=== PATIENT | male | born 1980 | race Caucasian/White ===

== ENCOUNTER → 2018-12-17 10:09 | Outpatient (CLI) | payer OTHER, SELFPAY ==
[2018-12-17 12:47] LABS: ALB/GLOB Ratio 1.1 RATIO (0.9-2.4); AST(SGOT) 71 U/L (15-37); Alanine Aminotransfer ALT/SGPT 90 U/L (16-61); Albumin, Serum 4.2 g/dL (3.2-5.0); Alkaline Phosphatase 85 U/L (45-117); Anion Gap 4 (5-15); BUN 11 mg/dL (7-18); BUN/Creat Ratio 11.3 RATIO (10-20); Calcium,Total 9.3 mg/dL (8.5-10.1); Chloride 109 mmol/L (98-107); Creatinine, Serum 0.97 mg/dL (0.70-1.30); EST Glomerular Filtration Rate 91 mL/min (>60); Est Glom Filt Rate - Afr Amer 110 mL/min (>60); Globulin 3.9 g/dL (2.2-4.2); Glucose 99 mg/dL (74-106); Potassium 4.5 mmol/L (3.5-5.1); Protein, Total 8.1 g/dL (6.4-8.2); Sodium Level 142 mmol/L (136-145)
[2018-12-17 12:57] LABS: Hemoglobin A1c 5.7 % (4.2-6.3)
== END ==
PROVIDERS: Family Provider Family Medicine; PCP Family Medicine; Referring Provider Family Medicine; Visit Provider Family Medicine
DX: R74.0 Nonspecific elevation of levels of transaminase and lactic acid dehydrogenase [LDH] (principal); R73.01 Impaired fasting glucose
CPT/HCPCS: 36415; 80053; 83036

== ENCOUNTER → 2018-12-24 09:59 | Outpatient (CLI) | payer OTHER, SELFPAY ==
--- NOTE | 2018-12-24 10:04 | US_ITS ---
STUDY: ABDOMINAL ULTRASOUND - RIGHT UPPER QUADRANT REASON FOR VISIT: Male, 38 years old. Elevated LFTs. TECHNIQUE: Ultrasound evaluation of the right upper quadrant was performed with real-time and static sunshine-scale imaging. TECHNICAL QUALITY: Adequate. COMPARISON: None. FINDINGS: Liver: The liver measures 18.0 cm. There is increased echogenicity consistent with fatty infiltration. The bile ducts are within normal limits. There is hepatic color flow. The direction of portal flow is hepatopetal. There is no demonstrated mass lesion. Portal vein diameter: 12.5 mm. Gallbladder: Normal distended gallbladder. The gallbladder wall measures 2.0 mm. There is a negative sonographic Kolb's sign. There is no pericholecystic fluid. There are multiple echogenic structures within the gallbladder, consistent with multiple gallstones. One of the largest is 12.6 mm diameter. Common Bile Duct (C.B.D.): The common bile duct measures 1 mm. Pancreas: Normal size of the visualized neck and body of the pancreas. The head and tail of the pancreas are partially obscured. There is normal echogenicity of the visualized pancreas. There is no demonstrated pancreatic mass or cyst. Right Kidney: Normal size of the right kidney. The right kidney measures 11.5 x 5.7 x 6.2 cm. Normal renal cortex. The right cortex measures 1.9 cm. There is no demonstrated renal mass or cyst. There is no right hydronephrosis. US/Abdomen Limited IMPRESSION: 1. Gallstones. No sonographic sign of acute cholecystitis or bile duct obstruction. 2. Mild hepatomegaly with steatosis. 3. Right kidney and visualized portions of the pancreas are unremarkable. Electronically Signed: Rey Sood MD at 18:14 EDT , Service support ,
== END ==
PROVIDERS: Family Provider Family Medicine; PCP Family Medicine; Referring Provider Family Medicine; Visit Provider Family Medicine
DX: R94.5 Abnormal results of liver function studies (principal)
CPT/HCPCS: 76705

== ENCOUNTER → 2019-12-21 09:42 | Outpatient (CLI) | payer OTHER, SELFPAY ==
[2019-12-21 12:27] LABS: AST(SGOT) 74 U/L (15-37); Alanine Aminotransfer ALT/SGPT 82 U/L (16-61); Albumin, Serum 4.1 g/dL (3.2-5.0); Alkaline Phosphatase 81 U/L (45-117); Bilirubin, Direct 0.16 mg/dL (0.00-0.30); Protein, Total 8.1 g/dL (6.4-8.2)
== END ==
PROVIDERS: PCP Family Medicine; Referring Provider Family Medicine; Visit Provider Family Medicine
DX: R79.89 Other specified abnormal findings of blood chemistry (principal)
CPT/HCPCS: 36415; 80076

== ENCOUNTER 2021-07-10 09:11 | Outpatient (CLI) | payer OTHER, SELFPAY ==
--- NOTE | 2021-07-10 09:15 | RAD_ITS ---
STUDY: X-RAY - RIGHT WRIST REASON FOR EXAM: Male, 40 years old. PAIN TECHNIQUE: 3 view(s) of the wrist were obtained. COMPARISON: None. FINDINGS: Normal visualized distal radius and ulna. Normal radiocarpal articulation. Normal distal radioulnar articulation. Normal carpal bones. Normal carpal articulations. Normal carpometacarpal articulation of the thumb. Normal second through fifth carpometacarpal articulations. Normal visualized metacarpal bones. The soft tissue structures are unremarkable. RAD/Wrist min 3 Views IMPRESSION: Normal x-ray examination of the wrist. Electronically Signed: Alberto Woodard MD at 10:22 EDT ,
[2021-07-10 10:39] LABS: ALB/GLOB Ratio 1.1 RATIO (0.9-2.4); AST(SGOT) 65 U/L (15-37); Alanine Aminotransfer ALT/SGPT 79 U/L (16-61); Albumin, Serum 4.2 g/dL (3.2-5.0); Alkaline Phosphatase 76 U/L (45-117); Anion Gap 3 (5-15); BUN 12 mg/dL (7-18); BUN/Creat Ratio 12.2 RATIO (10-20); Calcium,Total 9.5 mg/dL (8.5-10.1); Chloride 107 mmol/L (98-107); Cholesterol 201 mg/dL (200); Creatinine, Serum 0.98 mg/dL (0.70-1.30); EST Glomerular Filtration Rate 88 mL/min (>60); Est Glom Filt Rate - Afr Amer 107 mL/min (>60); Globulin 3.8 g/dL (2.2-4.2); Glucose 103 mg/dL (74-106); High Density Lipoprotein 33 mg/dL; Potassium 4.3 mmol/L (3.5-5.1); Sodium Level 139 mmol/L (136-145); Triglycerides 180 mg/dL; Very Low Density Lipoprotein 36 mg/dL (5-40)
== END 2021-07-10 23:59 | disposition home or self-care (01) ==
LOC: MTLAB 09:13
PROVIDERS: PCP Family Medicine; Referring Provider Family Medicine; Visit Provider Family Medicine
DX: E78.5 Hyperlipidemia, unspecified (principal); R79.89 Other specified abnormal findings of blood chemistry; M25.531 Pain in right wrist
CPT/HCPCS: 36415; 73110; 80053; 80061

== ENCOUNTER 2021-07-25 07:19 | Outpatient (CLI) | payer OTHER, SELFPAY ==
--- NOTE | 2021-07-25 07:26 | MRI_ITS ---
STUDY: MRI RIGHT WRIST WITHOUT CONTRAST REASON FOR EXAM: Right wrist pain for about a year, no specific injury. TECHNIQUE: Standardized fat and water weighted pulse sequences were obtained in all 3 orthogonal planes. COMPARISON: Radiographs 07/10/2021. FINDINGS: Normal visualized distal radius and ulna. There is negative ulnar variance. Normal distal radioulnar articulation (DRUJ). There is a very small central perforation of the radial aspect of the triangular fibrocartilage (inversion recovery coronal image 13). There is decreased T1 bone marrow signal throughout most of the lunate (T1 coronal images 10-15) with only very mild edema of the lunate (inversion recovery coronal images 11-14) and a fracture of the dorsal aspect of the lunate (T2 sagittal images 14, 15) consistent with Kienbock''s disease. There is cystic change of the radial aspect of the capitate (inversion recovery coronal image 13). Normal radiocarpal, intercarpal and midcarpal articulations. Normal pisotriquetral articulation. Normal visualized interosseous scapholunate ligament. Normal extensor tendons. Normal flexor tendons. Normal carpal tunnel with a normal median nerve. Normal carpometacarpal articulation of the thumb. Normal second through fifth carpometacarpal articulations. Normal visualized metacarpal bones. There is no demonstrated soft tissue abnormality. MRI/Upper Ext Joint Only(Routine) IMPRESSION: Kienbock''s disease. Very small central perforation radial aspect of the triangular fibrocartilage. Electronically Signed: Ozzie Chavez MD at 8:59 EDT ,
== END 2021-07-25 23:59 | disposition home or self-care (01) ==
LOC: MRI 07:21
PROVIDERS: PCP Family Medicine; Referring Provider Family Medicine; Visit Provider Family Medicine
DX: M25.531 Pain in right wrist (principal)
CPT/HCPCS: 73221

== ENCOUNTER → 2021-11-14 | Outpatient (CLI) | payer OTHER, SELFPAY ==
[2021-11-14 13:28] LABS: Uric Acid 6.4 mg/dL (3.5-7.2)
== END | disposition home or self-care (01) ==
LOC: MFPLAB 11:30
PROVIDERS: PCP Family Medicine; Referring Provider Family Medicine; Visit Provider Family Medicine
DX: M10.9 Gout, unspecified (principal)
CPT/HCPCS: 36415; 84550

== ENCOUNTER → 2022-07-16 | Outpatient (CLI) | payer OTHER, SELFPAY ==
[2022-07-16 13:06] LABS: ALB/GLOB Ratio 1.2 RATIO (0.9-2.4); AST(SGOT) 64 U/L (15-37); Alanine Aminotransfer ALT/SGPT 85 U/L (16-61); Albumin, Serum 4.2 g/dL (3.2-5.0); Alkaline Phosphatase 84 U/L (45-117); Anion Gap 5 (5-15); BUN 10 mg/dL (7-18); BUN/Creat Ratio 10.1 RATIO (10-20); Calcium,Total 9.1 mg/dL (8.5-10.1); Chloride 109 mmol/L (98-107); Cholesterol 191 mg/dL (200); Creatinine, Serum 0.99 mg/dL (0.70-1.30); EST Glomerular Filtration Rate 87 mL/min (>60); Est Glom Filt Rate - Afr Amer 105 mL/min (>60); Globulin 3.6 g/dL (2.2-4.2); Glucose 93 mg/dL (74-106); High Density Lipoprotein 34 mg/dL; Protein, Total 7.8 g/dL (6.4-8.2); Sodium Level 141 mmol/L (136-145); Triglycerides 179 mg/dL; Uric Acid 6.9 mg/dL (3.5-7.2); Very Low Density Lipoprotein 36 mg/dL (5-40)
== END | disposition home or self-care (01) ==
LOC: MFPLAB 11:03
PROVIDERS: PCP Family Medicine; Visit Provider Family Medicine
DX: R79.89 Other specified abnormal findings of blood chemistry (principal); E78.5 Hyperlipidemia, unspecified; M10.9 Gout, unspecified
CPT/HCPCS: 36415; 80053; 80061; 84550

== ENCOUNTER → 2022-07-26 | Outpatient (CLI) | payer OTHER, SELFPAY ==
--- NOTE | 2022-07-26 09:55 | US_ITS ---
STUDY: ABDOMINAL ULTRASOUND - RIGHT UPPER QUADRANT REASON FOR VISIT: Male, 41 years old ELEVATED LFTS TECHNIQUE: Ultrasound evaluation of the right upper quadrant was performed with real-time and static sunshine-scale imaging. TECHNICAL QUALITY: Adequate. COMPARISON: Comparison is made with prior study dated December 24, 2018. FINDINGS: Liver: The liver measures 17 cm. There is increased echogenicity consistent with fatty infiltration. The bile ducts are within normal limits. There is hepatic color flow. The direction of portal flow is hepatopetal. There is no demonstrated mass lesion. Gallbladder: Normal distended gallbladder. The gallbladder wall measures 2.0 mm. There is a negative sonographic Kolb''s sign. There is no pericholecystic fluid. There are multiple echogenic structures within the gallbladder, consistent with multiple gallstones. Common Bile Duct (C.B.D.): The common bile duct measures 3.0 mm. Pancreas: There is limited visualization of the pancreas due to overlying bowel gas. There is normal echogenicity of the pancreas. There is no demonstrated pancreatic mass or cyst. Right Kidney: Normal size of the right kidney. The right kidney measures 11.1 cm x 6.6 x 6.5 cm. Normal renal cortex. The right cortex measures 2.3 cm. There is no demonstrated renal mass or cyst. There is no right hydronephrosis. IMPRESSION: Borderline hepatomegaly and fatty infiltration of the liver. Multiple gallstones. Electronically Signed: Juan Morrell MD at 12:45 EDT , STUDY: ABDOMINAL ULTRASOUND - ELASTOGRAPHY REASON FOR VISIT: Male, 41 years old. Fatty liver. TECHNIQUE: Liver stiffness measurements were obtained on a Soxiable 85 ultrasound machine using a CA 1-7 probe following the SRU guidelines. 3 measurements were obtained using a 2-D-SWE method. TheIQR/M was 119% suggesting a quality data set. TECHNICAL QUALITY: Adequate. COMPARISON: Comparison is made with prior examination done earlier in the day. FINDINGS: Liver: Mild hepatomegaly and fatty infiltration of the liver. Median liver stiffness measured 8 kPa. US/ABD Limited w/ Elastography IMPRESSION: Liver stiffness measures 8 kPa compatible with F2-F3 (Mild to moderate liver fibrosis) Metavir score. Electronically Signed: Juan Morrell MD at 12:46 EDT ,
== END | disposition home or self-care (01) ==
LOC: US 09:54
PROVIDERS: PCP Family Medicine; Referring Provider Family Medicine; Visit Provider Family Medicine
DX: R79.89 Other specified abnormal findings of blood chemistry (principal)
CPT/HCPCS: 76705; 76981

== ENCOUNTER → 2022-11-23 | Outpatient (CLI) | payer OTHER, SELFPAY ==
[2022-11-23 10:40] LABS: Absolute Neutrophil Count 4.8 X10^3/uL (2.0-7.7); Basophil# 0.08 X10^3/uL; Basophil% 0.9 % (0-1); Eosinophil# 0.07 X10^3/uL; Eosinophils% 0.8 % (0-5); Hemoglobin 15.7 g/dL (13.0-16.5); Lymphocyte % 32.4 % (19-41); Mean Corp Hgb Conc 33.4 g/dL (32-36); Mean Corpuscular Hgb 28.9 pg (27.0-32.0); Mean Corpuscular Volume 86.4 fL (80-94); Mean Platelet Vol. 10.6 fl (6.2-12.0); Monocyte# 1.06 X10^3/uL; Monocyte% 11.9 % (0-10); NRBC Flagged by Analyzer 0 % (0-5); Neutrophil # 4.81 X10^3/uL (2.7-7.7); Neutrophil % 53.8 % (47-70); Platelet Count 268 K/mm3 (150-450); RBC Distribution Width CV 13.2 % (11.6-14.6); RBC Distribution Width SD 41.4 fl (35.1-43.9); RET-HE 32.7 pg (30-35); Red Blood Count 5.44 M/mm3 (4.6-6.2); Reticulocyte Count 1.02 % (0.5-1.5); White Blood Count 8.9 K/mm3 (4.4-11.0)
[2022-11-23 10:42] LABS: Erythrocyte Sedimentation Rate 7 mm/hr (0-20)
[2022-11-23 11:31] LABS: Hemoglobin A1c 5.6 % (3.8-5.6)
[2022-11-23 11:40] LABS: AST(SGOT) 46 U/L (15-37); Alanine Aminotransfer ALT/SGPT 68 U/L (16-61); Albumin, Serum 3.9 g/dL (3.2-5.0); Alkaline Phosphatase 86 U/L (45-117); Anion Gap 3 (5-15); BUN 12 mg/dL (7-18); BUN/Creat Ratio 12.9 RATIO (10-20); CPK Total, Creatine Kinase 279 U/L (39-308); CRP < 2.90 mg/L (0.0-3.0); Calcium,Total 9.2 mg/dL (8.5-10.1); Chloride 109 mmol/L (98-107); Creatinine, Serum 0.93 mg/dL (0.70-1.30); EST Glomerular Filtration Rate 94 mL/min (>60); Est Glom Filt Rate - Afr Amer 113 mL/min (>60); Ferritin 293 ng/mL (26-388); GGTP 27 U/L (15-85); Glucose 113 mg/dL (74-106); Iron 79 ug/dL (65-175); Iron Binding Capacity,Total 340 ug/dL (250-450); LDH 182 U/L (87-241); Potassium 4.1 mmol/L (3.5-5.1); Protein, Total 7.9 g/dL (6.4-8.2); Sodium Level 141 mmol/L (136-145)
[2022-11-23 11:56] LABS: HIV - WCH Non-Reactive (Nonreactive)
[2022-11-24 08:11] LABS: Thyroid Peroxidase AB < 9 IU/mL (0-34)
[2022-11-26 13:07] LABS: Anti-Centromere B Ab <0.2 AI (0.0-0.9); Anti-Chromatin <0.2 AI (0.0-0.9); Anti-Jo <0.2 AI (0.0-0.9); Anti-Mitochondrial AB <20.0 Units (0.0-20.0); Anti-Scleroderma-70 AB <0.2 AI (0.0-0.9); Anti-dsDNA Ab <1 IU/mL (0-9); RNP Ab <0.2 AI (0.0-0.9); SJOGREN'S Anti-SS-A test < 0.2 AI (0.0-0.9); SJOGREN'S Anti-SS-B test < 0.2 AI (0.0-0.9); Smith Ab <0.2 AI (0.0-0.9)
[2022-11-28 21:08] LABS: AFP, Tumor Marker < 1.8 ng/mL (0.0-6.9); Aldolase 4.1 U/L (3.3-10.3); Alpha-1-Globulins 0.2 g/dL (0.0-0.4); Alpha-2-Globulins 0.7 g/dL (0.4-1.0); Angiotensin Convert Enzyme 38 U/L (14-82); Anti-Smooth Muscle ABS 8 Units (0-19); CMV Acute Antibody IgM < 30.0 AU/mL (0.0-29.9); CMV Antibody IgG < 0.60 U/mL (0.00-0.59); Ceruloplasmin 21.7 mg/dL (16.0-31.0); Copper, Serum or Plasma 93 ug/dL (69-132); Cytoplasmic Ab (C-ANCA) <1:20 titer (Neg:<1:20); Deamidated Gliadin IgA 7 units (0-19); Deamidated Gliadin IgG 3 units (0-19); EBV Acute VCA IgM < 36.0 U/mL (0.0-35.9); EBV Nuclear Antigen IgG > 600.0 U/mL (0.0-17.9); Endomysial Antibody IgA Negative (Negative); Gamma Globulin 1.2 g/dL (0.4-1.8); HEPATITIS B SURFACE AG Negative (Negative); Haptoglobin 127 mg/dL (23-355); Hep C Antibodies Non Reactive (Non Reactive); Hepatitis A IgM Antibody Negative (Negative); Hepatitis B Core AB IgM Negative (Negative); IMMUNOFIXATION RESULT,S Comment: (.); Immunoglobulin A 233 mg/dL (90-386); Immunoglobulin G 1286 mg/dL (603-1613); Immunoglobulin M 73 mg/dL (20-172); PROEL- TOTAL PROTEIN 7.2 g/dL (6.0-8.5); Perinuclear Ab (P-ANCA) <1:20 titer (Neg:<1:20); QNTFERON TB Mitogen Value > 10.00 IU/mL (.); QNTFERON TB Nil Value 0.04 IU/mL (.); QNTFERON TB1+ Ag Value 0.04 IU/mL (.); QNTFERON TB2+ Ag Value 0.04 IU/mL (.); QNTIFERON TB Positive Criteria Negative (Negative); t-Transglutaminase IgA <2 U/mL (0-3)
== END | disposition home or self-care (01) ==
LOC: LAB 10:09
PROVIDERS: PCP Family Medicine; Referring Provider Internal Medicine Gastroenterology; Visit Provider Internal Medicine Gastroenterology
DX: R79.89 Other specified abnormal findings of blood chemistry (principal)
CPT/HCPCS: 36415; 80053; 80074; 82085; 82105; 82140; 82164; 82390; 82525; 82550; 82728; 82784; 82977; 83010; 83036; 83516; 83540; 83550; 83615; 84165; 84443; 85025; 85045; 85610; 85652; 86140; 86225; 86235; 86255; 86256; 86334; 86376; 86480; 86644; 86645; 86664; 86665; 86703

== ENCOUNTER → 2022-12-10 | Outpatient (CLI) | payer OTHER, SELFPAY ==
--- NOTE | 2022-12-10 08:43 | US_ITS ---
STUDY: ABDOMINAL ULTRASOUND - ELASTOGRAPHY REASON FOR VISIT: Male, 42 years old. Fatty infiltration of the liver. TECHNIQUE: Liver stiffness measurements were obtained on a Modafir[employer] RS 85 ultrasound machine using a CA 1-7 probe following the SRU guidelines. 3 measurements were obtained using a 2-D-SWE method. TheIQR/M was 15% suggesting a quality data set. TECHNICAL QUALITY: Adequate. COMPARISON: Comparison is made with prior study July 26, 2022. FINDINGS: Liver: Fatty infiltration of the liver. Median liver stiffness measured 6 kPa. Abdomen: There is no demonstrated mass lesion. US/Elastography Parenchyma/Organ IMPRESSION: Liver stiffness measures 6 kPa compatible with F2-F3 (Mild to moderate liver fibrosis) Metavir score. Electronically Signed: Juan Morrell MD at 15:13 EDT ,
== END | disposition home or self-care (01) ==
PROVIDERS: PCP Family Medicine; Referring Provider Internal Medicine Gastroenterology; Visit Provider Internal Medicine Gastroenterology
DX: R79.89 Other specified abnormal findings of blood chemistry (principal)
CPT/HCPCS: 76981

== ENCOUNTER → 2023-01-07 | Outpatient (CLI) | payer OTHER, SELFPAY ==
--- NOTE | 2023-01-07 08:53 | RAD_ITS ---
EXAM: XR RIGHT HIP WITH PELVIS WHEN PERFORMED, 2 OR 3 VIEWS CLINICAL INDICATION: pain, loss motion TECHNIQUE: Two or three views of the right hip with pelvis when performed. COMPARISON: No relevant prior studies available. FINDINGS: BONES/JOINTS: Unremarkable. No displaced fracture. No destructive or sclerotic lesions. Note that overlapping bowel shadows may however obscure fine detail. Sacroiliac joint is unremarkable. No widening of the pubic symphysis. The articular structures are unremarkable. SOFT TISSUES: Unremarkable. No soft tissue swelling or gas. RAD/HIP, UNI W/ Pelvis 2-3 Views IMPRESSION: No evidence of displaced pelvic or hip fracture. Electronically Signed: Woo Sheehan MD at 1:01 EDT ,
== END | disposition home or self-care (01) ==
LOC: MTRAD 08:37
PROVIDERS: PCP Family Medicine; Referring Provider Family Medicine; Visit Provider Family Medicine
DX: M25.551 Pain in right hip (principal)
CPT/HCPCS: 73502

== ENCOUNTER → 2023-05-23 | Outpatient (CLI) | payer OTHER, SELFPAY ==
[2023-05-23 13:59] LABS: International Normalized Ratio 0.9; Prothrombin Time (Protime)PT. 12.5 SECONDS (11.7-14.9)
[2023-05-23 14:01] LABS: ALB/GLOB Ratio 1.1 RATIO (0.9-2.4); AST(SGOT) 44 U/L (15-37); Alanine Aminotransfer ALT/SGPT 72 U/L (16-61); Albumin, Serum 4.1 g/dL (3.2-5.0); Alkaline Phosphatase 82 U/L (45-117); Anion Gap 1 (5-15); BUN 12 mg/dL (7-18); BUN/Creat Ratio 14.2 RATIO (10-20); CRP < 2.90 mg/L (0.0-3.0); Calcium,Total 9.3 mg/dL (8.5-10.1); Chloride 108 mmol/L (98-107); Creatinine, Serum 0.84 mg/dL (0.70-1.30); EST Glomerular Filtration Rate 105 mL/min (>60); Est Glom Filt Rate - Afr Amer 126 mL/min (>60); Globulin 3.9 g/dL (2.2-4.2); Glucose 100 mg/dL (74-106); Potassium 3.8 mmol/L (3.5-5.1); Sodium Level 137 mmol/L (136-145)
--- NOTE | 2023-05-23 14:02 | CT_ITS ---
STUDY: CT ABDOMEN AND PELVIS WITH CONTRAST REASON FOR EXAM: Male, 42 years old. RUQ pain, occ diarrhea. Gallstones in US. -- Persistent, low-intensity RUQ pain. NO FEVER RADIATION DOSAGE (If Supplied By Facility): CTDIvol = ( 15.66 ) mGy, DLP = ( 1194.70 ) mGycm TECHNIQUE: Transaxial images were obtained from the dome of the diaphragm to the symphysis pubis without oral contrast. 100ML ISOVUE 370 was administered. Sagittal and coronal images were reconstructed. Individualized dose optimization techniques were used for this CT. COMPARISON: None. FINDINGS: The visualized lung bases are unremarkable. The visualized portions of the heart are within normal limits. There is decreased attenuation of the liver consistent with steatosis. Borderline hepatomegaly. There are multiple gallstones. Normal spleen. Normal pancreas. Normal bilateral adrenal glands. Normal right kidney. Normal left kidney. Normal visualized stomach. Normal small intestine. Normal colon. The appendix is visualized and appears normal. Normal abdominal aorta. Normal inferior vena cava. Normal retroperitoneum. Normal urinary bladder. There is a right-sided inguinal hernia containing adipose tissue. There are mild degenerative changes of the visualized lumbar spine. Straightening of the normal lumbar lordosis. CT/Abdomen/Pelvis WITH Contrast IMPRESSION: Borderline hepatomegaly and diffuse fatty infiltration of the liver. Multiple gallstones. Electronically Signed: Juan Morrell MD at 14:59 EST ,
[2023-05-25 08:13] LABS: Carbohydrate AG 19-9 18 U/mL (0-35)
== END | disposition home or self-care (01) ==
PROVIDERS: PCP Family Medicine; Referring Provider Internal Medicine; Visit Provider Internal Medicine
DX: R10.11 Right upper quadrant pain (principal); R19.7 Diarrhea, unspecified; R79.89 Other specified abnormal findings of blood chemistry
CPT/HCPCS: 36415; 74177; 80053; 85610; 86140; 86301; Q9967

== ENCOUNTER 2023-06-20 06:37 | Day surgery (SDC) | payer OTHER, SELFPAY ==
--- NOTE | 2023-06-19 | IMM_PTH ---
PATHOLOGY RESULTS PATIENT: SUZI SPENCER LOC: EN U#:[id number] AGE/SX: 42/M ROOM: RE06/20/[address]: Dr. Seth Alvarado DO : 1980 BED: DIS: 06/20/2023 SPEC #: [id number] RECD: 06/21/23 13:17 STATUS: KYMBERLY REQ #: [id number] SAGE: 06/19/23 00:[address]: Seth Alvarado DEPT: IMMUNOHISTOCHEMISTRY RECD BY: Kelly Ferris ENTERED: 06/21/23 13:20 SP TYPE: IMMUNO OTHR DR: Dr. Prashant Taveras MD Tissues: Esophagus, NOS Procedures: P53 (initial) KI-67 (add) PHYSICIAN & INSTITUTION [place] [id number] SPECIMEN INFORMATION: Tissue Source: B - Distal esophagus Clinical Info: Elevated LFTs, NAFLD, abdominal pain Specimen Number: [id number] CPT code: 54092, 00740 METHODOLOGY: Deparaffinized sections of prefer/formalin-fixed tissue or PAP/DQ stained slides are incubated with monoclonal/polyclonal antibodies/oligonucleotide probes. Localization is made via biotin free immunoperoxidase method. Appropriate controls are performed and reacted as expected. Results on target cell population are indicated in the following table: RESULTS: ANTIBODY / CLONE RESULT Block B P53 (DO-7) negative, null pattern Ki-67 (30-9) positive, low These tests were developed and their performance characteristics determined by [facility]. They may not have been cleared or approved by the U.S. Food and Drug Administration. The FDA has determined that such clearance or approval is not necessary. The above immunohistochemical/dualISH markers are ordered and reviewed by the Pathologist. INTERPRETATION: B. Distal esophagus, biopsy: No evidence of dysplasia. AM:eduardo 06/24/2023
--- NOTE | 2023-06-19 07:30 | COLBX_PTH ---
PATHOLOGY RESULTS PATIENT: SUZI SPENCER LOC: EN U#:[id number] AGE/SX: 42/M ROOM: RE06/20/[address]: Dr. Seth Alvarado DO : 1980 BED: DIS: 06/20/2023 SPEC #: [id number] RECD: 06/20/23 10:38 STATUS: KYMBERLY DUDLEY #: [id number] SAGE: 06/19/23 07:[address]: Seth Alvarado DEPT: SURGICAL PATHOLOGY RECD BY: Lety Vargas ENTERED: 06/20/23 10:39 SP TYPE: COLON BX OTHR DR: Dr. Prashant Taveras MD Tissues: Duodenum, NOS Esophageal mucous membrane Procedures: Surgery Specimen Level IV HEADER OPERATION: Colonoscopy, EGD with biopsy PRE-OP DIAGNOSIS: Elevated LFTs, NAFLD, abdominal pain TISSUE SUBMITTED: A - Duodenum biopsy, B - Distal esophagus biopsy MICROSCOPIC DIAGNOSIS A. Duodenum, biopsy: Gastric metaplasia. Minimal nonspecific chronic inflammation. B. Distal esophagus, biopsy: Gastroesophageal junctional mucosa with chronic inflammation. 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 No evidence of dysplasia. See comment. AM:eduardo 06/21/2023 COMMENT B. Immunohistochemistry ([id number]) for P53 and Ki-67 will be performed and results will be reported separately. Alcian blue/PAS stain with matched control supports the above diagnosis. MICROSCOPIC DESCRIPTION Slides are reviewed. GROSS DESCRIPTION A - Received in fixative is one container labeled with the patient's name and designated duodenum. The specimen consists of two irregular fragments of light phelps soft tissue that in aggregate measure 0.6 x 0.6 x 0.1 cm. The specimen is totally submitted in one cassette. B - Received in fixative is one container labeled with the patient's name and designated distal esophagus biopsy. The specimen consists of two irregular fragments of light phelps soft tissue that in aggregate measure 0.7 x 0.6 x 0.1 cm. The specimen is totally submitted in one cassette. / AM:eduardo 06/20/2023 TC:3 CPT: 67394 x2, 48408
[2023-06-20 06:56] VITALS: BP 132/85; PULSE 60; RESP 16; TEMP 36.1; O2SAT 98; BMI 35.4
[2023-06-20] MEDS: Lactated Ringers 1,000 ML 15 ML IV (07:05)
--- OUTSIDE RECORDS SUMMARY | 2023-06-20 07:27 | XMS RPT_ITS | CCD ---
Author Name Unknown Address [address] [place] [address] Organization [facility] Care Team Providers Care Safety Patrol Officer Name Role Phone Neal Quintanilla MD Unavailable Medications Completed/Discontinued Medications Medication Drug Class(es) Dates Sig (Normalized) Sig (Original) Multivitamin preparation (1 source) take 1 tablet by mouth once daily MULTI-VITAMINS TABS 1 tablet by mouth once a day multivitamin [id number] Chen Muller Problems Active Problems Problem Classification Problem Date Documented Da te Episodic/Chronic Other bone disease and musculoskeletal deformities (1 source) Progressive avascular necrosis of lunate; 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] Onset: 08-08-2021 08-08-2021 Chronic Past or Other Problems Problem Classification Problem Date Documented Da te Episodic/Chronic Unclassified (1 source) Problem Results Test Name Value Interpretation Reference Range Facil ity Vital Signs Date Time Vital Sign Value Performing Clinician Facility NEGATED: Highlighted [id number] 09:15-0400 Body height 178 cm [facility] Work Phone: NEGATED: Highlighted [id number] 09:15-0400 Body height 177.8 cm [facility] Work Phone: NEGATED: Highlighted [id number] 09:15-0400 Body mass index (BMI) [Ratio] 34.56 kg/m2 [facility] Work Phone: NEGATED: Highlighted [id number] 09:15-0400 Body weight 109 kg [facility] Work Phone: NEGATED: Highlighted [id number] 09:15-0400 Body weight 108.86 kg Gena Pérez LPN [facility] Work Phone: Encounters Encounter Date Encounter Type Care Provider Facility Start: 08-08-2021 End: 08-08-2021 Ot evaluation Neal Quintanilla MD Work Phone: [facility] Work Phone: Procedures Date Procedure Procedure Detail Performing Clinician Start: 08-08-2021 End: 08-08-2021 BP scrn no perf at interval Neal Quintanilla MD Work Phone: Start: 08-08-2021 End: 08-08-2021 Calc BMI abv up allyson f/u Neal Quintanilla MD Work Phone: Start: 08-08-2021 End: 08-08-2021 Current tobacco non-user cad cap copd pv dm Neal Quintanilla MD Work Phone: Start: 08-08-2021 End: 08-08-2021 Docrev cur meds by amy Quintanilla MD Work Phone: Start: 08-08-2021 End: 08-08-2021 Pain doc pos and plan Neal Quintanilla MD Work Phone: Start: 08-08-2021 End: 08-08-2021 Patient encounter procedure Neal Quintanilla MD Work Phone: NEGATED: Highlighted rowStart: 08-08-2021 End: 08-08-2021 Documentation of current medications Gena Pérez LPN Plan of Treatment Date Care Activity Detail Author Start: 08-08-2021 End: 08-08-2021 Patient encounter procedure Appointment [facility] Work Phone: Start: 08-08-2021 End: 08-08-2021 Radex wrist complete minimum 3 views XR WRIST 3 VWS-RT [facility] Work Phone: Social History Date Type Detail Facility Start: 08-08-2021 End: 08-08-2021 Assertion Unknown if ever smoked [facility] Work Phone: NEGATED: Highlighted rowStart: 08-08-2021 End: 08-08-2021 Employment detail Employment detail [facility] Work Phone: Evaluation note Note Date & Type Note Facility Evaluation note There may be informa tion available, but it has not been provided by the sender. [facility] Work Phone: Instructions Note Date & Type Note Facility [facility] Work Phone: Chief Complaint Chief Complaint Description Start Date right wrist Preliminary chief co mplaint data, not yet signed by the author as of Advance Directives There may be information available, but it has not been provided by the sender. Family History There may be information available, but it has not been provided by the sender. Additional Source Comments Reason for Visit (unrecogniz ed section and content) FOR RECORDS PERTAINING TO PATIENTS WHO ARE OR HAVE BEEN ENROLLED IN A CHEMICAL DEPENDENCY/SUBSTANCEABUSE PROGRAM, SOME INFORMATION MAY BE OMITTED. This clinical summary was aggregated from multiple sources. Caution should be exercised in using it in the provision of clinical care. This summary normalizes information from multiple sources, and as a consequence, information in this document may materially change the coding, format and clinical context of patient data. In addition, data may be omitted in some cases. CLINICAL DECISIONS SHOULD BE BASED ON THE PRIMARY CLINICAL RECORDS. [employer] [facility]. provides no warranty or guarantee of the accuracy or completeness of information in this document.
--- NOTE | 2023-06-20 07:37 | HP.PCM_ITS ---
History and Physical Date of Admission: 06/20/23 SUZI SPENCER, is a 42 M who presents to the office today for follow up. PCP OV . for well check noting no cigarette, alcohol or illicit drug use. Notes history of elevated LFT. Biochemical 07.16.22 CMP, uric acid, triglycerides, lipids without pertinent abnormality. AST H64-ALT H85-AP 84 US RUQ and elastography 4.6.23 hepatic measurement 17cm with fatty infiltration and stiffness 8kPa *BGI established 8.4.23 for liver abnormality findings. Denies alcoholism, illicit drug use, FH liver disease or blood transfusions. US elastography .- Stiffness measures 6 kPa OV 1..- Pt well since last visit. Reports daily RUQ pain persistent, last for 2 to 3 hours gets better with Tums, more persistent for the last 3 months although it was occasional, on and off pain for the last 1 year. Sometimes, wakes him up during the night. Has occasion heartburn. Patient also states occasionally he has watery bowel movement every couple of months for about 1 year. Mother of pancreatic cancer. Is having a BM at least once a day. Lab tests from previous visit reviewed and discussed with patient and her . ROS Const Constitutional: No fatigue ENT ENT: No difficulty swallowing Gastro GI: Positive for abdominal pain and heartburn; No belching, bloating, change in bowel habits, change in stool character, coffee ground emesis, constipation, cramping, diarrhea, difficulty swallowing, feeling full early, excessive flatus, incontinent of stools, Vomiting blood/hematemesis, Blood in stool, loose stools, Black,tarry stools, nausea/dyspepsia, pain with swallowing, vomiting or other Musc Musculoskeletal: Positive for joint pain, back pain, numbness, stiffness and tingling Skin Skin: No yellowing of the eye or itchy eyes Neuro Neurology: Positive for numbness and tingling Psych Psychiatric: No anxiety and No depression Endo Endocrine: No fatigue Aller/Imm Allergy/Immunologic: No itchy eyes Oneal/Lymp Hematologic/Lymphatic: No easy bleeding or easy bruising Exam Const General: cooperative, no acute distress and well developed Nutritional Appearance: overweight Orientation: alert, awake and oriented x3 HENMT Head: normocephalic and atraumatic Nose: external nose normal Face and sinus: normal facial exam Mouth: moist mucous membranes Eyes Pupils: PERRL EOM: EOM intact bilaterally Neck Neck: normal visual inspection, no meningeal signs and trachea midline Carotids: no bruits Chest Chest palpation & inspection: normal inspection of the chest Resp Effort & Inspection: normal respiratory effort and symmetric chest movement Auscultation: Bilateral: Clear to Auscultation Cardio Palpation: normal PMI Rate: regular rate Rhythm: regular rhythm Heart Sounds: S1 normal and S2 normal GI Auscultation: normal bowel sounds Percussion: normal to percussion Palpation: soft, no hepatosplenomegaly and no guarding Other: Mild tenderness around right subcostal margin. No tenderness over epigastrium or other quadrants. Liver not enlarged. Spleen not palpable. Clinically no ascites. General: bimanual renal exam normal bilaterally, bladder normal to inspection and bladder normal to palpation Musc Musculoskeletal: No joint tenderness, joint redness, joint warmth or decreased range of motion Thoracic/Lumbar Spine: thor and lumb spine abnorm to inspection Skin General: rashes and/or lesions noted, turgor normal and no erythema Wounds: wound noted Neuro General: patient alert, patient awake, patient oriented x3 and no focal motor deficits Speech: speech normal Motor: muscle tone normal throughout Extrem General: normal exam except as noted Other: No pitting edema. Psych Appearance: grossly normal Mood: congruent mood Affect: normal affect Attitude: cooperative Assessment and Plan Assessment and Plan (1) Elevated LFTs: Status: Chronic Plan: This is 42-year-old gentleman who was established in the [facility] office in November 2022 referred for elevated liver chemistry. Patient has elevated ALT and AST 82 and 74 respectively which has improved to 68 and 46 now. His extensive workup was negative for celiac disease, autoimmune disease, ceruloplasmin, QuantiFERON test. Protein electrophoresis also looks normal fractionation of albumin, alpha-1, alpha-2 and beta globulin, and gammaglobulin. But it was reported that presence of monoclonal protein unclear but clinically patient has normal calcium does not have any bony pain anion gap therefore suspicion of monoclonal gammopathy/MGUS or multiple myeloma unlikely. Patient has elevated IgG of EBV which shows past exposure/infection. Patient had liver elastography shows 6 kPa compatible with F2 F3 liver fibrosis. Previous RUQ sonogram in July 2021 shows borderline hepatomegaly with fatty infiltration and multiple gallstones but no features of acute cholecystitis. Normal echogenicity of pancreas with no pancreatic mass or cyst. Patient further stated that his sister was diagnosed with cholangiocarcinoma and his mother recently of pancreatic cancer. CA 19-9 is ordered. Diagnosis unclear but may be NICOLAS or gallstones or peptic ulcer disease. The future course of action discussed with the patient and his . Will start with CT abdomen pelvis with oral and IV contrast, EGD and colonoscopy. If it is still diagnosis unclear will further discuss for liver biopsy/MRCP. Will follow-up in [address] abdomen pelvis, EGD and colonoscopy. (2) NAFLD (nonalcoholic fatty liver disease): Status: Chronic Plan: Possible NICOLAS but liver chemistry improving. (3) Abdominal pain: Status: Acute Qualifiers: Abdominal location: right upper quadrant Qualified Code(s): R10.11 - Right upper quadrant pain Plan: As discussed above. Orders: Orders CRP Today R10.9 - Unspecified abdominal pain Prothrombin Time w/INR Today R10.9 - Unspecified abdominal pain Comprehensive Metabolic Profil Today R10.9 - Unspecified abdominal pain Abdomen/Pelvis WITH Contrast 1 Week R10.9 - Unspecified abdominal pain Carbohydrate AG 19-9 Today R10.9 - Unspecified abdominal pain, R79.89 - Other specified abnormal findings of blood chemistry I have examined the patient and the H&P has been reviewed. There are no clinical changes since date of exam.
[2023-06-20 08:10] VITALS: BP 101/73; BP 132/85; PULSE 59; RESP 16; TEMP 36.1; O2SAT 95
[2023-06-20 08:15] VITALS: BP 132/85; BP 99/66; PULSE 57; RESP 16; O2SAT 95
--- NOTE | 2023-06-20 08:16 | OP.EGD_ITS ---
Patient Name: Jeremy Johnson Procedure Date: 06/20/2023 7:35 AM Date of : 1980 Age: 42 Procedure: Upper GI endoscopy Indications: Epigastric abdominal pain, Functional Dyspepsia Providers: Seth Alvarado DO Referring MD: Landen Taveras Medicines: Monitored Anesthesia Care Patient Profile: This is a 42 year old male. Refer to note in patient chart for documentation of history and physical. Patient has symptoms of chronic abdominal cramping, chronic abdominal distention and chronic epigastric abdominal pain. Complications: No immediate complications. Procedure: Pre-Anesthesia Assessment: - Prior to the procedure, a History and Physical was performed, and patient medications and allergies were reviewed. The patient is competent. The risks and benefits of the procedure and the sedation options and risks were discussed with the patient. All questions were answered and informed consent was obtained. Patient identification and proposed procedure were verified by the physician in the pre-procedure area. Mental Status Examination: alert and oriented. Airway Examination: normal oropharyngeal airway and neck mobility. Respiratory Examination: clear to auscultation. CV Examination: normal. Prophylactic Antibiotics: The patient does not require prophylactic antibiotics. Prior Anticoagulants: The patient has taken no anticoagulant or antiplatelet agents. ASA Grade Assessment: II - A patient with mild systemic disease. After reviewing the risks and benefits, the patient was deemed in satisfactory condition to undergo the procedure. The anesthesia plan was to use monitored anesthesia care (MAC). Immediately prior to administration of medications, the patient was re-assessed for adequacy to receive sedatives. The heart rate, respiratory rate, oxygen saturations, blood pressure, adequacy of pulmonary ventilation, and response to care were monitored throughout the procedure. The physical status of the patient was re-assessed after the procedure. After obtaining informed consent, the endoscope was passed under direct vision. Throughout the procedure, the patient's blood pressure, pulse, and oxygen saturations were monitored continuously. The Colonoscope was introduced through the mouth, and advanced to the second part of duodenum. The upper GI endoscopy was accomplished without difficulty. The patient tolerated the procedure well. Scope In: 7:45:10 AM Scope Out: 7:50:36 AM Total Procedure Duration Time 0 hours 5 minutes 26 seconds Findings: The Z-line was irregular and was found 39 cm from the incisors. Biopsies were taken with a cold forceps for histology. Verification of patient identification for the specimen was done. Estimated blood loss was minimal. A medium-sized hiatal hernia was present. No other significant abnormalities were identified in a careful examination of the stomach. Diffuse moderate inflammation characterized by congestion (edema), erosions, erythema and granularity was found in the duodenal bulb, in the first portion of the duodenum and in the second portion of the duodenum. Biopsies were taken with a cold forceps for histology. Verification of patient identification for the specimen was done. Estimated blood loss was minimal. Impression: - Z-line irregular, 39 cm from the incisors. Biopsied. - Medium-sized hiatal hernia. - Bile duodenitis. Biopsied. Recommendation: - Discharge patient to home. - Resume previous diet. - Continue present medications. - Await pathology results. Procedure Code(s): --- Professional --- 95306, Esophagogastroduodenoscopy, flexible, transoral; with biopsy, single or multiple CPT copyright 2021 [employer]. All rights reserved. The codes documented in this report are preliminary and upon criminal intelligence analyst review may be revised to meet current compliance requirements. Seth Alvarado DO 06/20/2023 8:16:26 AM This report has been signed electronically. Number of Addenda: 0 Note Initiated On: 06/20/2023 7:35 AM
--- NOTE | 2023-06-20 08:16 | OP.CCLET_ITS ---
06/20/2023 Landen Taveras [address] [place] [address] Re : Upper GI endoscopy procedure for Jeremy Johnson Dear Dr. Taveras This procedure was performed on June 20, 2023. My impressions and recommendations are as follows: Impressions : - Z-line irregular, 39 cm from the incisors. Biopsied. - Medium-sized hiatal hernia. - Bile duodenitis. Biopsied. Recommendations : - Discharge patient to home. - Resume previous diet. - Continue present medications. - Await pathology results. My findings are described in the full procedure note, which is enclosed. If I can be of further assistance, please feel free to contact me at . Sincerely, Seth Alvarado, 06/20/2023 8:16:26 AM This report has been signed electronically.
--- NOTE | 2023-06-20 08:18 | OP.CCLET_ITS ---
06/20/2023 Landen Taveras [address] [place] [address] Re : Colonoscopy procedure for Jeremy Johnson Dear Dr. Taveras This procedure was performed on June 20, 2023. My impressions and recommendations are as follows: Impressions : - No specimens collected. Recommendations : - Discharge patient to home. - Resume previous diet. - Continue present medications. - Repeat colonoscopy in 10 years for screening purposes. My findings are described in the full procedure note, which is enclosed. If I can be of further assistance, please feel free to contact me at . Sincerely, Seth Alvarado, 06/20/2023 8:18:19 AM This report has been signed electronically.
--- NOTE | 2023-06-20 08:18 | OP.COLON_ITS ---
Patient Name: Jeremy Johnson Procedure Date: 06/20/2023 7:50 AM Date of : 1980 Age: 42 Procedure: Colonoscopy Indications: Screening for colorectal malignant neoplasm Providers: Seth Alvarado DO Referring MD: Landen Taveras Medicines: Monitored Anesthesia Care Patient Profile: This is a 42 year old male. Refer to note in patient chart for documentation of history and physical. Patient has symptoms of chronic abdominal cramping, chronic abdominal distention and chronic epigastric abdominal pain. Last Colonoscopy: none. The patient's first colonoscopy is today. Complications: No immediate complications. Procedure: Pre-Anesthesia Assessment: - Prior to the procedure, a History and Physical was performed, and patient medications and allergies were reviewed. The patient is competent. The risks and benefits of the procedure and the sedation options and risks were discussed with the patient. All questions were answered and informed consent was obtained. Patient identification and proposed procedure were verified by the physician in the pre-procedure area. Mental Status Examination: alert and oriented. Airway Examination: normal oropharyngeal airway and neck mobility. Respiratory Examination: clear to auscultation. CV Examination: normal. Prophylactic Antibiotics: The patient does not require prophylactic antibiotics. Prior Anticoagulants: The patient has taken no anticoagulant or antiplatelet agents. ASA Grade Assessment: II - A patient with mild systemic disease. After reviewing the risks and benefits, the patient was deemed in satisfactory condition to undergo the procedure. The anesthesia plan was to use monitored anesthesia care (MAC). Immediately prior to administration of medications, the patient was re-assessed for adequacy to receive sedatives. The heart rate, respiratory rate, oxygen saturations, blood pressure, adequacy of pulmonary ventilation, and response to care were monitored throughout the procedure. The physical status of the patient was re-assessed after the procedure. After I obtained informed consent, the scope was passed under direct vision. Throughout the procedure, the patient's blood pressure, pulse, and oxygen saturations were monitored continuously. The Colonoscope was introduced through the anus and advanced to the cecum, identified by appendiceal orifice and ileocecal valve. The colonoscopy was performed without difficulty. The patient tolerated the procedure well. The quality of the bowel preparation was good. The ileocecal valve, appendiceal orifice, and rectum were photographed. Scope In: 7:52:26 AM Scope Withdrawal Time 0 hours 10 minutes 58 seconds Scope Out: 8:06:18 AM Total Procedure Duration Time 0 hours 13 minutes 52 seconds Findings: The perianal and digital rectal examinations were normal. Impression: - No specimens collected. Recommendation: - Discharge patient to home. - Resume previous diet. - Continue present medications. - Repeat colonoscopy in 10 years for screening purposes. Procedure Code(s): --- Professional --- G0121, Colorectal cancer screening; colonoscopy on individual not meeting criteria for high risk CPT copyright 2021 [employer]. All rights reserved. The codes documented in this report are preliminary and upon remote medical coder review may be revised to meet current compliance requirements. Seth Avlarado DO 06/20/2023 8:18:19 AM This report has been signed electronically. Number of Addenda: 0 Note Initiated On: 06/20/2023 7:50 AM
[2023-06-20 08:20] VITALS: BP 132/85; BP 97/65; PULSE 59; RESP 16; O2SAT 95
[2023-06-20 08:30] VITALS: BP 118/77; BP 132/85; PULSE 55; RESP 16; TEMP 36.4; O2SAT 96
[2023-06-20 09:05] VITALS: BP 132/85
== END 2023-06-20 09:10 | disposition home or self-care (01) ==
LOC: EN 07:22 → AC 07:23
PROVIDERS: PCP Family Medicine; Referring Provider Family Medicine; Visit Provider Internal Medicine Gastroenterology
PROC: 0DJD8ZZ Inspection of Lower Intestinal Tract, Via Natural or Artificial Opening Endoscopic (ICD-10-PCS; CPT 45378; principal; 2023-06-20 07:25)
DX: Z12.11 Encounter for screening for malignant neoplasm of colon (principal); K44.9 Diaphragmatic hernia without obstruction or gangrene; K76.0 Fatty (change of) liver, not elsewhere classified; K29.80 Duodenitis without bleeding; K30 Functional dyspepsia; R79.89 Other specified abnormal findings of blood chemistry; R10.11 Right upper quadrant pain
CPT/HCPCS: 43239; 45378; 88305; 88341; 88342; J7120; J2405

== ENCOUNTER → 2023-09-26 | Outpatient (CLI) | payer OTHER, SELFPAY ==
--- NOTE | 2023-09-26 07:20 | US_ITS ---
STUDY: ABDOMINAL ULTRASOUND - RIGHT UPPER QUADRANT; ELASTOGRAPHY REASON FOR VISIT: Male, 43 years old. Right upper quadrant pain. NAFLD. TECHNIQUE: Ultrasound evaluation of the right upper quadrant was performed with real-time and static sunshine-scale imaging. Point quantification shear wave elastography was performed ([facility]). TECHNICAL QUALITY: Limited. Examination limited due to a combination of factors including obesity and bowel gas. COMPARISON: Comparison is made with prior study July 26, 2022. FINDINGS: Liver: The liver is mildly enlarged and measures 18.5 cm. There is increased echogenicity consistent with fatty infiltration. The bile ducts are within normal limits. There is hepatic color flow. The direction of portal flow is hepatopetal. There is no demonstrated mass lesion. Focal area of decrease echotexture in the gallbladder fossa suggestive of focal fatty sparing. Median liver stiffness measured 7.2 kPa. Gallbladder: Normal distended gallbladder. The gallbladder wall measures 2.1 mm. There is a negative sonographic Kolb''s sign. There is no pericholecystic fluid. There are multiple echogenic structures within the gallbladder, consistent with multiple gallstones. Common Bile Duct (C.B.D.): The common bile duct measures 4.3 mm. Pancreas: There is normal echogenicity of the visualized pancreas. There is no demonstrated pancreatic mass or cyst. Right Kidney: Normal size of the right kidney. The right kidney measures 11.8 cm x 5.5 cm x 6.1 cm. Normal renal cortex. The right cortex measures 1.3 cm. There is no demonstrated renal mass or cyst. There is no right hydronephrosis. US/ABD Limited w/ Elastography IMPRESSION: 1. Liver stiffness measures 7.2 kPa compatible with F2-F3 (Mild to moderate liver fibrosis) Metavir score. 2. Mild hepatomegaly and fatty infiltration of the liver. 3. Multiple gallstones. Electronically Signed: Juan Morrell MD at 8:59 EDT ,
== END | disposition home or self-care (01) ==
PROVIDERS: PCP Family Medicine; Referring Provider Internal Medicine; Visit Provider Internal Medicine
DX: R10.9 Unspecified abdominal pain (principal); K76.0 Fatty (change of) liver, not elsewhere classified; R79.89 Other specified abnormal findings of blood chemistry
CPT/HCPCS: 76705; 76981

== ENCOUNTER → 2024-01-30 | Outpatient (CLI) | payer OTHER, SELFPAY ==
--- NOTE | 2024-01-30 09:45 | NM_ITS ---
CLINICAL: 43-year-old male with history of right upper quadrant abdominal pain. RADIONUCLIDE HEPATOBILIARY SCINTIGRAPHY COMPARISON: Abdominal ultrasound report 09/26/2023 FINDINGS: Following the intravenous administration of 5.9 mCi of 99m Tc Mebrofenin, hepatobiliary images reveal: 1. Relatively prompt and homogeneous radiopharmaceutical concentration is noted by a normal sized liver. No parenchymal defects are identified. 2. Gallbladder activity is identified at 30 minutes post radiopharmaceutical administration. 3. Small intestinal tract is observed at 10 minutes following tracer injection. 4. Washout of the radiopharmaceutical by the hepatic parenchyma appears qualitatively normal. Cholecystokinin (0.02 ug/kg) was administered intravenously over a 30-minute period. The post CCK gallbladder ejection fraction calculated at 21 minutes following Cholecystokinin administration was noted to be 76.0 % (normal greater than 35%). During 30 minutes of post CCK imaging, there is no scintigraphic evidence of reflux of the radiotracer into the common hepatic duct or refilling of the gallbladder. [place]/Hepatobilliary Img w/Pharm Int IMPRESSION: 1. NORMAL 99m Tc Mebrofenin hepatobiliary imaging examination with Cholecystokinin. A. A gallbladder ejection fraction calculated to be greater than 35% following the administration of Cholecystokinin makes the probability of functional hepatobiliary disease (gallbladder and/or sphincter of Oddi dyskinesia) and/or organic hepatobiliary disease (chronic acalculous cholecystitis and/or cystic duct syndrome) to be low. (Eloisa Richards et al, Journal of Nuclear Medicine 32:1695, 1991). Electronically Signed: Alberto Temple DO at 18:35 EDT ,
== END | disposition home or self-care (01) ==
PROVIDERS: PCP Family Medicine; Referring Provider Internal Medicine; Visit Provider Internal Medicine
DX: K80.00 Calculus of gallbladder with acute cholecystitis without obstruction (principal); K76.0 Fatty (change of) liver, not elsewhere classified
CPT/HCPCS: 78227; A9537; J2805

== ENCOUNTER → 2024-03-12 | Outpatient (CLI) | payer OTHER, SELFPAY ==
--- NOTE | 2024-03-12 08:08 | MRI_ITS ---
STUDY: MRI LUMBAR SPINE WITHOUT CONTRAST REASON FOR EXAM: Male, 43 years old. pain and gt;6 months. into right hip paresthesias TECHNIQUE: Standardized fat and water weighted pulse sequences were obtained in the sagittal and axial planes. COMPARISON: None FINDINGS: T12-L1: Normal endplates. Normal disc height, hydration and morphology. Normal bilateral facet joints. Normal central canal and bilateral lateral recesses. Normal bilateral intervertebral neural foramina. Normal lumbar lordosis. There is no substantial scoliosis. Normal conus medullaris that terminates at the L1/L2. L1-2: Normal endplates. Normal disc height, hydration and morphology. Normal bilateral facet joints. Normal central canal and bilateral lateral recesses. Normal bilateral intervertebral neural foramina. L2-3: Normal endplates. Normal disc height, hydration and morphology. Normal bilateral facet joints. Normal central canal and bilateral lateral recesses. Normal bilateral intervertebral neural foramina. L3-4: Small central disc protrusion produces mild spinal stenosis. No neural foraminal stenosis. L4-5: Mild bilateral facet hypertrophy and moderate ligament flavum hypertrophy. Mild broad disc protrusion produces mild spinal stenosis and mild bilateral neural foraminal stenosis. L5-S1: Mild bilateral facet hypertrophy and ligamentum flavum hypertrophy. 2 mm retrolisthesis of L5 on S1 with a mild broad disc protrusion produces moderate spinal stenosis, moderate right neural foraminal stenosis and severe left neural foraminal stenosis with effacement of left L5 nerve root laterally. Normal visualized sacral ala. Normal visualized paraspinous soft tissue structures. MRI/Spine Lumbar (Routine) IMPRESSION: Multilevel degenerative changes, as described above. Electronically Signed: Alberto Woodard MD at 12:01 EST ,
[2024-03-12 08:29] LABS: Hematocrit 45.8 % (40-54); Hemoglobin 15.4 g/dL (13.0-16.5); Mean Corp Hgb Conc 33.6 g/dL (32-36); Mean Corpuscular Hgb 28.9 pg (27.0-32.0); Mean Corpuscular Volume 85.9 fL (80-94); Platelet Count 265 K/mm3 (150-450); Red Blood Count 5.33 M/mm3 (4.6-6.2); White Blood Count 8.9 K/mm3 (4.4-11.0)
[2024-03-12 09:11] LABS: Vitamin D,25 Hydroxy 37.2 ng/mL
[2024-03-12 09:32] LABS: ALB/GLOB Ratio 1.1 RATIO (0.9-2.4); AST(SGOT) 54 U/L (15-37); Alanine Aminotransfer ALT/SGPT 75 U/L (16-61); Albumin, Serum 3.9 g/dL (3.2-5.0); Alkaline Phosphatase 86 U/L (45-117); Anion Gap 4 (5-15); BUN 15 mg/dL (7-18); BUN/Creat Ratio 17.1 RATIO (10-20); Calcium,Total 8.9 mg/dL (8.5-10.1); Chloride 112 mmol/L (98-107); Creatinine, Serum 0.88 mg/dL (0.70-1.30); EST Glomerular Filtration Rate 100 mL/min (>60); Est Glom Filt Rate - Afr Amer 120 mL/min (>60); Globulin 3.6 g/dL (2.2-4.2); Glucose 112 mg/dL (74-106); Potassium 4.1 mmol/L (3.5-5.1); Protein, Total 7.5 g/dL (6.4-8.2); Sodium Level 142 mmol/L (136-145); Uric Acid 6.1 mg/dL (3.5-7.2)
[2024-03-13 04:08] LABS: GGTP 24 IU/L (0-65)
== END | disposition home or self-care (01) ==
LOC: MRI 08:05
PROVIDERS: PCP Family Medicine; Referring Provider Family Medicine; Visit Provider Family Medicine
DX: M10.9 Gout, unspecified (principal); K76.0 Fatty (change of) liver, not elsewhere classified; M54.50 Low back pain, unspecified
CPT/HCPCS: 36415; 72148; 80053; 82306; 82977; 84550; 85027

== ENCOUNTER → 2024-04-30 | Outpatient (CLI) | payer OTHER, SELFPAY ==
[2024-04-30 09:28] LABS: Absolute Lymphocyte Count 2.75 X10^3/uL (0.83-4.51); Absolute Neutrophil Count 4.4 X10^3/uL (2.0-7.7); Basophil# 0.11 X10^3/uL; Basophil% 1.3 % (0-1); Eosinophil# 0.14 X10^3/uL; Eosinophils% 1.7 % (0-5); Hematocrit 48.5 % (40-54); Lymphocyte # 2.75 X10^3/ul (0.83-4.51); Lymphocyte % 33.1 % (19-41); Mean Corpuscular Hgb 28.1 pg (27.0-32.0); Mean Corpuscular Volume 85.2 fL (80-94); Mean Platelet Vol. 10.9 fl (6.2-12.0); Monocyte# 0.94 X10^3/uL; Monocyte% 11.3 % (0-10); NRBC Flagged by Analyzer 0 % (0-5); Neutrophil # 4.36 X10^3/uL (2.7-7.7); Neutrophil % 52.4 % (47-70); Platelet Count 253 K/mm3 (150-450); RBC Distribution Width CV 12.9 % (11.6-14.6); RBC Distribution Width SD 39.8 fl (35.1-43.9); Red Blood Count 5.69 M/mm3 (4.6-6.2); White Blood Count 8.3 K/mm3 (4.4-11.0)
[2024-04-30 09:33] LABS: Prothrombin Time (Protime)PT. 13.1 SECONDS (11.7-14.9)
[2024-04-30 09:48] LABS: Hemoglobin A1c 5.9 % (3.8-5.6)
[2024-04-30 10:14] LABS: ALB/GLOB Ratio 1.1 RATIO (0.9-2.4); AST(SGOT) 65 U/L (15-37); Alanine Aminotransfer ALT/SGPT 86 U/L (16-61); Alkaline Phosphatase 87 U/L (45-117); Anion Gap 5 (5-15); BUN 14 mg/dL (7-18); BUN/Creat Ratio 15.4 RATIO (10-20); Bilirubin, Direct 0.11 mg/dL (0.00-0.30); CRP < 2.90 mg/L (0.0-3.0); Calcium,Total 9.4 mg/dL (8.5-10.1); Chloride 108 mmol/L (98-107); Cholesterol 207 mg/dL (200); Creatinine, Serum 0.91 mg/dL (0.70-1.30); EST Glomerular Filtration Rate 95 mL/min (>60); Est Glom Filt Rate - Afr Amer 115 mL/min (>60); Globulin 3.8 g/dL (2.2-4.2); Glucose 116 mg/dL (74-106); High Density Lipoprotein 37 mg/dL; Potassium 4.5 mmol/L (3.5-5.1); Protein, Total 7.8 g/dL (6.4-8.2); Sodium Level 139 mmol/L (136-145); Triglycerides 118 mg/dL; Very Low Density Lipoprotein 24 mg/dL (5-40)
== END | disposition home or self-care (01) ==
PROVIDERS: PCP Family Medicine; Referring Provider Internal Medicine; Visit Provider Internal Medicine
DX: K76.0 Fatty (change of) liver, not elsewhere classified (principal); R19.7 Diarrhea, unspecified; R10.9 Unspecified abdominal pain
CPT/HCPCS: 36415; 80053; 80061; 82248; 83036; 85025; 85610; 86140

== ENCOUNTER → 2024-09-28 | Outpatient (CLI) | payer OTHER, SELFPAY ==
--- NOTE | 2024-09-28 10:00 | US_ITS ---
PROCEDURE: ABD LIMITED W/ ELASTOGRAPHY REASON FOR EXAM: LIVER FIBROSIS, ELEVATED LFT COMPARISON: Prior study dated September 26, 2023. TECHNIQUE: Right upper quadrant abdominal ultrasound. [facility] ElastQ Imaging shear wave elastography for non-invasive assessment of liver tissue stiffness. [facility] EPIQ Elite. FINDINGS: LIVER: Size: Enlarged (hepatomegaly) Length: 18.8 cm Echotexture: Diffusely echogenic suggesting fatty infiltration Contour: Normal Lesions: None identified Elastography: EQI Med: 5.1 kPa EQI Med Primitivo: 1.29 m/s IQR/Med: 22 %* GALLBLADDER: Multiple echogenic gallstones are identified. COMMON BILE DUCT: Normal measuring 3 mm . PANCREAS: Normal Visualized portions of the right kidney are unremarkable. No right upper quadrant ascites. US/ABD Limited w/ Elastography IMPRESSION: NO TO MILD HEPATIC FIBROSIS Reference Values: SRU <1.37 m/s (5.7kPa): No to mild fibrosis 1.37 m/s - 2.2 m/s: Moderate to severe fibrosis >2.2 m/s (15kPa): Significant fibrosis / cirrhosis METAVIR Score F2 or higher: 1.34 m/s (5.7kPa) F3 or higher: 1.55 m/s (7.3kPa) F4: 1.80 m/s (10kPa) * If the IQR/Med is >30%, the variance in the measurements is a large and the a ccuracy of the measurement may be in question. Reading Location: [place] [address]
--- OUTSIDE RECORDS SUMMARY | 2024-09-28 22:03 | XMS RPT_ITS | CCD ---
Author Organization [facility] Care Team Providers Care Netezza Developer Name Role Phone Dwight FRASER, Neal Coronado Unavailable Dr. Landen Taveras Primary Care Provider Dr. Landen Taveras Referring Provider FriendDr. Ann Attending Provider [phone] Dr. Landen Taveras Primary Care Provider Dr. Landen Taveras Referring Provider Dr. John Brand Attending Provider [phone] FriendDr. Ann Attending Provider [phone] FriendDr. Ann Other Provider John Brand Attending Unavailable Ranney, Christopher Primary Care Unavailable Rantasneem, Prashant Referring Unavailable Wuney, Christopher Primary Care Unavailable John Brand Attending Unavailable Wuney, Christophzach Referring Unavailable Ranney, Christopher Primary Care Unavailable Salvatore Low Attending Unavailable Sunday, John Referring Unavailable Ranney, Christopher Referring Unavailable John Brand Attending Unavailable Ranney, Christopher Primary Care Unavailable John Brand Attending Unavailable Sunday, John Referring Unavailable Ranney, Christopher Primary Care Unavailable Ranney, Christopher Primary Care Unavailable Prashant Taveras Attending Unavailable Ranney, Christopher Referring Unavailable John Brand Attending Unavailable Ranney, Christopher Primary Care Unavailable Sunday, John Referring Unavailable Ranney, Christopher Primary Care Unavailable Seth Alvarado Attending Unavailable Prashant Taveras Primary Care Unavailable John Brand Attending Unavailable John Brand Referring Unavailable John Brand Attending Unavailable Prashant Taveras Primary Care Unavailable John Brand Referring Unavailable Medications Current Medications Medication Drug Class(es) Dates Sig (Normalized) Sig (Original) Multivitamin (Daily Multi-Vitamin) tablet (1 source) Start: 06-17-2023 take 1 tablet by mouth once daily Multivitamin (Daily Multi-Vitamin) tablet Active 1 TABLET PO DAILY June 17, 2023 12:00am Completed/Discontinued Medications Medication Drug Class(es) Dates Sig (Normalized) Sig (Original) Multivitamin preparation (1 source) take 1 tablet by mouth once daily MULTI-VITAMINS TABS 1 tablet by mouth once a day multivitamin [id number] Chen Muller Problems Active Problems Problem Classification Problem Date Documented Da te Episodic/Chronic Abdominal pain (6 sources) Abdominal pain; Translations: [Unspecified abdominal pain] Onset: 10-04-2023 05-10-2023 Episodic Biliary tract disease (2 sources) Calculus of gallbladder without cholecystitis without obstruction; Translations: [Calculus of gallbladder with acute cholecystitis without obstruction] Onset: 02-20-2024 Episodic Disorders of lipid metabolism (1 source) Hyperlipidemia, unspecified; Translations: [Hyperlipidemia, unspecified] Onset: 09-23-2024 Chronic Gout and other crystal arthropathies (1 source) Gout, unspecified; Translations: [Gout, unspecified] Onset: 04-10-2024 Chronic Other bone disease and musculoskeletal deformities (1 source) Progressive avascular necrosis of lunate; 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] Onset: 08-08-2021 08-08-2021 Chronic Other liver diseases (6 sources) Fatty (change of) liver, not elsewhere classified; Translations: [Nonalcoholic fatty liver disease] Onset: 05-21-2024 05-10-2023 Chronic Other screening for suspected conditions (not mental disorders or infectious disease) (11 sources) Other specified abnormal findings of blood chemistry; Translations: [Elevated liver function tests] Onset: 09-23-2024 11-23-2022 Episodic Past or Other Problems Problem Classification Problem Date Documented Da te Episodic/Chronic Unclassified (1 source) Problem Results Test Name Value Interpretation Reference Range Facility Gastroenterology Visit Repor ton 08-19-2024 Gastroenterology Visit Report [facility] [address] [place] [address] OFFICE VISIT Date of Service: 08/19/24 MR#: [id number] Acct: [id number] Name: SUZI SPENCER Rep #: [id number] : 1980 Provider: Dr. John kinney MD Age/Sex: 43/M Location: [facility] Status: Signed Intake Vital Signs 04/30/24 08:29 08/19/24 08:55 Height 5 ft 9 in 5 ft 9 in Weight: 244 lb 237 lb BMI 36.0 34.9 BP 150/79 H 124/83 H Blood Pressure Location Rt brachial Rt brachial Position Sitting Sitting Respiration 16 Pulse 71 84 Pulse Source Monitor Pulse Oximetry (%) 93 95 Oxygen Delivery Method room air room air Intake Visit Reasons: 4 M FU Radiation Control Health Physicist Required: No Accompanied by: Self Is patient in pain?: No Allergies No Known Allergies Allergy (Verified 08/19/24 08:51) Medications ???Medication ???Instructions ???Recorded ???Confirmed ???Type multivitamin (Daily Multi-Vitamin 1 tab PO DAILY 06/17/23 08/19/24 History tablet) pantoprazole 40 mg tablet,delayed 40 mg PO .breakfast 1 month #30 0 07/24/24 08/19/24 Rx release tabs rosuvastatin 20 mg tablet 20 mg PO .at bed time 3 months #90 08/19/24 08/19/24 Rx tabs PFSH Medical History Back pain Non-smoker Hx of reduction of nasal fracture HLD (hyperlipidemia) Right hip pain Fatty liver Surgical History Hx of knee surgery H/O vasectomy Family History Father Diabetes Grandfather Cancer Sister Diabetes Grandmother Diabetes Lung cancer Mother Diabetes Arthritis Grandfather Heart disease Social History Smoking Status: Never smoker alcohol intake: current alcohol intake frequency: a few times a month substance use type: does not use HPI HPI Details: SUZI SPENCER, is a 43 M who presents to the office today for ???US RUQ and elastography .10.12 hepatic measurement 17cm with fatty infiltration and stiffness 8kPa *BGI established 8.4.23 for liver abnormality findings. Denies alcoholism, illicit drug use, FH liver disease or blood transfusions. US elastography 12.10.22- ???Stiffness measures 6 kPa OV 05.10.23- ???Pt well since last visit. Reports daily RUQ pain persistent, last for 2 to 3 hours gets better with Tums, more persistent for the last 3 months although it was occasional, on and off pain for the last 1 year. ???Sometimes, wakes him up during the night. Has occasion heartburn. ???Patient also states occasionally he has watery bowel movement every couple of months for about 1 year. ???Mother of pancreatic cancer. Is having a BM at least once a day. ???Lab tests from previous visit reviewed and discussed with patient and her . CT abd/pel w/ contrast .05.15- Borderline hepatomegaly with diffuse fatty liver, multiple gallstones EGD 06.20.23- Z-line irregular, medium hiatal hernia, bile duodenitis Pathology- gastric metaplasia, minimal nonspecific chronic inflammation. 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 C/O diarrhea daily but less frequent throughout the day. ???No heartburn or abdominal pain. Continues multivitamin daily. US abd/ elastography .10.13- Liver measures 18.5cm ???Stiffness 7.2 kPa OV 01.01.24- Patient well since last visit. ???About few days ago he had a large pizza at night and then had right quadrant pain severe 7-8/10 intensity similar to gallbladder colic. ???Continues Pantoprazole. BM normal once a day. 03.12.24 ???Fib-4 ???1.06 OV 1.9.25- Patient well since last visit. ???Was referred to general surgery at last visit for gallbladder but declined surgical intervention. Says he has changed his diet and has been avoiding greasy, high fat foods. Has not had anymore abdominal pain. BM are normal. ???No other concerns 04.30.24- ???Fib- 4 ??? . OV 08.19.24 Denies GI concerns at this time. During recent vacation assumes had GI illness that has since resolved. ROS Const Constitutional: No fatigue, fever(s), frequent falls, headache(s), weakness or weight change ENT ENT: No headache(s) or difficulty swallowing Resp Respiratory: No shortness of breath or wheezing Cardio Cardiology: No leg pain with exertion Gastro GI: No abdominal pain, bloating, change in bowel habits, constipation, diarrhea, heartburn, difficulty swallowing, excessive flatus, Vomiting blood/hematemesis, Blood in stool, nausea/dyspepsia or vomiting Genitourinary Male: No difficulty urinating or burning urination Musc Musculoskeletal: Positive for back pain; No joint pain, joint swelli (more content not included)... Normal [facility] Bilirubin, Directon 04-30-19 25 Bilirubin.direct [Mass/Vol] 0.11 mg/dL Normal 0.00-0.30 [facility] Comment on above: Performed By: #### L 500.4100, L501.9985, L500.4050, L300.3900, L100.0100, L501.6710, L501.4700 ####[facility] [address] [place], [place], [id number] CBC W/Diff, Automatedon Absolute Lymph 2.75 X10 3/uL Normal 0.83-4.51 [facility] Comment on above: Performed By: #### L 500.4100, L501.9985, L500.4050, L300.3900, L100.0100, L501.6710, L501.4700 ####[facility] [address] [place], [place], [id number] Absolute Neut 4.4 X10 3/uL Normal 2.0-7.7 [facility] Comment on above: Performed By: #### L 500.4100, L501.9985, L500.4050, L300.3900, L100.0100, L501.6710, L501.4700 ####[facility] [address] [place], [address] Basophils/100 WBC (Bld) 1.3 % High 0-1 [facility] Comment on above: Performed By: #### L 500.4100, L501.9985, L500.4050, L300.3900, L100.0100, L501.6710, L501.4700 ####[facility] [address] [place], [address] Eosinophils/100 WBC (Bld) 1.7 % Normal 0-5 [facility] Comment on above: Performed By: #### L 500.4100, L501.9985, L500.4050, L300.3900, L100.0100, L501.6710, L501.4700 ####[facility] [address] [place], [address] Erythrocyte distribution width (RBC) [Ratio] 12.9 % Normal 11.6-14.6 [facility] Comment on above: Performed By: #### L 500.4100, L501.9985, L500.4050, L300.3900, L100.0100, L501.6710, L501.4700 ####[facility] [address] [place], [address] Hematocrit (Bld) [Volume fraction] 48.5 % Normal 40-54 [facility] Comment on above: Performed By: #### L 500.4100, L501.9985, L500.4050, L300.3900, L100.0100, L501.6710, L501.4700 ####[facility] [address] [place], [address] Hemoglobin (Bld) [Mass/Vol] 16.0 g/dL Normal 13.0-16.5 [facility] Comment on above: Performed By: #### L 500.4100, L501.9985, L500.4050, L300.3900, L100.0100, L501.6710, L501.4700 ####[facility] [address] [place], [address] IG% 0.200 Normal 0.0-0.9 [facility] Comment on above: Result Comment: IG% - Immature Granulocytes (promyelocytes, myelocytes and metamyelocytes) > 1% indicates that a LEFT SHIFT is Present. Performed By: #### L 500.4100, L501.9985, L500.4050, L300.3900, L100.0100, L501.6710, L501.4700 ####[facility] [address] [place], [address] Lymphocytes/100 WBC (Bld) 33.1 % Normal 19-41 [facility] Comment on above: Performed By: #### L 500.4100, L501.9985, L500.4050, L300.3900, L100.0100, L501.6710, L501.4700 ####[facility] [address] [place], [address] MCH (RBC) [Entitic mass] 28.1 pg Normal 27.0-32.0 [facility] Comment on above: Performed By: #### L 500.4100, L501.9985, L500.4050, L300.3900, L100.0100, L501.6710, L501.4700 ####[facility] [address] [place], [address] MCHC (RBC) [Mass/Vol] 33.0 g/dL Normal 32-36 [facility] Comment on above: Performed By: #### L 500.4100, L501.9985, L500.4050, L300.3900, L100.0100, L501.6710, L501.4700 ####[facility] [address] [place], [address] MCV (RBC) [Entitic vol] 85.2 fL Normal 80-94 [facility] Comment on above: Performed By: #### L 500.4100, L501.9985, L500.4050, L300.3900, L100.0100, L501.6710, L501.4700 ####[facility] [address] [place], [address] Monocytes/100 WBC (Bld) 11.3 % High 0-10 [facility] Comment on above: Performed By: #### L 500.4100, L501.9985, L500.4050, L300.3900, L100.0100, L501.6710, L501.4700 ####[facility] [address] [place], [address] Neutrophils/100 WBC (Bld) 52.4 % Normal 47-70 [facility] Comment on above: Performed By: #### L 500.4100, L501.9985, L500.4050, L300.3900, L100.0100, L501.6710, L501.4700 ####[facility] [address] [place], [address] Nucleated RBC (Bld) [#/Vol] 0 10*3/uL Normal 0-5 [facility] Comment on above: Performed By: #### L 500.4100, L501.9985, L500.4050, L300.3900, L100.0100, L501.6710, L501.4700 ####[facility] [address] [place], [address] Platelet mean volume (Bld) [Entitic vol] 10.9 fL Normal 6.2-12.0 [facility] Comment on above: Performed By: #### L 500.4100, L501.9985, L500.4050, L300.3900, L100.0100, L501.6710, L501.4700 ####[facility] [address] [place], [address] Platelets (Bld) [#/Vol] 253 10*3/uL Normal 150-450 [facility] Comment on above: Performed By: #### L 500.4100, L501.9985, L500.4050, L300.3900, L100.0100, L501.6710, L501.4700 ####[facility] [address] [place], [address] RBC (Bld) [#/Vol] 5.69 10*6/uL Normal 4.6-6.[address] [facility] Comment on above: Performed By: #### L 500.4100, L501.9985, L500.4050, L300.3900, L100.0100, L501.6710, L501.4700 ####[facility] [address] [place], [address] RDW SD 39.8 fl Normal 35.1-43.9 [facility] Comment on above: Performed By: #### L 500.4100, L501.9985, L500.4050, L300.3900, L100.0100, L501.6710, L501.4700 ####[facility] [address] [place], [address] WBC (Bld) [#/Vol] 8.3 10*3/uL Normal 4.4-11.0 [facility] Comment on above: Performed By: #### L 500.4100, L501.9985, L500.4050, L300.3900, L100.0100, L501.6710, L501.4700 ####[facility] [address] [place], [address] CRPon 04-30-2024 C-REACTIVE PROT < 2.90 Normal 0.0-3.0 [facility] Comment on above: Result Comment: C-Re active Protein (CRP) provides useful information for the diagnosis, therapy and monitoring of inflammatory processes and associated diseases. For the evaluation of Relative Risk for Cardiovascular Disease, a High Sensitivity CRP (HSCRP) should be ordered. Performed By: #### L 500.4100, L501.9985, L500.4050, L300.3900, L100.0100, L501.6710, L501.4700 ####[facility] [address] [place], [address] Comprehensive Metabolic Prof ilon 04-30-2024 Albumin [Mass/Vol] 4.0 g/dL Normal 3.2-5.0 [facility] Comment on above: Performed By: #### L 500.4100, L501.9985, L500.4050, L300.3900, L100.0100, L501.6710, L501.4700 ####[facility] [address] [place], [place], [id number] Albumin/Globulin [Mass ratio] 1.1 {ratio} Normal 0.9-2.4 [facility] Comment on above: Performed By: #### L 500.4100, L501.9985, L500.4050, L300.3900, L100.0100, L501.6710, L501.4700 ####[facility] [address] [place], [place], [id number] ALK P 87 U/L Normal 45-117 [facility] Comment on above: Performed By: #### L 500.4100, L501.9985, L500.4050, L300.3900, L100.0100, L501.6710, L501.4700 ####[facility] [address] [place], [place], [id number] ALT [Catalytic activity/Vol] 86 U/L High 16-61 [facility] Comment on above: Performed By: #### L 500.4100, L501.9985, L500.4050, L300.3900, L100.0100, L501.6710, L501.4700 ####[facility] [address] [place], [address] AST [Catalytic activity/Vol] 65 U/L High 15-37 [facility] Comment on above: Performed By: #### L 500.4100, L501.9985, L500.4050, L300.3900, L100.0100, L501.6710, L501.4700 ####[facility] [address] [place], [address] Bilirubin [Mass/Vol] 0.40 mg/dL Normal 0.20-1.00 [facility] Comment on above: Result Comment: For patients on eltrombopag therapy, use of Dimension [place] TBIL is not recommended. Performed By: #### L 500.4100, L501.9985, L500.4050, L300.3900, L100.0100, L501.6710, L501.4700 ####[facility] [address] [place], [address] BUN/CRE 15.4 RATIO Normal 10-20 [facility] Comment on above: Performed By: #### L 500.4100, L501.9985, L500.4050, L300.3900, L100.0100, L501.6710, L501.4700 ####[facility] [address] [place], [address] CA,Total 9.4 mg/dL Normal 8.5-10.1 [facility] Comment on above: Performed By: #### L 500.4100, L501.9985, L500.4050, L300.3900, L100.0100, L501.6710, L501.4700 ####[facility] [address] [place], [address] Chloride [Moles/Vol] 108 mmol/L High 98-107 [facility] Comment on above: Performed By: #### L 500.4100, L501.9985, L500.4050, L300.3900, L100.0100, L501.6710, L501.4700 ####[facility] [address] [place], [address] CO2 [Moles/Vol] 26.0 mmol/L Normal 21.0-32.0 [facility] Comment on above: Performed By: #### L 500.4100, L501.9985, L500.4050, L300.3900, L100.0100, L501.6710, L501.4700 ####[facility] [address] [place], [address] Creatinine [Mass/Vol] 0.91 mg/dL Normal 0.70-1.30 [facility] Comment on above: Result Comment: The validity of the calculated GFR GFRAA in patients over 70 years has not been determined. Clinical correlation is essential. Performed By: #### L 500.4100, L501.9985, L500.4050, L300.3900, L100.0100, L501.6710, L501.4700 ####[facility] [address] [place], [address] EST GFR - AA 115 mL/min Normal >60 [facility] Comment on above: Result Comment: Afri can [place] GFR Calc Performed By: #### L 500.4100, L501.9985, L500.4050, L300.3900, L100.0100, L501.6710, L501.4700 ####[facility] [address] [place], [address] GAP 5 Normal 5-15 [facility] Comment on above: Performed By: #### L 500.4100, L501.9985, L500.4050, L300.3900, L100.0100, L501.6710, L501.4700 ####[facility] [address] [place], [address] GFR/1.73 sq M.predicted among non-blacks MDRD (S/P/Bld) [Vol rate/Area] 95 mL/min/{1.73_m2} Normal >60 [facility] Comment on above: Result Comment: Non- GFR Calc Performed By: #### L 500.4100, L501.9985, L500.4050, L300.3900, L100.0100, L501.6710, L501.4700 ####[facility] [address] [place], [address] Globulin (S) [Mass/Vol] 3.8 g/dL Normal 2.2-4.2 [facility] Comment on above: Performed By: #### L 500.4100, L501.9985, L500.4050, L300.3900, L100.0100, L501.6710, L501.4700 ####[facility] [address] [place], [address] Glucose [Mass/Vol] 116 mg/dL High 74-106 [facility] Comment on above: Result Comment: Fast ing Glucose result from 100 to 125 mg/dL suggests IMPAIRED HOMEOSTASIS per A.D.A. criteria. Performed By: #### L 500.4100, L501.9985, L500.4050, L300.3900, L100.0100, L501.6710, L501.4700 ####[facility] [address] [place], [address] Potassium [Moles/Vol] 4.5 mmol/L Normal 3.5-5.1 [facility] Comment on above: Performed By: #### L 500.4100, L501.9985, L500.4050, L300.3900, L100.0100, L501.6710, L501.4700 ####[facility] [address] [place], [address] Sodium [Moles/Vol] 139 mmol/L Normal 136-145 [facility] Comment on above: Performed By: #### L 500.4100, L501.9985, L500.4050, L300.3900, L100.0100, L501.6710, L501.4700 ####[facility] [address] [place], [address] T PROT 7.8 g/dL Normal 6.4-8.2 [facility] Comment on above: Performed By: #### L 500.4100, L501.9985, L500.4050, L300.3900, L100.0100, L501.6710, L501.4700 ####[facility] [address] [place], [address] Urea nitrogen [Mass/Vol] 14 mg/dL Normal 7-18 [facility] Comment on above: Performed By: #### L 500.4100, L501.9985, L500.4050, L300.3900, L100.0100, L501.6710, L501.4700 ####[facility] [address] [place], [address] Gastroenterology Visit Repor ton 04-30-2024 Gastroenterology Visit Report [facility] [address] [place] [address] OFFICE VISIT Date of Service: 04/30/24 MR#: [id number] Acct: [id number] Name: SUZI SPENCER Rep #: [id number] : 1980 Provider: Dr. John kinney MD Age/Sex: 43/M Location: [facility] Status: Signed with Addenda ADDENDUM by Dr. John Brand MD on 07/24/24 at 1541 HPI Details: SUZI SPENCER, is a 43 M who presents to the office today for Addendum His home medications will start he is already on pantoprazole but I sent the refill. Schedule repeat EGD in 1 to 2 months. There is only with Cruz's esophagus with no dysplasia, EGD once in 2-3 years recommended depending on the size of the segment of the Cruz's esophagus. As per last EGD, its only reported Z-line irregular without mention of Cruz's segment but pathology shows gastric metaplasia with no dysplasia therefore he has Cruz's esophagus. 07/24/24 1541 Date John Brand MD cc: Dr. Prashant Taveras MD * Signed Intake Vital Signs 01/01/24 08:25 02/21/24 13:36 04/30/24 08:29 Height 5 ft 9 in 5 ft 9 in 5 ft 9 in Weight: 244 lb 244 lb BMI 36.0 36.0 BP 138/80 H 150/79 H Blood Pressure Location Rt brachial Rt brachial Position Sitting Sitting Respiration 16 Pulse 71 Pulse Oximetry (%) 93 Oxygen Delivery Method room air Intake Visit Reasons: 4 M FU Allergies No Known Allergies Allergy (Verified 02/21/24 13:36) PFSH Medical History Back pain Non-smoker Hx of reduction of nasal fracture HLD (hyperlipidemia) Right hip pain Fatty liver Surgical History Hx of knee surgery H/O vasectomy Family History Father Diabetes Grandfather Cancer Sister Diabetes Grandmother Diabetes Lung cancer Mother Diabetes Arthritis Grandfather Heart disease Social History Smoking Status: Never smoker HPI HPI Details: SUZI SPENCER, is a 43 M who presents to the office today for follow up. PCP OV 3.27.23 for well check noting no cigarette, alcohol or illicit drug use. Notes history of elevated LFT. US RUQ and elastography 4.10.12 hepatic measurement 17cm with fatty infiltration and stiffness 8kPa *BGI established 8..23 for liver abnormality findings. Denies alcoholism, illicit drug use, FH liver disease or blood transfusions. US elastography 12.10.22- Stiffness measures 6 kPa OV 1.- Pt well since last visit. Reports daily RUQ pain persistent, last for 2 to 3 hours gets better with Tums, more persistent for the last 3 months although it was occasional, on and off pain for the last 1 year. Sometimes, wakes him up during the night. Has occasion heartburn. Patient also states occasionally he has watery bowel movement every couple of months for about 1 year. Mother of pancreatic cancer. Is having a BM at least once a day. Lab tests from previous visit reviewed and discussed with patient and her . CT abd/pel w/ contrast 2.05.15- Borderline hepatomegaly with diffuse fatty liver, multiple gallstones EGD 06.20.23- Z-line irregular, medium hiatal hernia, bile duodenitis Pathology- gastric metaplasia, minimal nonspecific chronic inflammation. 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 C/O diarrhea daily but less frequent throughout the day. No heartburn or abdominal pain. Continues multivitamin daily. US abd/ elastography 6.10.13- Liver measures 18.5cm Stiffness 7.2 kPa OV 9..24- Patient well since last visit. About few days ago he had a large pizza at night and then had right quadrant pain severe 7-8/10 intensity similar to gallbladder colic. Continues Pantoprazole. BM normal once a day. 03.12.24 Fib-4 1.06 OV 1.9.25- Patient well since last visit. Was referred to general surgery at last visit for gallbladder but declined surgical intervention. Says he has changed his diet and has been avoiding greasy, high fat foods. Has not had anymore abdominal pain. BM are normal. No other concerns. ROS Const Constitutional: No fatigue, fever(s), weakness or weight change ENT ENT: No difficulty swallowing Resp Respiratory: No shortness of breath or wheezing Cardio Cardiology: No chest pain at rest or dyspnea on exertion Gastro GI: No abdominal pain, belching, bloating, change in bowel habits, change in stool character, coffee ground emesis, constipation, cramping, diarrhea, heartburn, difficulty swallowing, feeling full early, excessive flatus, incontinent (more content not included)... Normal [facility] Hemoglobin A1con 04-30-2024 HbA1c (Bld) [Mass fraction] 5.9 % High 3.8-5.6 [facility] Comment on above: Result Comment: Norm al < 5.7 % Prediabetic 5.7 - 6.4 % Diabetic >or= 6.5 % Please note range changes. Performed By: #### L 500.4100, L501.9985, L500.4050, L300.3900, L100.0100, L501.6710, L501.4700 ####[facility] [address] [place], [place], [id number] Lipid Profileon 04-30-2024 Cholesterol [Mass/Vol] 207 mg/dL High 200 [facility] Comment on above: Result Comment: <200 mg/dL Desirable 200-240 mg/dL Borderline >240 mg/dL High Risk Performed By: #### L 500.4100, L501.9985, L500.4050, L300.3900, L100.0100, L501.6710, L501.4700 ####[facility] [address] [place], [place], [id number] Cholesterol in HDL [Mass/Vol] 37 mg/dL Low [facility] Comment on above: Result Comment: The drugs N-Acetylcysteine and Metamizole may falsely depress this assay. Reference Range HDL <40 mg/dL Low HDL Cholesterol HDL >or= 60 mg/dL High HDL Cholesterol Performed By: #### L 500.4100, L501.9985, L500.4050, L300.3900, L100.0100, L501.6710, L501.4700 ####[facility] [address] [place], [place], [phone] Cholesterol in LDL [Mass/Vol] 146 mg/dL High 0-130 [facility] Comment on above: Performed By: #### L 500.4100, L501.9985, L500.4050, L300.3900, L100.0100, L501.6710, L501.4700 ####[facility] [address] [place], [place], [phone] Cholesterol in VLDL [Mass/Vol] 24 mg/dL Normal 5-40 [facility] Comment on above: Performed By: #### L 500.4100, L501.9985, L500.4050, L300.3900, L100.0100, L501.6710, L501.4700 ####[facility] [address] [place], [place], [phone] Triglyceride [Mass/Vol] 118 mg/dL Normal [facility] Comment on above: Result Comment: The drugs N-Acetylcysteine and Metamizole may falsely depress this assay. Serum Triglycerides Reference Interval Normal <150 mg/dL Borderline high 150 - 199 mg/dL High 200 - 499 mg/dL Very High > or = 500 mg/dL Performed By: #### L 500.4100, L501.9985, L500.4050, L300.3900, L100.0100, L501.6710, L501.4700 ####[facility] [address] [place], [address] Prothrombin Time w/INRon INR Coag (PPP) [Relative time] 1.0 {INR} Normal [facility] Comment on above: Performed By: #### L 500.4100, L501.9985, L500.4050, L300.3900, L100.0100, L501.6710, L501.4700 ####[facility] [address] [place], [place], [phone] PT Coag (PPP) [Time] 13.1 s Normal 11.7-14.9 [facility] Comment on above: Performed By: #### L 500.4100, L501.9985, L500.4050, L300.3900, L100.0100, L501.6710, L501.4700 ####[facility] [address] [place], [address] L501.5101on 03-13-2024 GGTP 24 IU/L Normal 0-65 [facility] Comment on above: Order Comment: Order Date: 01/16/24Order Info: 2324-2 - GGTP Result Comment: Perf ormed at: [facility] [address] [id number] Dog Handler Or Trainer: Fred Barrera PhD, Phone: [phone] Performed By: #### L 500.4050, L506.1000, L100.0500, L501.5101, L501.1400 ####[facility] [address] [place], [address] CBC-Complete Blood Cnt No Di ffon 03-12-2024 Erythrocyte distribution width (RBC) [Ratio] 13.0 % Normal 11.6-14.6 [facility] Comment on above: Order Comment: Order Date: 01/16/24 Order Info: 14513-7 - CBC Performed By: #### L 500.4050, L506.1000, L100.0500, L501.5101, L501.1400 #### [facility] [address] [place], [address] Hematocrit (Bld) [Volume fraction] 45.8 % Normal 40-54 [facility] Comment on above: Order Comment: Order Date: 01/16/24 Order Info: 87568-6 - CBC Performed By: #### L 500.4050, L506.1000, L100.0500, L501.5101, L501.1400 #### [facility] [address] [place], [address] Hemoglobin (Bld) [Mass/Vol] 15.4 g/dL Normal 13.0-16.5 [facility] Comment on above: Order Comment: Order Date: 01/16/24 Order Info: 13509-3 - CBC Performed By: #### L 500.4050, L506.1000, L100.0500, L501.5101, L501.1400 #### [facility] [address] [place], [address] MCH (RBC) [Entitic mass] 28.9 pg Normal 27.0-32.0 [facility] Comment on above: Order Comment: Order Date: 01/16/24 Order Info: [id number] - CBC Performed By: #### L 500.4050, L506.1000, L100.0500, L501.5101, L501.1400 #### [facility] [address] [place], [address] MCHC (RBC) [Mass/Vol] 33.6 g/dL Normal 32-36 [facility] Comment on above: Order Comment: Order Date: 01/16/24 Order Info: [id number] - CBC Performed By: #### L 500.4050, L506.1000, L100.0500, L501.5101, L501.1400 #### [facility] [address] [place], [address] MCV (RBC) [Entitic vol] 85.9 fL Normal 80-94 [facility] Comment on above: Order Comment: Order Date: 01/16/24 Order Info: [id number] - CBC Performed By: #### L 500.4050, L506.1000, L100.0500, L501.5101, L501.1400 #### [facility] [address] [place], [address] Platelet mean volume (Bld) [Entitic vol] 11.0 fL Normal 6.2-12.0 [facility] Comment on above: Order Comment: Order Date: 01/16/24 Order Info: 14994-3 - CBC Performed By: #### L 500.4050, L506.1000, L100.0500, L501.5101, L501.1400 #### [facility] [address] [place], [address] Platelets (Bld) [#/Vol] 265 10*3/uL Normal 150-450 [facility] Comment on above: Order Comment: Order Date: 01/16/24 Order Info: [id number] - CBC Performed By: #### L 500.4050, L506.1000, L100.0500, L501.5101, L501.1400 #### [facility] [address] [place], [address] RBC (Bld) [#/Vol] 5.33 10*6/uL Normal 4.6-6.[address] [facility] Comment on above: Order Comment: Order Date: 01/16/24 Order Info: 45573-4 - CBC Performed By: #### L 500.4050, L506.1000, L100.0500, L501.5101, L501.1400 #### [facility] [address] [place], [address] RDW SD 40.0 fl Normal 35.1-43.9 [facility] Comment on above: Order Comment: Order Date: 01/16/24 Order Info: [id number] - CBC Performed By: #### L 500.4050, L506.1000, L100.0500, L501.5101, L501.1400 #### [facility] [address] [place], [address] WBC (Bld) [#/Vol] 8.9 10*3/uL Normal 4.4-11.0 [facility] Comment on above: Order Comment: Order Date: 01/16/24 Order Info: 94325-8 - CBC Performed By: #### L 500.4050, L506.1000, L100.0500, L501.5101, L501.1400 #### [facility] [address] [place], [address] Comprehensive Metabolic Prof ilon 03-12-2024 Albumin [Mass/Vol] 3.9 g/dL Normal 3.2-5.0 [facility] Comment on above: Order Comment: Order Date: 01/16/24 Order Info: 0786-1 - CMP Order Info: 3083-04 - URIC Performed By: #### L 500.4050, L506.1000, L100.0500, L501.5101, L501.1400 #### [facility] [address] [place], [address] Albumin/Globulin [Mass ratio] 1.1 {ratio} Normal 0.9-2.4 [facility] Comment on above: Order Comment: Order Date: 01/16/24 Order Info: 785-04 - CMP Order Info: 3083-04 - URIC Performed By: #### L 500.4050, L506.1000, L100.0500, L501.5101, L501.1400 #### [facility] [address] [place], [address] ALK P 86 U/L Normal 45-117 [facility] Comment on above: Order Comment: Order Date: 01/16/24 Order Info: 07 - CMP Order Info: 3083-04 - URIC Performed By: #### L 500.4050, L506.1000, L100.0500, L501.5101, L501.1400 #### [facility] [address] [place], [address] ALT [Catalytic activity/Vol] 75 U/L High 16-61 [facility] Comment on above: Order Comment: Order Date: 01/16/24 Order Info: 0786-1 - CMP Order Info: 3083-04 - URIC Performed By: #### L 500.4050, L506.1000, L100.0500, L501.5101, L501.1400 #### [facility] [address] [place], [address] AST [Catalytic activity/Vol] 54 U/L High 15-37 [facility] Comment on above: Order Comment: Order Date: 01/16/24 Order Info: 0786 - CMP Order Info: 3083-04 - URIC Performed By: #### L 500.4050, L506.1000, L100.0500, L501.5101, L501.1400 #### [facility] [address] [place], [address] Bilirubin [Mass/Vol] 0.50 mg/dL Normal 0.20-1.00 [facility] Comment on above: Order Comment: Order Date: 01/16/24 Order Info: 785-04 - CMP Order Info: 3083-04 - URIC Result Comment: For patients on eltrombopag therapy, use of Dimension [place] TBIL is not recommended. Performed By: #### L 500.4050, L506.1000, L100.0500, L501.5101, L501.1400 #### [facility] [address] [place], [address] BUN/CRE 17.1 RATIO Normal 10-20 [facility] Comment on above: Order Comment: Order Date: 01/16/24 Order Info: 0786 - CMP Order Info: 30807-21 - URIC Performed By: #### L 500.4050, L506.1000, L100.0500, L501.5101, L501.1400 #### [facility] [address] [place], [address] CA,Total 8.9 mg/dL Normal 8.5-10.1 [facility] Comment on above: Order Comment: Order Date: 01/16/24 Order Info: 0786- - CMP Order Info: 30807-21 - URIC Performed By: #### L 500.4050, L506.1000, L100.0500, L501.5101, L501.1400 #### [facility] [address] [place], [place], [id number] Chloride [Moles/Vol] 112 mmol/L High 98-107 [facility] Comment on above: Order Comment: Order Date: 01/16/24 Order Info: 785-04 - CMP Order Info: 3083-04 - URIC Performed By: #### L 500.4050, L506.1000, L100.0500, L501.5101, L501.1400 #### [facility] [address] [place], [address] CO2 [Moles/Vol] 26.0 mmol/L Normal 21.0-32.0 [facility] Comment on above: Order Comment: Order Date: 01/16/24 Order Info: 785-04 - CMP Order Info: 3083-04 - URIC Performed By: #### L 500.4050, L506.1000, L100.0500, L501.5101, L501.1400 #### [facility] [address] [place], [address] Creatinine [Mass/Vol] 0.88 mg/dL Normal 0.70-1.30 [facility] Comment on above: Order Comment: Order Date: 01/16/24 Order Info: 785-04 - CMP Order Info: 30807-21 - URIC Result Comment: The validity of the calculated GFR GFRAA in patients over 70 years has not been determined. Clinical correlation is essential. Performed By: #### L 500.4050, L506.1000, L100.0500, L501.5101, L501.1400 #### [facility] [address] [place], [address] EST GFR - AA 120 mL/min Normal >60 [facility] Comment on above: Order Comment: Order Date: 01/16/24 Order Info: 07 - CMP Order Info: 3083-04 - URIC Result Comment: Afri can [place] GFR Calc Performed By: #### L 500.4050, L506.1000, L100.0500, L501.5101, L501.1400 #### [facility] [address] [place], [address] GAP 4 Low 5-15 [facility] Comment on above: Order Comment: Order Date: 01/16/24 Order Info: 0786-1 - CMP Order Info: 30807-21 - URIC Performed By: #### L 500.4050, L506.1000, L100.0500, L501.5101, L501.1400 #### [facility] [address] [place], [address] GFR/1.73 sq M.predicted among non-blacks MDRD (S/P/Bld) [Vol rate/Area] 100 mL/min/{1.73_m2} Normal >60 [facility] Comment on above: Order Comment: Order Date: 01/16/24 Order Info: 0786 - CMP Order Info: 3083-04 - URIC Result Comment: Non- GFR Calc Performed By: #### L 500.4050, L506.1000, L100.0500, L501.5101, L501.1400 #### [facility] [address] [place], [address] Globulin (S) [Mass/Vol] 3.6 g/dL Normal 2.2-4.2 [facility] Comment on above: Order Comment: Order Date: 01/16/24 Order Info: 0786- - CMP Order Info: 30807-21 - URIC Performed By: #### L 500.4050, L506.1000, L100.0500, L501.5101, L501.1400 #### [facility] [address] [place], [address] Glucose [Mass/Vol] 112 mg/dL High 74-106 [facility] Comment on above: Order Comment: Order Date: 01/16/24 Order Info: 0786- - CMP Order Info: 30807-21 - URIC Result Comment: Fast ing Glucose result from 100 to 125 mg/dL suggests IMPAIRED HOMEOSTASIS per A.D.A. criteria. Performed By: #### L 500.4050, L506.1000, L100.0500, L501.5101, L501.1400 #### [facility] [address] [place], [address] Potassium [Moles/Vol] 4.1 mmol/L Normal 3.5-5.1 [facility] Comment on above: Order Comment: Order Date: 01/16/24 Order Info: 86 - CMP Order Info: 3083-04 - URIC Performed By: #### L 500.4050, L506.1000, L100.0500, L501.5101, L501.1400 #### [facility] [address] [place], [address] Sodium [Moles/Vol] 142 mmol/L Normal 136-145 [facility] Comment on above: Order Comment: Order Date: 01/16/24 Order Info: 07 - CMP Order Info: 3083-04 - URIC Performed By: #### L 500.4050, L506.1000, L100.0500, L501.5101, L501.1400 #### [facility] [address] [place], [address] T PROT 7.5 g/dL Normal 6.4-8.2 [facility] Comment on above: Order Comment: Order Date: 01/16/24 Order Info: 07 - CMP Order Info: 3083-04 - URIC Performed By: #### L 500.4050, L506.1000, L100.0500, L501.5101, L501.1400 #### [facility] [address] [place], [address] Urea nitrogen [Mass/Vol] 15 mg/dL Normal 7-18 [facility] Comment on above: Order Comment: Order Date: 01/16/24 Order Info: 0786 - CMP Order Info: 3083-04 - URIC Performed By: #### L 500.4050, L506.1000, L100.0500, L501.5101, L501.1400 #### [facility] [address] [place], [address] Spine Lumbar (Routine)on Spine Lumbar (Routine) [facility] Imaging Services [address] [place] [address] Spine Lumbar (Routine) MR#: [id number] Acct: [id number] Name: SUZI SPENCER Rep #: [id number] : 1980 M 43 From: Alberto Woodard MD PCP: Dr. Prashant Taveras MD Status: REG CLI Study: Spine Lumbar (Routine) Date of Exam: 03/12/24 Exam# [id number] Ordering Dr: Prashant Taveras [id number] STUDY: MRI LUMBAR SPINE WITHOUT CONTRAST REASON FOR EXAM: Male, 43 years old. pain and gt;6 months. into right hip paresthesias TECHNIQUE: Standardized fat and water weighted pulse sequences were obtained in the sagittal and axial planes. COMPARISON: None FINDINGS: T12-L1: Normal endplates. Normal disc height, hydration and morphology. Normal bilateral facet joints. Normal central canal and bilateral lateral recesses. Normal bilateral intervertebral neural foramina. Normal lumbar lordosis. There is no substantial scoliosis. Normal conus medullaris that terminates at the L1/L2. L1-2: Normal endplates. Normal disc height, hydration and morphology. Normal bilateral facet joints. Normal central canal and bilateral lateral recesses. Normal bilateral intervertebral neural foramina. L2-3: Normal endplates. Normal disc height, hydration and morphology. Normal bilateral facet joints. Normal central canal and bilateral lateral recesses. Normal bilateral intervertebral neural foramina. L3-4: Small central disc protrusion produces mild spinal stenosis. No neural foraminal stenosis. L4-5: Mild bilateral facet hypertrophy and moderate ligament flavum hypertrophy. Mild broad disc protrusion produces mild spinal stenosis and mild bilateral neural foraminal stenosis. L5-S1: Mild bilateral facet hypertrophy and ligamentum flavum hypertrophy. 2 mm retrolisthesis of L5 on S1 with a mild broad disc protrusion produces moderate spinal stenosis, moderate right neural foraminal stenosis and severe left neural foraminal stenosis with effacement of left L5 nerve root laterally. Normal visualized sacral ala. Normal visualized paraspinous soft tissue structures. MRI/Spine Lumbar (Routine) IMPRESSION: Multilevel degenerative changes, as described above. Electronically Signed: Alberto Woodard MD at 12:01 EST , CC: Dr. Prashant Taveras MD Tongue Trimmer: Signed Normal [facility] Uric Acidon 03-12-2024 URIC 6.1 mg/dL Normal 3.5-7.2 [facility] Comment on above: Order Comment: Order Date: 01/16/24 Order Info: 0786-1 - CMP Order Info: 3084-1 - URIC Result Comment: The drugs N-Acetylcysteine and Metamizole may falsely depress this assay. Performed By: #### L 500.4050, L506.1000, L100.0500, L501.5101, L501.1400 #### [facility] [address] [place], [place], [id number] Vitamin D,25 Hydroxyon 03-12 Vitamin D 25-OH 37.2 ng/mL Normal [facility] Comment on above: Order Comment: Order Date: 01/16/24 Order Info: 07300-1 - VITD25 Result Comment: Misa min D 25(OH) Status Range Deficiency <20 ng/mL (50nmol/L) Insufficiency 20 - 30 ng/mL (50 - 75 nmol/L) Sufficiency 30 - 100 ng/mL (75 - 250 nmol/L) Toxicity >100 ng/mL (>250 nmol/L) Performed By: #### L 500.4050, L506.1000, L100.0500, L501.5101, L501.1400 #### [facility] [address] [place], [address] Surgery Visit Reporton 02-20 Surgery Visit Report [facility] [address] [place] [address] OFFICE VISIT Date of Service: 02/21/24 MR#: [id number] Acct: [id number] Name: SUZI SPENCER Rep #: [id number] : 1980 Provider: Dr. Salvatore tejada MD Age/Sex: 43/M Location: [facility] Status: Signed Intake Vital Signs 01/01/24 08:25 02/21/24 13:36 Height 5 ft 9 in 5 ft 9 in Weight: 241 lb 244 lb BMI 35.6 36.0 BP 147/91 H 138/80 H Blood Pressure Location Rt brachial Rt brachial Position Sitting Sitting Respiration 16 Pulse 69 Pulse Oximetry (%) 94 Oxygen Delivery Method room air Intake Visit Reasons: GALLBLADDER Chief Complaint: gallbladder Radiation Control Health Physicist Required: No Is patient in pain?: No Allergies No Known Allergies Allergy (Verified 02/21/24 13:36) Medications ???Medication ???Instructions ???Recorded ???Confirmed ???Type multivitamin (Daily Multi-Vitamin 1 tab PO DAILY 06/17/23 02/21/24 History tablet) pantoprazole 40 mg tablet,delayed 40 mg PO .breakfast 1 month #30 08/27/23 02/21/24 Rx release tabs Have you fallen in the past year?: No PFSH Medical History Back pain Non-smoker Hx of reduction of nasal fracture HLD (hyperlipidemia) Right hip pain Fatty liver Surgical History Hx of knee surgery H/O vasectomy Family History Father Diabetes Grandfather Cancer Sister Diabetes Grandmother Diabetes Lung cancer Mother Diabetes Arthritis Grandfather Heart disease Social History Smoking Status: Never smoker HPI HPI HPI: Patient is a 43-year-old male here for gallstones. Patient currently says he changed his diet and he is not having any symptoms. He came here because he had 3 attacks in the middle of the night over the course of several months. He has not had one in a few weeks. He says that he is controlling them with improving his diet. ROS General General: No weight change, appetite, fatigue, colon cancer, breast cancer or weakness HEENT HEENT: No difficulty swallowing, eye injury, eye surgery, swollen glands or hoarseness Endo Endocrine: No thyroid disease, diabetes mellitus, thyroid cancer, Hair loss, heat intolerance or cold intolerance Skin Skin: No rash or changing moles Breast Breast: No left breast lump, right breast lump, nipple discharge, breast pain, abnormal mammogram, abnormal US or breast enlargement Musc Musculoskeletal: Yes back problems and gout; No arthritis, rheumatoid arthritis or joint pain Cardio Cardiovascular: No murmur, pacemaker, heart disease, atrial fibrillation, high blood pressure, heart attack, heart stent, palpitations, shortness of breat with exertion or chest pain Psych Psychiatric: No depression, anxiety or hearing voices Resp Respiratory: No shortness of breath, No sleep apnea, No cough, No COPD, No asthma, No emphysema and No wheezing Gastro Gastrointestinal: No abdominal pain, No nausea or vomiting, No diarrhea, No constipation, No blood in stool, No acid reflux, No hemorrhoids, No ulcers, Yes gallbladder problem and No black,tarry stools Oneal Hematologic: No blood thinners, No blood disorders, No bleeding, No anemia and No blood clots Neuro Neurologic: No system reviewed and no additional complaints, except as documented, No as per HPI, No abnormal gait, No abnormal hearing, No abnormal movements, No abnormal speech, No behavioral changes, No burning sensations, No confusion, No convulsions, No disequilibrium, No dizziness, No localized weakness, No frequent falls, No headache(s), No lack of coordination, No loss of vision, No memory loss, Yes numbness, No other visual disturbances, No radicular pain, No restless legs, No sensory deficit, No syncope, Yes tingling, No tremor(s), No weakness and No other Exam Const General: cooperative Orientation: alert and oriented x3 HENMT Head: normal to inspection Neck Neck: normal visual inspection and full ROM Chest Chest palpation inspection: normal inspection of the chest Resp Effort Inspection: normal respiratory effort Auscultation: clear to auscultation bilaterally Cardio Rate: regular rate Rhythm: regular rhythm GI Inspection: non-distended Palpation: soft and nontender Skin General: no rashes or lesions noted Neuro General: patient alert and patient oriented x3 Extrem General: full ROM Psych Appearance: grossly normal Mental Status: mental status grossly normal Assessment and Plan Assessment and Plan (1) Cholelithiasis: Status: Acute Plan: The patient has cholelithiasis on ultrasound and I reviewed the images with him. The p (more content not included)... Normal [facility] Hepatobilliary Img w/Pharm I nton 01-30-2024 Hepatobilliary Img w/Pharm Int [facility] Imaging Services [address] [place] [address] Hepatobilliary Img w/Pharm Int MR#: [id number] Acct: [id number] Name: SUZI SPENCER Rep #: [id number] : 1980 M 43 From: Alberto Barton PCP: Dr. Prashant Taveras MD Status: REG CLI Study: Hepatobilliary Img w/Pharm Int Date of Exam: Exam# [id number] Ordering Dr: [place] [id number] CLINICAL: 43-year-old male with history of right upper quadrant abdominal pain. RADIONUCLIDE HEPATOBILIARY SCINTIGRAPHY COMPARISON: Abdominal ultrasound report 09/26/2023 FINDINGS: Following the intravenous administration of 5.9 mCi of 99m Tc Mebrofenin, hepatobiliary images reveal: 1. Relatively prompt and homogeneous radiopharmaceutical concentration is noted by a normal sized liver. No parenchymal defects are identified. 2. Gallbladder activity is identified at 30 minutes post radiopharmaceutical administration. 3. Small intestinal tract is observed at 10 minutes following tracer injection. 4. Washout of the radiopharmaceutical by the hepatic parenchyma appears qualitatively normal. Cholecystokinin (0.02 ug/kg) was administered intravenously over a 30-minute period. The post CCK gallbladder ejection fraction calculated at 21 minutes following Cholecystokinin administration was noted to be 76.0 % (normal greater than 35%). During 30 minutes of post CCK imaging, there is no scintigraphic evidence of reflux of the radiotracer into the common hepatic duct or refilling of the gallbladder. NM/Hepatobilliary Img w/Pharm Int IMPRESSION: 1. NORMAL 99m Tc Mebrofenin hepatobiliary imaging examination with Cholecystokinin. A. A gallbladder ejection fraction calculated to be greater than 35% following the administration of Cholecystokinin makes the probability of functional hepatobiliary disease (gallbladder and/or sphincter of Oddi dyskinesia) and/or organic hepatobiliary disease (chronic acalculous cholecystitis and/or cystic duct syndrome) to be low. (Eloisa Richards et al, Journal of Nuclear Medicine 32:1695, 1991). Electronically Signed: Alberto Temple DO at 18:35 EDT Reading Location ID and State: [facility] / [place] Tel , Service support , CC: Dr. Prashant Taveras MD; Dr. John Brand MD Tongue Trimmer: Signed [facility] Gastroenterology Visit Repor ton 01-01-2024 Gastroenterology Visit Report [facility] Gastroenterology [address] [place] [address] OFFICE VISIT Date of Service: 01/01/24 MR#: [id number] Acct: [id number] Name: SUZI SPENCER Rep #: [id number] : 1980 Provider: Dr. John kinney MD Age/Sex: 43/M Location: [facility] Status: Signed Intake Vital Signs 06/20/23 06:56 01/01/24 08:25 Height 5 ft 9 in 5 ft 9 in Weight: 241 lb BMI 35.6 BP 147/91 H Blood Pressure Location Rt brachial Position Sitting Pulse 69 Pulse Oximetry (%) 94 Oxygen Delivery Method room air Intake Visit Reasons: 4 M FU Allergies No Known Allergies Allergy (Verified 01/01/24 08:26) Medications ???Medication ???Instructions ???Recorded ???Confirmed ???Type multivitamin (Daily Multi-Vitamin 1 tab PO DAILY 06/17/23 01/01/24 History tablet) pantoprazole 40 mg tablet,delayed 40 mg PO .breakfast 1 month #30 08/27/23 01/01/24 Rx release tabs PFSH Medical History Back pain Non-smoker Hx of reduction of nasal fracture HLD (hyperlipidemia) Right hip pain Fatty liver Surgical History Hx of knee surgery H/O vasectomy Family History Father Diabetes Grandfather Cancer Sister Diabetes Grandmother Diabetes Lung cancer Mother Diabetes Arthritis Grandfather Heart disease Social History Smoking Status: Never smoker HPI HPI Details: SUZI SPENCER, is a 43 M who presents to the office today for follow up. PCP OV 3..23 for wellcheck noting no cigarette, alcohol or illicit drug use. Notes history of elevated LFT. Biochemical .23 CMP, uric acid, triglycerides, lipids without pertinent abnormality. AST H64-ALT H85-AP 84 US RUQ and elastography 4.6.23 hepatic measurement 17cm with fatty infiltration and stiffness 8kPa *BGI established 8.4.23 for liver abnormality findings. Denies alcoholism, illicit drug use, FH liver disease or blood transfusions. US elastography 8..- Stiffness measures 6 kPa OV 1.19.24- Pt well since last visit. Reports daily RUQ pain persistent, last for 2 to 3 hours gets better with Tums, more persistent for the last 3 months although it was occasional, on and off pain for the last 1 year. Sometimes, wakes him up during the night. Has occasion heartburn. Patient also states occasionally he has watery bowel movement every couple of months for about 1 year. Mother of pancreatic cancer. Is having a BM at least once a day. Lab tests from previous visit reviewed and discussed with patient and her . CT abd/pel w/ contrast 2.05.15- Borderline hepatomegaly with diffuse fatty liver, multiple gallstones EGD 06.20.23- Z-line irregular, medium hiatal hernia, bile duodenitis Pathology- gastric metaplasia, minimal nonspecific chronic inflammation. 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 C/O diarrhea daily but less frequent throughout the day. No heartburn or abdominal pain. Continues multivitamin daily. US abd/ elastography .24- Liver measures 18.5cm Stiffness 7.2 kPa OV 9.24- Patient well since last visit. About few days ago he had a large pizza at night and then had right quadrant pain severe 7-8/10 intensity similar to gallbladder colic. Continues Pantoprazole. BM normal once a day. ROS Const Constitutional: No fatigue, fever(s), weakness or weight change ENT ENT: No difficulty swallowing Resp Respiratory: No shortness of breath or wheezing Cardio Cardiology: No chest pain at rest or dyspnea on exertion Gastro GI: No abdominal pain, belching, bloating, change in bowel habits, change in stool character, coffee ground emesis, constipation, cramping, diarrhea, heartburn, difficulty swallowing, feeling full early, excessive flatus, incontinent of stools, Vomiting blood/hematemesis, Blood in stool, loose stools, Black,tarry stools, nausea/dyspepsia, pain with swallowing, vomiting or other Genitourinary Male: No difficulty urinating or burning urination Musc Musculoskeletal: Positive for back pain and sciatica; No joint pain Skin Skin: No yellowing of the eye or itchy eyes Neuro Neurology: No abnormal movements, behavioral changes, weakness or lack of coordination Psych Psychiatric: No anxiety, No behavioral changes and No depression Endo Endocrine: No fatigue or weight change Aller/Imm Allergy/Immunologic: No itchy eyes or wheezing Oneal/Lymp Hematologic/Lymphatic: No easy bleeding or easy bruising Exam Const General: cooperative, no acute distress and well developed Nutritional (more content not included)... [facility] ABD Limited w/ Elastographyo n 09-26-2023 ABD Limited w/ Elastography [facility] Imaging Services [address] [address] ABD Limited w/ Elastography MR#: [id number] Acct: [id number] Name: SUZI SPENCER CHEN Rep #: [id number] : 1980 M 43 From: Juan pope MD PCP: Dr. Prashant Taveras MD Status: REG CLI Study: ABD Limited w/ Elastography Date of Exam: 10/13 Exam# [id number] Ordering [place]: [place] [id number] STUDY: ABDOMINAL ULTRASOUND - RIGHT UPPER QUADRANT; ELASTOGRAPHY REASON FOR VISIT: Male, 43 years old. Right upper quadrant pain. NAFLD. TECHNIQUE: Ultrasound evaluation of the right upper quadrant was performed with real-time and static sunshine-scale imaging. Point quantification shear wave elastography was performed (Kazeon). TECHNICAL QUALITY: Limited. Examination limited due to a combination of factors including obesity and bowel gas. COMPARISON: Comparison is made with prior study July 26, 2022. FINDINGS: Liver: The liver is mildly enlarged and measures 18.5 cm. There is increased echogenicity consistent with fatty infiltration. The bile ducts are within normal limits. There is hepatic color flow. The direction of portal flow is hepatopetal. There is no demonstrated mass lesion. Focal area of decrease echotexture in the gallbladder fossa suggestive of focal fatty sparing. Median liver stiffness measured 7.2 kPa. Gallbladder: Normal distended gallbladder. The gallbladder wall measures 2.1 mm. There is a negative sonographic Kolb''s sign. There is no pericholecystic fluid. There are multiple echogenic structures within the gallbladder, consistent with multiple gallstones. Common Bile Duct (C.B.D.): The common bile duct measures 4.3 mm. Pancreas: There is normal echogenicity of the visualized pancreas. There is no demonstrated pancreatic mass or cyst. Right Kidney: Normal size of the right kidney. The right kidney measures 11.8 cm x 5.5 cm x 6.1 cm. Normal renal cortex. The right cortex measures 1.3 cm. There is no demonstrated renal mass or cyst. There is no right hydronephrosis. US/ABD Limited w/ Elastography IMPRESSION: 1. Liver stiffness measures 7.2 kPa compatible with F2-F3 (Mild to moderate liver fibrosis) Metavir score. 2. Mild hepatomegaly and fatty infiltration of the liver. 3. Multiple gallstones. Electronically Signed: Juan Morrell MD at 8:59 EDT , CC: Dr. Prashant Taveras MD; Dr. John Brand MD Tongue Trimmer: Signed [facility] Basophil percentageOrdered B y: John Brand on 05-23-2023 Bilirubin [Mass/Vol] 0.40 mg/dL 0.20-1.00 [facility] Comment on above: For patients on eltr ombopag therapy, use of Dimension [place] TBIL is not recommended. Chloride [Moles/Vol] 108 mmol/L 98-107 [facility] Glucose [Mass/Vol] 100 mg/dL 74-106 [facility] Comment on above: Fasting Glucose resu lt from 100 to 125 mg/dL suggests IMPAIRED HOMEOSTASIS per A.D.A. criteria. Potassium [Moles/Vol] 3.8 mmol/L 3.5-5.1 [facility] Protein [Mass/Vol] 8.0 g/dL 6.4-8.2 [facility] Sodium [Moles/Vol] 137 mmol/L 136-145 [facility] International normalized rat io (INR) calculationOrdered By: John Brand on 05-23-2023 INR Coag (PPP) [Relative time] 0.9 {INR} [facility] - Chemistry and C hemistry - challengeOrdered By: John Brand on 05-23-2023 Albumin/Globulin [Mass ratio] 1.1 {ratio} 0.9-2.4 [facility] ALP [Catalytic activity/Vol] 82 U/L 45-117 [facility] ALT [Catalytic activity/Vol] 72 U/L 16-61 [facility] CO2 [Moles/Vol] 28.0 mmol/L 21.0-32.0 [facility] Globulin (S) [Mass/Vol] 3.9 g/dL 2.2-4.2 [facility] Urea nitrogen/Creatinine [Mass ratio] 14.2 mg/mg 10-20 [facility] - CoagulationOrde red By: John Brand on 05-23-2023 PT Coag (PPP) [Time] 12.5 s 11.7-14.9 [facility] No Panel InformationOrdered By: John Brand on 05-23-2023 C-Reactive Protein Extended Range < 2.90 mg/L 0.0-3.0 [facility] Comment on above: C-Reactive Protein ( CRP) provides useful information for thediagnosis, therapy and monitoring of inflammatory processesand associated diseases. For the evaluation of Relative Riskfor Cardiovascular Disease, a High Sensitivity CRP (HSCRP)should be ordered. CA 19-9 Antigen 18 U/mL 0-35 [facility] Comment on above: [facility] El ectrochemiluminescence Immunoassay(ECLIA)Values obtained with different assay methods or kits cannotbe used interchangeably. Results cannot be interpreted asabsolute evidence of the presence or absence of malignantdisease.Performed at: [facility] [id number] Director: Fred Barrera PhD, Phone: [phone] Estimated GFR (MDRD) Amer 126 mL/min >60 [facility] Comment on above: GFR Calc Estimated GFR (MDRD) Non-Af Amer 105 mL/min >60 [facility] Comment on above: Non- GFR Calc Serum or plasma calcium alex urement (mass/volume)Ordered By: John Brand on 05-23-2023 Calcium [Mass/Vol] 9.3 mg/dL 8.5-10.1 [facility] Serum or plasma creatinine m easurement (mass/volume)Ordered By: John Brand on 05-23-2023 Creatinine [Mass/Vol] 0.84 mg/dL 0.70-1.30 [facility] Comment on above: The validity of the calculated GFR & GFRAA in patients over 70 years has not been determined. Clinical correlation is essential. Serum or plasma urea nitroge n measurement (mass/volume)Ordered By: John Brand on 05-23-2023 Urea nitrogen [Mass/Vol] 12 mg/dL 7-18 [facility] Thin prep Papanicolaou smear with manual screeningOrdered By: John Brand on 05-23-2023 Thin prep Papanicolaou smear with manual screening 4.1 g/dL 3.2-5.0 [facility] Thin prep Papanicolaou smear with manual screening 44 U/L 15-37 [facility] Thin prep Papanicolaou smear with manual screening 1 5-15 [facility] Absolute lymphocyte countOrd ered By: Seth Alvarado on 11-23-2022 Lymphocytes Auto (Unsp spec) [#/Vol] 2.90 10*3/uL 0.83-4.51 [facility] Albumin Elph [Mass/Vol]Order ed By: Seth Alvarado on 11-23-2022 Albumin [Mass/Vol] 4.0 g/dL 2.9-4.4 [facility] Aldolase ser/plasOrdered By: Seth Alvarado on 11-23-2022 Aldolase [Catalytic activity/Vol] 4.1 mU/mL 3.3-10.3 [facility] Comment on above: Performed at: [facility] [place] [id number] Director: Fred Barrera PhD, Phone: [phone] at: [facility] [id number] Director: Rohit Herndon MD, Phone: [phone] Atypical perinuclear antineu trophil cytoplasmic antibodies measurementOrdered By: Seth Alvarado on 11-23-2022 Neutrophil cytoplasmic Ab.perinuclear.atypical IF (S) [Titer] <1:20 titer Neg:<1:20 [facility] Comment on above: The atypical pANCA p attern has been observed in asignificant percentage of patients with ulcerative colitis,primary sclerosing cholangitis and autoimmune hepatitis. Basophil percentageOrdered B y: Seth Alvarado on 11-23-2022 Ammonia (P) [Moles/Vol] 16.0 umol/L 11-32 [facility] Basophil percentage < 0.2 AI 0.0-0.[address] [facility] Basophils/100 WBC (Bld) 0.9 % 0-1 [facility] Bilirubin [Mass/Vol] 0.50 mg/dL 0.20-1.00 [facility] Comment on above: For patients on eltr ombopag therapy, use of Dimension [place] TBIL is not recommended. Chloride [Moles/Vol] 109 mmol/L 98-107 [facility] Eosinophils/100 WBC (Bld) 0.8 % 0-5 [facility] Glucose [Mass/Vol] 113 mg/dL 74-106 [facility] Comment on above: Fasting Glucose resu lt from 100 to 125 mg/dL suggests IMPAIRED HOMEOSTASIS per A.D.A. criteria. LDH [Catalytic activity/Vol] 182 U/L 87-241 [facility] Neutrophils (Bld) [#/Vol] 4.8 10*3/uL 2.0-7.7 [facility] Neutrophils/100 WBC (Bld) 53.8 % 47-70 [facility] Potassium [Moles/Vol] 4.1 mmol/L 3.5-5.1 [facility] Protein [Mass/Vol] 7.9 g/dL 6.4-8.2 [facility] Sodium [Moles/Vol] 141 mmol/L 136-145 [facility] WBC (Bld) [#/Vol] 8.9 10*3/uL 4.4-11.0 [facility] Blood erythrocytes count (nu mber/volume)Ordered By: Seth Alvarado on 11-23-2022 RBC (Bld) [#/Vol] 5.44 10*6/uL 4.6-6.[address] [facility] Blood hemoglobin measurement (mass/volume)Ordered By: Seth Alvarado on 11-23-2022 Hemoglobin (Bld) [Mass/Vol] 15.7 g/dL 13.0-16.5 [facility] Blood lymphocytes/100 leukoc ytesOrdered By: Seth Alvarado on 11-23-2022 Lymphocytes/100 WBC (Bld) 32.4 % 19-41 [facility] Blood monocytes/100 leukocyt esOrdered By: Seth Alvarado on 11-23-2022 Monocytes/100 WBC (Bld) 11.9 % 0-10 [facility] Blood platelet mean volumeOr dered By: Seth Alvarado on 11-23-2022 Platelet mean volume (Bld) [Entitic vol] 10.6 fL 6.2-12.0 [facility] Determination of erythrocyte mean corpuscular volume (MCV)Ordered By: Seth Alvarado on 11-23-2022 MCV (RBC) [Entitic vol] 86.4 fL 80-94 [facility] Erythrocyte sedimentation ra teOrdered By: Seth Alvarado on 11-23-2022 ESR (Bld) [Velocity] 7 mm/h 0-20 [facility] HIV 1 and HIV-2 antibody ass ay with HIV-1 p24 antigen detectionOrdered By: Seth Alvarado on 11-23-2022 HIV 1+2 Ab+HIV1 p24 Ag IA Ql Non-Reactive Nonreactive [facility] Hematocrit Auto (Bld) [Volum e fraction]Ordered By: Seth Alvarado on 11-23-2022 Hematocrit (Bld) [Volume fraction] 47.0 % 40-54 [facility] Hemoglobin in reticulocytes (mass per reticulocyte)Ordered By: Seth Alvarado on 11-23-2022 Hemoglobin (Reticulocytes) [Entitic mass] 32.7 pg 30-35 [facility] INR in Blood by Coagulation assayOrdered By: Seth Alvarado on 11-23-2022 INR Coag (Bld) [Relative time] 1.0 {INR} [facility] Interpretation of serum or p lasma protein pattern by immunofixation (narrative resultOrdered By: Seth Alvarado on 11-23-2022 Protein Fractions Immunofixation Armin [Interp] See comment [facility] Comment on above: NOT OBSERVED Iron measurement (mass/mass) Ordered By: Seth Alvarado on 11-23-2022 Iron (Unsp spec) [Mass/Mass] 79 ug/dL 65-175 [facility] - Chemistry and C hemistry - challengeOrdered By: Seth Alvarado on 11-23-2022 ALP [Catalytic activity/Vol] 86 U/L 45-117 [facility] ALT [Catalytic activity/Vol] 68 U/L 16-61 [facility] Amylase [Catalytic activity/Vol] 27 U/L 15-85 [facility] CK [Catalytic activity/Vol] 279 U/L 39-308 [facility] CO2 [Moles/Vol] 29.0 mmol/L 21.0-32.0 [facility] Globulin (S) [Mass/Vol] 4.0 g/dL 2.2-4.2 [facility] Urea nitrogen/Creatinine [Mass ratio] 12.9 mg/mg 10-20 [facility] - CoagulationOrde red By: Seth Alvarado on 11-23-2022 PT Coag (PPP) [Time] 13.0 s 11.7-14.9 [facility] Laboratory - Hematology and Cell countsOrdered By: Seth Alvarado on 11-23-2022 Erythrocyte distribution width (RBC) [Entitic vol] 41.4 fL 35.1-43.9 [facility] Erythrocyte distribution width (RBC) [Ratio] 13.2 % 11.6-14.6 [facility] Immature granulocytes/100 WBC (Bld) 0.200 % 0.0-0.9 [facility] Comment on above: IG% - Immature Granu locytes (promyelocytes, myelocytes and metamyelocytes) > 1% indicates that a LEFT SHIFT is Present. MCH (RBC) [Entitic mass] 28.9 pg 27.0-32.0 [facility] Nucleated RBC/100 WBC (Bld) [Ratio] 0 % 0-5 [facility] MCHC Auto (RBC) [Mass/Vol]Or dered By: Seth Alvarado on 11-23-2022 MCHC (RBC) [Mass/Vol] 33.4 g/dL 32-36 [facility] No Panel InformationOrdered By: Seth Alvarado on 11-23-2022 Addendum Document Comment . [facility] Comment on above: Protein electrophore sis scan will follow via computer,mail, or lithograph press operator tinware delivery. Anti-Gliadin IgA Antibody 7 units 0-19 [facility] Comment on above: Negative 0 - 19 Weak Positive 20 - 30 Moderate to Strong Positive >30 Anti-Gliadin IgG Antibody 3 units 0-19 [facility] Comment on above: Negative 0 - 19 Weak Positive 20 - 30 Moderate to Strong Positive >30 Centromere B Antibody <0.2 AI 0.0-0.9 [facility] Ceruloplasmin 21.7 mg/dL 16.0-31.0 [facility] Endomysial IgA Antibody Negative Negative [facility] Estimated GFR (MDRD) Amer 113 mL/min >60 [facility] Comment on above: GFR Calc Estimated GFR (MDRD) Non-Af Amer 94 mL/min >60 [facility] Comment on above: Non- GFR Calc Haptoglobin 127 mg/dL 23-355 [facility] Hepatitis A IgM Antibody Negative Negative [facility] Hepatitis B Core IgM Antibody Negative Negative [facility] Hepatitis C Antibody (EIA) Non-Reactive Non Reactive [facility] Hepatitis C Antibody Comment Comment . [facility] Comment on above: Not infected with HC V unless early or acute infection issuspected (which may be delayed in an immunocompromisedindividual), or other evidence exists to indicate HCVinfection. Immature Reticulocyte Fraction 6.40 % 3.00-15.90 [facility] Reticulocyte Count 1.02 % 0.5-1.5 [facility] ELECTRONICS TEACHER Antibody <0.2 AI 0.0-0.9 [facility] Tissue Transglutaminase IgG Ab <2 U/mL 0-5 [facility] Comment on above: Negative 0 - 5 Weak Positive 6 - 9 Positive >9 Total Iron Binding Capacity 340 ug/dL 250-450 [facility] No Panel InformationOrdered By: Landen Taveras on 11-23-2022 Thyroid Stimulating Hormone (TSH) 0.80 uIU/mL 0.358-3.74 [facility] Platelets bldOrdered By: Quang fam Friend on 11-23-2022 Platelets (Bld) [#/Vol] 268 10*3/uL 150-450 [facility] Qualitative QuantiFERON-TB g old in tube testOrdered By: Seth Alvarado on 11-23-2022 M. tuberculosis tuberculin stim IFN-g Ql (Bld) 0.04 IU/mL . [facility] Serum DNA double strand anti body assay (units/volume)Ordered By: Seth Alvarado on 11-23-2022 DNA double strand Ab Qn (S) [IU]/mL 0-9 [facility] Comment on above: Negative <5 Equivoca l 5 - 9 Positive >9 Serum Misa Brower virus cap zoey IgG antibody assay (units/volume)Ordered By: Seth Alvarado on 11-23-2022 EBV capsid IgG Qn (S) 268.0 [arb'U]/mL 0.0-17.9 [facility] Comment on above: Negative <18.0 Equiv ocal 18.0 - 21.9 Positive >21.9 Serum Misa Brower virus cap zoey IgM antibody assay (units/volume)Ordered By: Seth Alvarado on 11-23-2022 EBV capsid IgM Qn (S) [arb'U]/mL 0.0-35.9 [facility] Comment on above: Negative <36.0 Equiv ocal 36.0 - 43.9 Positive >43.9 Serum Misa Brower virus nuc lear IgG antibody assay (units/volume)Ordered By: Seth Alvarado on 11-23-2022 EBV nuclear IgG Qn (S) > 600.0 U/mL 0.0-17.9 [facility] Comment on above: Negative <18.0 Equiv ocal 18.0 - 21.9 Positive >21.9 Serum Blanca-1 antibody assay (u nits/volume)Ordered By: Seth Alvarado on 11-23-2022 Blanca-1 extractable nuclear Ab Qn (S) <0.2 AI 0.0-0.9 [facility] Serum Scl-70 extractable nuc lear antibody assay (units/volume)Ordered By: Seth Alvarado on 11-23-2022 SCL-70 extractable nuclear Ab Qn (S) <0.2 AI 0.0-0.9 [facility] Serum Wade extractable nucl ear antibody detectionOrdered By: Seth Alvarado on 11-23-2022 Wade extractable nuclear Ab Ql (S) <0.2 AI 0.0-0.9 [facility] Serum [id number] measu rement by electrophoresisOrdered By: Seth Alvarado on 11-23-2022 Alpha 1 globulin Elph [Mass/Vol] 0.2 g/dL 0.0-0.4 [facility] Alpha 1 globulin Elph [Mass/Vol] 0.7 g/dL 0.4-1.0 [facility] Serum classic neutrophil cyt oplasmic antibody assay (units/volume)Ordered By: Seth Alvarado on 11-23-2022 Neutrophil cytoplasmic Ab.classic Qn (S) <1:20 titer Neg:<1:20 [facility] Serum globulin measurement ( mass/volume)Ordered By: Seth Alvarado on 11-23-2022 Globulin (S) [Mass/Vol] 3.2 g/dL 2.2-3.9 [facility] Serum mitochondria antibody detectionOrdered By: Seth Alvarado on 11-23-2022 Mitochondria Ab Ql (S) <20.0 Units 0.0-20.0 [facility] Comment on above: Negative 0.0 - 20.0 Equivocal 20.1 - 24.9 Positive >24.9Mitochondrial (M2) Antibodies are found in 90-96% ofpatients with primary biliary cirrhosis.Performed at: [place] [id number] Director: Fred Barrera PhD, Phone: [phone] Serum or plasma C reactive p rotein measurement (mass/volume)Ordered By: Seth Alvarado on 11-23-2022 CRP [Mass/Vol] mg/L 0.0-3.0 [facility] Comment on above: C-Reactive Protein ( CRP) provides useful information for thediagnosis, therapy and monitoring of inflammatory processesand associated diseases. For the evaluation of Relative Riskfor Cardiovascular Disease, a High Sensitivity CRP (HSCRP)should be ordered. Serum or plasma IgA measurem ent (mass/volume)Ordered By: Seth Alvarado on 11-23-2022 IgA [Mass/Vol] 233 mg/dL 90-386 [facility] Serum or plasma IgG measurem ent (mass/volume)Ordered By: Seth Alvarado on 11-23-2022 IgG [Mass/Vol] 1286 mg/dL 603-1613 [facility] Serum or plasma IgM measurem ent (mass/volume)Ordered By: Seth Alvarado on 11-23-2022 IgM [Mass/Vol] 73 mg/dL 20-172 [facility] Serum or plasma actin IgG an tibody assay (units/volume)Ordered By: Seth Alvarado on 11-23-2022 Actin IgG Qn 8 Units 0-19 [facility] Comment on above: Negative 0 - 19 Weak positive 20 - 30 Moderate to strong positive >30 Actin Antibodies are found in 52-85% of patients with autoimmune hepatitis or chronic active hepatitis and in 22% of patients with primary biliary cirrhosis. Serum or plasma albumin alex urement (mass/volume)Ordered By: Seth Alvarado on 11-23-2022 Albumin [Mass/Vol] 3.9 g/dL 3.2-5.0 [facility] Serum or plasma albumin/glob ulin mass ratioOrdered By: Seth Alvarado on 11-23-2022 Albumin/Globulin [Mass ratio] 1.0 {ratio} 0.9-2.4 [facility] Serum or plasma [id number]-[id number] protein tumor marker measurement (units/volume)Ordered By: Seth Alvaardo on 11-23-2022 AFP.tumor marker Qn < 1.8 ng/mL 0.0-6.9 [facility] Comment on above: [employer] El ectrochemiluminescence Immunoassay(ECLIA)Values obtained with different assay methods or kits cannotbe used interchangeably. Results cannot be interpreted asabsolute evidence of the presence or absence of malignantdisease.This test is not interpretable in females. Serum or plasma angiotensin converting enzyme measurement (enzymatic activity/volume)Ordered By: Seth Alvarado on 11-23-2022 Angiotensin converting enzyme [Catalytic activity/Vol] 38 U/L 14-82 [facility] Serum or plasma beta globuli n measurement by electrophoresis (mass/volume)Ordered By: Seth Alvarado on 11-23-2022 Beta globulin Elph [Mass/Vol] 1.1 g/dL 0.7-1.3 [facility] Serum or plasma calcium alex urement (mass/volume)Ordered By: Seth Alvarado on 11-23-2022 Calcium [Mass/Vol] 9.2 mg/dL 8.5-10.1 [facility] Serum or plasma creatinine m easurement (mass/volume)Ordered By: Seth Alvarado on 11-23-2022 Creatinine [Mass/Vol] 0.93 mg/dL 0.70-1.30 [facility] Comment on above: The validity of the calculated GFR & GFRAA in patients over 70 years has not been determined. Clinical correlation is essential. Serum or plasma cytomegalovi whitney (CMV) IgG antibody assay (units/volume)Ordered By: Seth Alvarado on 11-23-2022 CMV IgG Qn < 0.60 U/mL 0.00-0.59 [facility] Comment on above: Negative <0.60 Equiv ocal 0.60 - 0.69 Positive >0.69 Serum or plasma cytomegalovi whitney (CMV) IgM antibody assay (units/volume)Ordered By: Seth Alvarado on 11-23-2022 CMV IgM Qn < 30.0 AU/mL 0.0-29.9 [facility] Comment on above: Negative <30.0 Equiv ocal 30.0 - 34.9 Positive >34.9A positive result is generally indicative of acuteinfection, reactivation or persistent IgM production. Serum or plasma ferritin lucille surement (mass/volume)Ordered By: Seth Alvarado on 11-23-2022 Ferritin [Mass/Vol] 293 ng/mL 26-[address] [facility] Serum or plasma gamma globul in measurement by electrophoresis (mass/volume)Ordered By: Seth Alvarado on 11-23-2022 Gamma globulin Elph [Mass/Vol] 1.2 g/dL 0.4-1.8 [facility] Serum or plasma hepatitis B virus surface antigen detection by immunoassayOrdered By: Seth Alvarado on 11-23-2022 HBV surface Ag IA Ql Negative Negative [facility] Serum or plasma immunoelectr ophoresis interpretation (nominal result)Ordered By: Seth Alvarado on 11-23-2022 Interpretation IEP [Interp] Comment: . [facility] Comment on above: Presence of monoclon al protein is unclear at this time. Suggestrepeat in 3 to 6 months if clinically indicated. Serum or plasma thyroperoxid ase antibody assay (units/volume)Ordered By: Landen Taveras on 11-23-2022 TPO Ab Qn [IU]/mL 0-34 [facility] Comment on above: Performed at: [address] [id number] Director: Fred Barrera PhD, Phone: [phone] Serum or plasma urea nitroge n measurement (mass/volume)Ordered By: Seth Alvarado on 11-23-2022 Urea nitrogen [Mass/Vol] 12 mg/dL 7-18 [facility] Serum perinuclear neutrophil cytoplasmic antibody titer by immunofluorescenceOrdered By: Seth Alvarado on 11-23-2022 Neutrophil cytoplasmic Ab.perinuclear IF (S) [Titer] <1:20 titer Neg:<1:20 [facility] Comment on above: The presence of posi tive fluorescence exhibiting P-ANCA orC-ANCA patterns alone is not specific for the diagnosis ofWegener's Granulomatosis (WG) or microscopic polyangiitis.Decisions about treatment should not be based solely onANCA IFA results. The International ANCA Group Consensusrecommends follow up testing of positive sera with both KS-3 and MPO-ANCA enzyme immunoassays. As many as 5% serumsamples are positive only by EIA. Ref. AM J Clin [id number];111:507-513. Serum tissue transglutaminas e IgA antibody assay (units/volume)Ordered By: Seth Alvarado on 11-23-2022 tTG IgA Qn (S) <2 U/mL 0-3 [facility] Comment on above: Negative 0 - 3 Weak Positive 4 - 10 Positive >10 Tissue Transglutaminase (tTG) has been identified as the endomysial antigen. Studies have demonstr- ated that endomysial IgA antibodies have over 99% specificity for gluten sensitive enteropathy. Thin prep Papanicolaou smear with manual screeningOrdered By: Seth Alvarado on 11-23-2022 Thin prep Papanicolaou smear with manual screening 46 U/L 15-37 [facility] Thin prep Papanicolaou smear with manual screening 3 5-15 [facility] Thin prep Papanicolaou smear with manual screening Comment . [facility] Comment on above: EBV Interpretation C Radha: Antibody Present + Antibody Absent -Interpretation VCA-IgM VCA-IgG EBNA-IgGNo previous infection/ - - -SusceptiblePrimary infection (new + + -or recent)Past Infection +or- + +See comment below* + - -*Results indicate infection with EBV at some time however cannot predict the timing of the infection since antibodies to EBNA usually develop after primary infection or, alternatively, approximately 5-10% of patients with EBV never develop antibodies to EBNA. QuantiFERON-TB Gold Plus is a qualitative indirect test forM tuberculosis infection (including disease) and isintended for use in conjunction with risk assessment,radiography, and other medical and diagnostic evaluations.The QuantiFERON-TB Gold Plus result is determined bysubtracting the Nil value from either TB antigen (Ag)value. The Mitogen tube serves as a control for the test. Thin prep Papanicolaou smear with manual screening 1.3 0.7-1.7 [facility] Thin prep Papanicolaou smear with manual screening 93 ug/dL 69-132 [facility] Comment on above: Detection Limit = 5 Thin prep Papanicolaou smear with manual screening 0.04 IU/mL . [facility] Thin prep Papanicolaou smear with manual screening > 10.00 IU/mL . [facility] Thin prep Papanicolaou smear with manual screening Negative Negative [facility] Comment on above: No response to M tub erculosis antigens detected.Infection with M tuberculosis is unlikely, but high riskindividuals should be considered for additional testing(ATS/IDSA/CDC Clinical Practice Guidelines, 2017). Thereference range is an Antigen minus Nil result of <0.35IU/mL.The specimen received for QuantiFERON testing was incubatedby the ordering institution. Specific procedures outlinedin our Directory of Services and in the package insert forthe QuantiFERON Gold (In Tube) test must be followed toenable for proper stimulation of cells for the productionof interferon gamma. Chemiluminescence immunoassaymethodology Total protein bloodOrdered B y: Seth Alvarado on 11-23-2022 Protein [Mass/Vol] 7.2 g/dL 6.0-8.5 [facility] Whole blood hemoglobin A1c/t otal hemoglobin ratio (mass fraction)Ordered By: Seth Alvarado on 11-23-2022 HbA1c (Bld) [Mass fraction] 5.6 % 3.8-5.6 [facility] Comment on above: Normal < 5.7 % Predi abetic 5.7 - 6.4 % Diabetic >or= 6.5 % Please note range changes. Basophil percentageOrdered B y: Dr. Taveras on 07-16-2022 Bilirubin [Mass/Vol] 0.50 mg/dL 0.20-1.00 [facility] Comment on above: For patients on eltr ombopag therapy, use of Dimension [place] TBIL is not recommended. Chloride [Moles/Vol] 109 mmol/L 98-107 [facility] Cholesterol [Mass/Vol] 191 mg/dL <200 [facility] Comment on above: <200 mg/dL Desirable 200-240 mg/dL Borderline >240 mg/dL High Risk Glucose [Mass/Vol] 93 mg/dL 74-106 [facility] Potassium [Moles/Vol] 4.0 mmol/L 3.5-5.1 [facility] Protein [Mass/Vol] 7.8 g/dL 6.4-8.2 [facility] Sodium [Moles/Vol] 141 mmol/L 136-145 [facility] Triglyceride [Mass/Vol] 179 mg/dL <199 [facility] Comment on above: The drugs N-Acetylcy steine and Metamizole may falsely depress this assay.Serum Triglycerides Reference Interval Normal <150 mg/dL Borderline high 150 - 199 mg/dL High 200 - 499 mg/dL Very High > or = 500 mg/dL Laboratory - Chemistry and C hemistry - challengeOrdered By: Dr. Taveras on 07-16-2022 ALP [Catalytic activity/Vol] 84 U/L 45-117 [facility] ALT [Catalytic activity/Vol] 85 U/L 16-61 [facility] CO2 [Moles/Vol] 27.0 mmol/L 21.0-32.0 [facility] Globulin (S) [Mass/Vol] 3.6 g/dL 2.2-4.2 [facility] Urea nitrogen/Creatinine [Mass ratio] 10.1 mg/mg 10-20 [facility] No Panel InformationOrdered By: Dr. Taveras on 07-16-2022 Estimated GFR (MDRD) Amer 105 mL/min >60 [facility] Comment on above: GFR Calc Estimated GFR (MDRD) Non-Af Amer 87 mL/min >60 [facility] Comment on above: Non- GFR Calc Serum or plasma albumin alex urement (mass/volume)Ordered By: Dr. Taveras on 07-16-2022 Albumin [Mass/Vol] 4.2 g/dL 3.2-5.0 [facility] Serum or plasma albumin/glob ulin mass ratioOrdered By: Dr. Taveras on 07-16-2022 Albumin/Globulin [Mass ratio] 1.2 {ratio} 0.9-2.4 [facility] Serum or plasma calcium alex urement (mass/volume)Ordered By: Dr. Taveras on 07-16-2022 Calcium [Mass/Vol] 9.1 mg/dL 8.5-10.1 [facility] Serum or plasma cholesterol in HDL measurement (mass/volume)Ordered By: Dr. Taveras on 07-16-2022 Cholesterol in HDL [Mass/Vol] 34 mg/dL >40 [facility] Comment on above: The drugs N-Acetylcy steine and Metamizole may falsely depress this assay. Reference Range HDL <40 mg/dL Low HDL Cholesterol HDL >or= 60 mg/dL High HDL Cholesterol Serum or plasma cholesterol in VLDL measurement (mass/volume)Ordered By: Dr. Taveras on 07-16-2022 Cholesterol in VLDL [Mass/Vol] 36 mg/dL 5-40 [facility] Serum or plasma creatinine m easurement (mass/volume)Ordered By: Dr. Taveras on 07-16-2022 Creatinine [Mass/Vol] 0.99 mg/dL 0.70-1.30 [facility] Comment on above: The validity of the calculated GFR & GFRAA in patients over 70 years has not been determined. Clinical correlation is essential. Serum or plasma low density lipoprotein (LDL) cholesterol measurement (mass/volume)Ordered By: Dr. Taveras on 07-16-2022 Cholesterol in LDL [Mass/Vol] 121 mg/dL 0-130 [facility] Serum or plasma urea nitroge n measurement (mass/volume)Ordered By: Dr. Taveras on 07-16-2022 Urea nitrogen [Mass/Vol] 10 mg/dL 7-18 [facility] Serum or plasma uric acid me asurement (mass/volume)Ordered By: Dr. Taveras on 07-16-2022 Urate [Mass/Vol] 6.9 mg/dL 3.5-7.2 [facility] Comment on above: The drugs N-Acetylcy steine and Metamizole may falsely depress this assay. Thin prep Papanicolaou smear with manual screeningOrdered By: Dr. Taveras on 07-16-2022 Thin prep Papanicolaou smear with manual screening 64 U/L [facility] Thin prep Papanicolaou smear with manual screening 5 5-15 [facility] Serum or plasma uric acid me asurement (mass/volume)on 11-14-2021 Urate [Mass/Vol] 6.4 mg/dL 3.5-7.2 [facility] Work Phone: Comment on above: The drugs N-Acetylcy steine and Metamizole may falsely depress this assay. Clinical Summary: Parvez karla 08-08-2021 MC25 OP Hand Invalid Interpretation Code [facility] Work Phone: Office Visit: New - 1st visi t with practice, Rm:on 08-08-2021 NEGATED: Highlighted rowMRI (magnetic resonance imaging) history of the right wrist on 07/25/2021 at [place] Invalid Interpretation Code [facility] Work Phone: Clinical Lists Update: Prelo ad Extendedon 08-07-2021 Tobacco smoking status Tobacco smoking status In valid Interpretation Code [facility] Work Phone: Clinical Summary: Scanned Hi story Summaryon 08-04-2021 Data entered by patient exercise frequency 2 days per week Invalid Interpretation Code [facility] Work Phone: Data entered by patient exercise type walking, strength training Invalid Interpretation Code [facility] Work Phone: data entered by patient, alcohol (ethanol or ETOH) use No Invalid Interpretation Code [facility] Work Phone: Data entered by patient, allergy list I don't have any Drug Allergies I don't have any Environmental Allergies I don't have any Food Allergies Invalid Interpretation Code [facility] Work Phone: data entered by patient, drug (of abuse) use No Invalid Interpretation Code [facility] Work Phone: data entered by patient, Employer Name employed Invalid Interpretation Code [facility] Work Phone: data entered by patient, exercise history Yes Invalid Interpretation Code [facility] Work Phone: data entered by patient, father's medical history Diabetes - insulin dependent Invalid Interpretation Code [facility] Work Phone: Data entered by patient, history of past surgeries Knee surgery other Invalid Interpretation Code [facility] Work Phone: Data entered by patient, medication list multi vitamin-Unknown [id number] a day Invalid Interpretation Code [facility] Work Phone: data entered by patient, mother's medical history Diabetes - non-insulin dependent Invalid Interpretation Code [facility] Work Phone: Data entered by patient, problem list I do not have any past medical illnesses or conditions Invalid Interpretation Code [facility] Work Phone: data entered by patient, social history, current smoker never smoker Invalid Interpretation Code [facility] Work Phone: data entered by patient, social history, marital status Invalid Interpretation Code [facility] Work Phone: father of patient is alive or Alive Invalid Interpretation Code [facility] Work Phone: Housing Type: apartment, house, alf, trailer, none house Invalid Interpretation Code [facility] Work Phone: housing unit size (asthma environmental history, housing) (from single family to don't know) 2 floors Invalid Interpretation Code [facility] Work Phone: medical history of patient's brother(s) My brother's health history is unknown Invalid Interpretation Code [facility] Work Phone: medical history of patient's sister Cancer Diabetes - insulin dependent Obesity Invalid Interpretation Code [facility] Work Phone: mother of patient is alive or Alive Invalid Interpretation Code [facility] Work Phone: Number of dependent children Yes Invalid Interpretation Code [facility] Work Phone: Web entered surgical history comments Nose surgery and dental implant. Invalid Interpretation Code [facility] Work Phone: Basophil percentageon 2021 Bilirubin [Mass/Vol] 0.60 mg/dL 0.20-1.00 [facility] Work Phone: Comment on above: For patients on eltr ombopag therapy, use of Dimension [place] TBIL is not recommended. Chloride [Moles/Vol] 107 mmol/L 98-107 [facility] Work Phone: Cholesterol [Mass/Vol] 201 mg/dL <200 [facility] Work Phone: Comment on above: <200 mg/dL Desirable 200-240 mg/dL Borderline >240 mg/dL High Risk Glucose [Mass/Vol] 103 mg/dL 74-106 [facility] Work Phone: Comment on above: Fasting Glucose resu lt from 100 to 125 mg/dL suggests IMPAIRED HOMEOSTASIS per A.D.A. criteria. Potassium [Moles/Vol] 4.3 mmol/L 3.5-5.1 [facility] Work Phone: Protein [Mass/Vol] 8.0 g/dL 6.4-8.2 [facility] Work Phone: Sodium [Moles/Vol] 139 mmol/L 136-145 [facility] Work Phone: [phone] Triglyceride [Mass/Vol] 180 mg/dL [facility] Work Phone: Comment on above: The drugs N-Acetylcy steine and Metamizole may falsely depress this assay.Serum Triglycerides Reference Interval Normal <150 mg/dL Borderline high 150 - 199 mg/dL High 200 - 499 mg/dL Very High > or = 500 mg/dL Laboratory - Chemistry and C hemistry - challengeon 07-10-2021 ALP [Catalytic activity/Vol] 76 U/L 45-117 [facility] Work Phone: [phone] ALT [Catalytic activity/Vol] 79 U/L 16-61 [facility] Work Phone: [phone] CO2 [Moles/Vol] 29.0 mmol/L 21.0-32.0 [facility] Work Phone: [phone] Globulin (S) [Mass/Vol] 3.8 g/dL 2.2-4.2 [facility] Work Phone: [phone] Urea nitrogen/Creatinine [Mass ratio] 12.2 mg/mg 10-20 [facility] Work Phone: [phone] No Panel Informationon 07-10 Estimated GFR (MDRD) Amer 107 mL/min >60 [facility] Work Phone: [phone] Comment on above: GFR Calc Estimated GFR (MDRD) Non-Af Amer 88 mL/min >60 [facility] Work Phone: [phone] Comment on above: Non- GFR Calc Serum or plasma albumin alex urement (mass/volume)on 07-10-2021 Albumin [Mass/Vol] 4.2 g/dL 3.2-5.0 [facility] Work Phone: [phone] Serum or plasma albumin/glob ulin mass ratioon 07-10-2021 Albumin/Globulin [Mass ratio] 1.1 {ratio} 0.9-2.4 [facility] Work Phone: [phone] Serum or plasma calcium alex urement (mass/volume)on 07-10-2021 Calcium [Mass/Vol] 9.5 mg/dL 8.5-10.1 [facility] Work Phone: [phone] Serum or plasma cholesterol in HDL measurement (mass/volume)on 07-10-2021 Cholesterol in HDL [Mass/Vol] 33 mg/dL [facility] Work Phone: [phone] Comment on above: The drugs N-Acetylcy steine and Metamizole may falsely depress this assay. Reference Range HDL <40 mg/dL Low HDL Cholesterol HDL >or= 60 mg/dL High HDL Cholesterol Serum or plasma cholesterol in VLDL measurement (mass/volume)on 07-10-2021 Cholesterol in VLDL [Mass/Vol] 36 mg/dL 5-40 [facility] Work Phone: Serum or plasma creatinine m easurement (mass/volume)on 07-10-2021 Creatinine [Mass/Vol] 0.98 mg/dL 0.70-1.30 [facility] Work Phone: Comment on above: The validity of the calculated GFR & GFRAA in patients over 70 years has not been determined. Clinical correlation is essential. Serum or plasma low density lipoprotein (LDL) cholesterol measurement (mass/volume)on 07-10-2021 Cholesterol in LDL [Mass/Vol] 132 mg/dL 0-130 [facility] Work Phone: Serum or plasma urea nitroge n measurement (mass/volume)on 07-10-2021 Urea nitrogen [Mass/Vol] 12 mg/dL 7-18 [facility] Work Phone: Thin prep Papanicolaou smear with manual screeningon 07-10-2021 Thin prep Papanicolaou smear with manual screening 65 U/L 15-37 [facility] Work Phone: Thin prep Papanicolaou smear with manual screening 3 5-15 [facility] Work Phone: Vital Signs Date Time Vital Sign Value Performing Clinician Facility 06-20-2023 08:30-0500 Body temperature 97.6 [degF] Dr. Landen Taveras Work Phone: [facility] 06-20-2023 08:30-0500 Diastolic blood pressure 77 mm[Hg] Dr. Landen Taveras Work Phone: [facility] 06-20-2023 08:30-0500 Heart rate 55 /min Dr. Landen Taveras Work Phone: [facility] 06-20-2023 08:30-0500 Respiratory rate 16 /min Dr. Landen Taveras Work Phone: [facility] 06-20-2023 08:30-0500 SaO2% (BldA) [Mass fraction] 96 % Dr. Landen Taveras Work Phone: [facility] 06-20-2023 08:30-0500 Systolic blood pressure 118 mm[Hg] Dr. Landen Taveras Work Phone: [facility] 06-20-2023 06:56-0500 Body height 175.[address] Landen Taveras Work Phone: [facility] 06-20-2023 06:56-0500 Body mass index (BMI) [Ratio] 35.4 kg/m2 Dr. Landen Taveras Work Phone: [phone] [place] [address] 06-20-2023 06:56-0500 Body weight 108.[address] Landen Taveras Work Phone: [phone] [place] [address] 05-10-2023 14:10-0500 Body height 175.[address] Landen Taveras Work Phone: [phone] [place] [address] 05-10-2023 14:10-0500 Body mass index (BMI) [Ratio] 35.1 kg/m2 Dr. Landen Taveras Work Phone: [facility] 05-10-2023 14:10-0500 Body weight 107.[address] Landen Taveras Work Phone: [facility] 05-10-2023 14:10-0500 Diastolic blood pressure 88 mm[Hg] Dr. Landen Taveras Work Phone: [facility] 05-10-2023 14:10-0500 Heart rate 68 /min Dr. Landen Taveras Work Phone: [facility] 05-10-2023 14:10-0500 SaO2% (BldA) [Mass fraction] 95 % Dr. Landen Taveras Work Phone: [phone] [place] [address] 05-10-2023 14:10-0500 Systolic blood pressure 148 mm[Hg] Dr. Landen Taveras Work Phone: [facility] NEGATED: Highlighted [id number] 09:15-0400 Body height 178 cm Gena Pérez LPN [facility] Work Phone: NEGATED: Highlighted [id number] 09:15-0400 Body height 177.8 cm Gena Pérez LPN [facility] Work Phone: NEGATED: Highlighted [id number] 09:15-0400 Body mass index (BMI) [Ratio] 34.56 kg/m2 Gena Pérez LPN [facility] Work Phone: NEGATED: Highlighted [id number] 09:15-0400 Body weight 109 kg Gena Pérez LPN [facility] Work Phone: NEGATED: Highlighted [id number] 09:15-0400 Body weight 108.86 kg Gena Pérez LPN [facility] Work Phone: Encounters Encounter Date Encounter Type Care Provider Facility Start: 10-07-2024 ambulatory Prashant Taveras [facility] lity:[facility] Start: 09-28-2024 ambulatory Prashant Taveras Fac lity:[facility] Start: 08-19-2024 End: 08-19-2024 ambulatory Prashant Taveras Facility:[facility] Start: 04-30-2024 End: 04-30-2024 ambulatory [facility] Facility:[facility] Start: 04-30-2024 End: 04-30-2024 ambulatory [facility] Facility:[facility] Start: 03-12-2024 End: 03-12-2024 [facility] Start: 02-21-2024 End: 02-21-2024 ambulatory Prashant Taveras Facility:[facility] Start: 01-30-2024 End: 01-30-2024 ambulatory [facility] Facility:[facility] Start: 01-01-2024 End: 01-01-2024 ambulatory Prashant Taveras Facility:[facility] Start: 09-26-2023 End: 09-26-2023 ambulatory [facility] Facility:[facility] Start: 06-20-2023 Non-patient / Non-visit Dr. Landen Taveras Work Phone: [facility] Start: 06-20-2023 End: 06-20-2023 Admission to same day surgery center Dr. Landen Taveras Work Phone: [facility] Work Phone: Start: 06-20-2023 End: 06-20-[address] Landen Taveras Work Phone: [facility] Work Phone: Start: 05-23-2023 End: 05-23-[address] Landen Taveras Work Phone: [facility] Work Phone: Start: 05-23-2023 End: 05-23-[address] Landen Taveras Work Phone: [facility] Work Phone: Start: 05-10-2023 End: 05-10-[address] Landen Taveras Work Phone: [facility] Work Phone: Start: 01-07-2023 End: 01-07-[address] Landen Taveras Work Phone: [facility] Work Phone: Start: 01-07-2023 End: 01-07-[address] Landen Taveras Work Phone: [facility] Work Phone: Start: 12-10-2022 End: 12-10-[address] Landen Taveras Work Phone: [facility] Work Phone: Start: 12-10-2022 End: 12-10-[address] Landen Taveras Work Phone: [facility] Work Phone: Start: 11-23-2022 End: 11-23-[address] Landen Taveras Work Phone: [facility] Work Phone: Start: 11-23-2022 End: 11-23-[address] Landen Taveras Work Phone: [facility] Work Phone: Start: 11-23-2022 End: 11-23-[address] Landen Taveras Work Phone: [facility] Work Phone: Start: 07-26-2022 End: 07-26-2022 ambulatory [facility] Work Phone: Start: 07-26-2022 End: 07-26-2022 Patient encounter procedure [facility] Start: 07-16-2022 End: 07-16-2022 ambulatory [facility] Work Phone: Start: 07-16-2022 End: 07-16-2022 [facility] Start: 11-14-2021 End: 11-14-2021 Patient encounter procedure [facility] Start: 08-08-2021 End: 08-08-2021 Ot evaluation Neal Quintanilla MD Work Phone: [facility] Work Phone: Start: 07-25-2021 End: 07-25-2021 Patient encounter procedure [facility] Start: 07-10-2021 End: 07-10-2021 Patient encounter procedure [facility] [place] Procedures Date Procedure Procedure Detail Performing Clinician Start: 06-20-[address] Rory Taveras Work Phone: Start: 05-23-2023 Computed tomography of abdomen and pelvis with contrast Dr. Landen Taveras Work Phone: Start: 01-07-2023 Plain x-ray of pelvi s and lower extremity Dr. Landen Taveras Work Phone: Start: 12-10-[address] Landen Taveras Work Phone: Start: 07-26-2022 Ultrasound elastogra phy of liver Start: 08-08-2021 End: 08-08-2021 BP scrn no [...] encounter procedure Neal Quintanilla MD Work Phone: Start: 07-25-2021 MRI of joint of lowe r extremity Start: 07-10-2021 Plain x-ray of wrist NEGATED: Highlighted rowStart: 08-08-2021 End: 08-08-2021 Documentation of current medications Gena Pérez LPN Plan of Treatment Date Care Activity Detail Author Start: 06-20-2023 Patient discharge [facility] Start: 12-10-2022 Ultrasound elastography [facility] Start: 11-23-2022 Acute hepatitis 2000 panel - Serum [facility] Start: 11-23-2022 Aldolase [Enzymatic activity/volume] in Serum or Plasma [facility] [facility] Start: 11-23-2022 Anuia-0-squdqbizcck.tumor marker [Units/volume] in Serum or Plasma [facility] Start: 11-23-2022 Angiotensin converting enzyme [Enzymatic activity/volume] in Serum or Plasma [facility] Start: 11-23-2022 Ceruloplasmin [Mass/volume] in Serum or Plasma [facility] Start: 11-23-2022 Copper [Moles/volume] in Serum or Plasma [facility] Start: 11-23-2022 Cytomegalovirus IgG antibody measurement [facility] Start: 11-23-2022 Cytomegalovirus IgM antibody assay [facility] Start: 11-23-2022 Misa Brower virus capsid IgG and IgM panel - Serum [facility] Start: 11-23-2022 Haptoglobin [Mass/volume] in Serum or Plasma [facility] Start: 11-23-2022 In-vitro immunologic test [facility] Start: 11-23-2022 Laboratory test [facility] Start: 11-23-2022 Serum immunofixation [facility] Start: 11-23-2022 Smooth muscle Ab [Presence] in Serum [facility] Start: 11-23-2022 [facility] Start: 08-08-2021 End: 08-08-2021 Patient encounter procedure Appointment [facility] Work Phone: Start: 08-08-2021 End: 08-08-2021 Radex wrist complete minimum 3 views XR WRIST 3 VWS-RT [facility] Work Phone: Albumin [Moles/volum e] in Serum or Plasma [facility] Albumin/Globulin ratio [facility] Electrophoresis: [id number] [facility] Electrophoresis: radha ma globulin [facility] Misa Brower virus c apsid IgG Ab [Units/volume] in Serum [facility] Misa Brower virus c apsid IgM Ab [Units/volume] in Serum [facility] Misa Brower virus n uclear IgG Ab [Units/volume] in Cerebral spinal fluid [facility] Misa-Brower virus s erologic test [facility] Gliadin peptide IgA Ab [Units/volume] in Serum [facility] Gliadin peptide IgG Ab [Units/volume] in Serum [facility] Globulin measurement [facility] Hepatitis A virus Ig M Ab [Presence] in Serum [facility] Hepatitis B core ant ibody measurement, IgM type [facility] Hepatitis B surface antigen measurement [facility] Hepatitis C antibody measurement [facility] IgA [Mass/volume] in Serum or Plasma [facility] IgG [Mass/volume] in Serum or Plasma [facility] IgM [Mass/volume] in Serum or Plasma [facility] Measurement of immunoglobulin A in serum specimen [facility] Mycobacterium tuberc ulosis tuberculin stimulated gamma interferon [Presence] in Blood [facility] Neutrophil cytoplasm ic Ab.classic [Units/volume] in Serum [facility] P-ANCA measurement [facility] Patient referral [facility] Work Phone: Protein electrophore sis panel - Serum or Plasma [facility] Serum protein electrophoresis [facility] Tissue transglutamin ase IgA Ab [Units/volume] in Serum [facility] Tissue transglutamin ase IgG Ab [Units/volume] in Serum [facility] Ultrasound elastography [facility] Payers Date Payer Category Payer Self-pay [id number] 2012 Unknown [id number] Unknown [id number] 2.16.8 [id number] Unknown [id number] 2.16.8 [id number] Unknown [id number] 2.16.8 [id number] Unknown [id number] 2.16.8 [id number] Unknown [id number] 2.16.8 [id number] Unknown [id number] 2.16.8 [id number] Unknown [id number] 2.16.8 [id number] Unknown [id number] 2.16.8 [id number] Unknown [id number] 2.16.8 [id number] Unknown [id number] 2.16.8 [id number] Social History Date Type Detail Facility Tobacco smoking status NHIS Unknown if ever smoked [facility] Work Phone: Start: 1980 Sex Assigned At Male [facility] Start: 08-08-2021 End: 08-08-2021 Assertion Unknown if ever smoked [facility] Work Phone: NEGATED: Highlighted rowStart: 08-08-2021 End: 08-08-2021 Employment detail Employment detail [facility] Work Phone: Goals Date Patient Goal Desired Activity /State Mental Status Date Assessment Result Facility 06-20-2023 Cognitive function Level Of Consciousness Sedated [facility] Work Phone: 06-20-2023 Cognitive function Voice/Name [facility] Work Phone: History and physical note 06-20-2023 Note Date & Type Note Facility 06-20-2023 History and physi carlos note Note Date/Time June 20, 2023 7:37am [facility] Medical Records Department [address] [place] [address] History & Physical Exam 06/20/23 0737 MR#: [id number] Acct: [id number] Name: SUZI SPENCER Rep #:[id number] : 1980 42 From: Seth Friend DO PCP: Dr. Landen Taveras MD Status: [facility] Location: [place] [address] History and Physical Date of Admission: 06/20/23 SUZI SPENCER, is a 42 M who presents to the office today for follow up. PCPOV 07.16.22 for well check noting no cigarette, alcohol or illicit drug use. Notes history of elevated LFT. Biochemical 07.16.22 CMP, uric acid, triglycerides, lipids withoutpertinent abnormality. AST H64-ALT H85-AP 84 US RUQ and elastography 4.10.12 hepatic measurement 17cm with fatty infiltration and stiffness 8kPa *BGI established 8..23 for liver abnormality findings. Denies alcoholism, illicit drug use, FH liver disease or blood transfusions. US elastography 12.10.22- Stiffness measures 6 kPa OV 1.- Pt well since last visit. Reports daily RUQ pain persistent, last for 2 to 3 hours gets better with Tums, more persistent for the last 3 months although it was occasional, on and off pain for the last 1 year. Sometimes, wakes him up during the night. Has occasion heartburn. Patient also states occasionally he has watery bowel movement every couple of months for about 1 year. Mother of pancreatic cancer. Is having a BM at least once a day. Lab tests from previous visit reviewed and discussed with patient and her . ROS Const Constitutional: No fatigue ENT ENT: No difficulty swallowing Gastro GI: Positive for abdominal pain and heartburn; No belching, bloating, change in bowel habits, change in stool character, coffeeground emesis, constipation, cramping, diarrhea, difficulty swallowing, feeling full early, excessive flatus, incontinent of stools, Vomiting blood/hematemesis,Blood in stool, loose stools, Black,tarry stools, nausea/dyspepsia, pain with swallowing, vomiting or other Musc Musculoskeletal: Positive for joint pain, back pain, numbness, stiffness and tingling Skin Skin: No yellowing of the eye or itchy eyes Neuro Neurology: Positive for numbness and tingling Psych Psychiatric: No anxiety and No depression Endo Endocrine: No fatigue Aller/Imm Allergy/Immunologic: No itchy eyes Oneal/Lymp Hematologic/Lymphatic: No easy bleeding or easy bruising Exam Const General: cooperative, no acute distress and well developed Nutritional Appearance: overweight Orientation: alert, awake and oriented x3 HENMT Head: normocephalic and atraumatic Nose: external nose normal Face and sinus: normal facial exam Mouth: moist mucous membranes Eyes Pupils: PERRL EOM: EOM intact bilaterally Neck Neck: normal visual inspection, no meningeal signs and trachea midline Carotids: no bruits Chest Chest palpation & inspection: normal inspection of the chest Resp Effort & Inspection: normal respiratory effort and symmetric chest movement Auscultation: Bilateral: Clear to Auscultation Cardio Palpation: normal PMI Rate: regular rate Rhythm: regular rhythm Heart Sounds: S1 normal and S2 normal GI Auscultation: normal bowel sounds Percussion: normal to percussion Palpation: soft, no hepatosplenomegaly and no guarding Other: Mild tenderness around right subcostal margin. No tenderness over epigastrium or other quadrants. Liver not enlarged. Spleen not palpable. Clinically no ascites. General: bimanual renal exam normal bilaterally, bladder normal to inspection and bladder normal to palpation Musc Musculoskeletal: No joint tenderness, joint redness, joint warmth or decreased range of motion Thoracic/Lumbar Spine: thor and lumb spine abnorm to inspection Skin General: rashes and/or lesions noted, turgor normal and no erythema Wounds: wound noted Neuro General: patient alert, patient awake, patient oriented x3 and no focal motor deficits Speech: speech normal Motor: muscle tone normal throughout Extrem General: normal exam except as noted Other: No pitting edema. Psych Appearance: grossly normal Mood: congruent mood Affect: normal affect Attitude: cooperative Assessment and Plan Assessment and Plan (1) Elevated LFTs: Status: Chronic Plan: This is 42-year-old gentleman who was established in the [facility] office in November 2022 referred for elevated liver chemistry. Patient has elevated ALT and AST 82 and 74 respectively which has improved to 68 and 46 now. His extensive workup was negative for celiac disease, autoimmune disease, ceruloplasmin, QuantiFERON test. Protein electrophoresis also looks normal fractionation of albumin, alpha-1, alpha-2 and beta globulin, and gammaglobulin. But it was reported that presence of monoclonal protein unclear but clinically patient has normal calcium does not have any bony pain anion gap therefore suspicion of monoclonal gammopathy/MGUS or multiple myeloma unlikely. Patient has elevated IgG of EBV which shows past exposure/infection. Patient had liver elastography shows 6 kPa compatible with F2 F3 liver fibrosis. Previous RUQ sonogram in July 2021 shows borderline hepatomegaly with fatty infiltration and multiple gallstones but no features of acute cholecystitis. Normal echogenicity of pancreas with no pancreatic mass or cyst. Patient further stated that his sister was diagnosed with cholangiocarcinoma andhis mother recently of pancreatic cancer. CA 19-9 is ordered. Diagnosis unclear but may be NICOLAS or gallstones or peptic ulcer disease. The future course of action discussed with the patient and his . Will start with CT abdomen pelvis with oral and IV contrast, EGD and colonoscopy. If it isstill diagnosis unclear will further discuss for liver biopsy/MRCP. Will follow-up in [address] abdomen pelvis, EGD and colonoscopy. (2) NAFLD (nonalcoholic fatty liver disease): Status: Chronic Plan: Possible NICOLAS but liver chemistry improving. (3) Abdominal pain: Status: Acute Qualifiers: Abdominal location: right upper quadrant Qualified Code(s): R10.11 - Right upper quadrant pain Plan: As discussed above. Orders: Orders CRP Today R10.9 - Unspecified abdominal pain Prothrombin Time w/INR Today R10.9 - Unspecified abdominal pain Comprehensive Metabolic Profil Today R10.9 - Unspecified abdominal pain Abdomen/Pelvis WITH Contrast 1 Week R10.9 - Unspecified abdominal pain Carbohydrate AG 19-9 Today R10.9 - Unspecified abdominal pain, R79.89 - Other specified abnormal findings of blood chemistry I have examined the patient and the H&P has been reviewed. There are no clinicalchanges since date of exam. 06/20/23 0737 <Electronically signed by Seth Alvarado DO> Cosigner Signature (if applicable): CC: Dr. Landen Taveras MD; Seth Alvarado DO~ Signed [facility] Work Phone: Procedure note 06-20-2023 Note Date & Type Note Facility 06-20-2023 Procedure note [facility] Procedure note 06-20-2023 Note Date & Type Note Facility 06-20-2023 Procedure note [facility] Procedure note 06-20-2023 Note Date & Type Note Facility 06-20-2023 Procedure note [facility] Procedure note 06-20-2023 Note Date & Type Note Facility 06-20-2023 Procedure note [facility] Evaluation note Note Date & Type Note Facility Evaluation note No assessment information availa ble [facility] Work Phone: Evaluation note Note Date & Type Note Facility Evaluation note There may be informa tion available, but it has not been provided by the sender. [facility] Work Phone: Evaluation note Note Date & Type Note Facility Evaluation note Diagnosis Onset Date Elevated LFTs chronic [facility] Work Phone: Evaluation note Note Date & Type Note Facility Evaluation note Diagnosis Onset Date Abdominal pain acute Elevated LFTs chronic NAFLD (nonalcoholic fatty liver disease) [facility] Work Phone: Instructions Note Date & Type Note Facility Instructions CompletedPatient advised to follow-up with Primary Care Physician for BMI management. [facility] Work Phone: Chief Complaint Chief Complaint Description Start Date right wrist Preliminary chief co mplaint data, not yet signed by the author as of Advance Directives No Advanced Directives Records Found Advance Directive Response Recorded Date/ Time Name of Medical Power of Bone Grinder SPOUSE June 17, 2023 12:08pm Living Will Yes June 17, 024 12:08pm Power of Bone Grinder Yes June 17, 2023 12:08pm Family History No Family History Records Found Relationship Condition Age at Onset Recorded Date/T vanna father Diabetes mellitus Unknown grandfather Malignant neoplasm Unknown sister Diabetes mellitus Unknown grandmother Diabetes mellitus Unknown Malignant neoplasm of lung Unknown mother Diabetes mellitus Unknown Arthritis Unknown grandfather Cardiac disease Unknown Chief Complaint and Reason for Visit Chief Complaint RIGHT WRIST PAIN Chief Complaint ELEVATED LFTS Chief Complaint Consult E ORDERS Reason for Visit Elevated LFTs Chief Complaint Consult E ORDERS FATTY LIVER DISEASE Reason for Visit Elevated LFTs Chief Complaint Consult E ORDERS FATTY LIVER DISEASE EORDER Reason for Visit Elevated LFTs Chief Complaint First visit - 60 min RUQ PAIN, OCC DIARRHEA, GALLSTONES Reason for Visit Abdominal pain Elevated LFTs NAFLD (nonalcoholic fatty liver disease) Summary Purpose Additional Source Comments Goals (unrecognized section and content) Goals may be documented in a n alternate sectionGoals may be documented in an alternate sectionGoals may be documented in an alternate sectionGoals may be documented in an alternate sectionGoals may be documented in an alternate sectionGoals may be documented in an alternate sectionGoals may be documented in an alternate sectionGoals may be documented in an alternate section Reason for Visit (unrecogniz ed section and content) Reason For Visit Description New - 1st visit with practice Preliminary reason f or visit data, not yet signed by the author as of right wrist Care Teams (unrecognized sec tion and content) Team Status: Active Member Role Status Dates Dr. Landen Taveras MD Family Provider Active Dr. Landen Taveras MD Primary Care Provider Activ e Team Status: Inactive Member Role Status Dates Dr. Landen Taveras MD Primary Care Provider, Atte nding Provider Active Team Status: Inactive Member Role Status Dates Dr. Landen Taveras MD Primary Care Provider, Attending Provider, Referring Provider Active Team Status: Inactive Member Role Status Dates Dr. Landen Taveras MD Primary Care Provider, Refe rring Provider Active Dr. Seth Alvarado DO Attending Provider Active Team Status: Inactive Member Role Status Dates Dr. Landen Taveras MD Primary Care Provider Activ e Dr. Seth Alvarado DO Attending Provider, Referring Provider Active Team Status: Inactive Member Role Status Dates Dr. Landen Taveras MD Primary Care Provider, Refe rring Provider Active Dr. John Brand MD Attending Provider Active Team Status: Inactive Member Role Status Dates Dr. Landen Taveras MD Primary Care Provider Activ e Dr. John Brand MD Attending Provider, Referring P rovider Active Team Status: Active Member Role Status Dates Dr. Landen Taveras MD Primary Care Provider, Refe rring Provider Active Dr. Seth Alvarado DO Attending Provider, Other Prov ider Active (unrecognized sect ion and content) No Status Records Found INFORMATION SOURCE (unrecogn ized section and content) DATE CREATED AUTHOR 09/24/2024 [facility] FOR RECORDS PERTAINING TO PATIENTS WHO ARE [...] BE BASED ON THE PRIMARY CLINICAL RECORDS. [facility]. provides no warranty or guarantee of the accuracy or completeness of information in this document.
== END | disposition home or self-care (01) ==
LOC: US 09:58
PROVIDERS: PCP Family Medicine; Referring Provider Internal Medicine; Visit Provider Internal Medicine
DX: K80.20 Calculus of gallbladder without cholecystitis without obstruction (principal); E78.5 Hyperlipidemia, unspecified; R10.11 Right upper quadrant pain; R79.89 Other specified abnormal findings of blood chemistry; K76.0 Fatty (change of) liver, not elsewhere classified
CPT/HCPCS: 76705; 76981

== ENCOUNTER 2024-10-07 09:43 | Day surgery (SDC) | payer OTHER, SELFPAY ==
[2024-10-07] VITALS (9 sets, daily range): BP systolic 98–149; BP diastolic 71–82; PULSE 67–78; RESP 14–16; TEMP 36.5–36.6; O2SAT 94–97; BMI 35.4
--- NOTE | 2024-10-07 10:07 | PCM.HP.STD ---
HPI - General General Date of Admission: 10/07/24 Date of Service: 10/07/24 Chief Complaint: Cruz's esophagus HPI Narrative SUZI SPENCER, is a 44 M who presents today for surveillance of Cruz's esophagus. ?US RUQ and elastography .10.12 hepatic measurement 17cm with fatty infiltration and stiffness 8kPa *BGI established 8.4.23 for liver abnormality findings. Denies alcoholism, illicit drug use, FH liver disease or blood transfusions. US elastography 12.10.22- ?Stiffness measures 6 kPa OV 1.24- ?Pt well since last visit. Reports daily RUQ pain persistent, last for 2 to 3 hours gets better with Tums, more persistent for the last 3 months although it was occasional, on and off pain for the last 1 year. ?Sometimes, wakes him up during the night. Has occasion heartburn. ?Patient also states occasionally he has watery bowel movement every couple of months for about 1 year. ?Mother of pancreatic cancer. Is having a BM at least once a day. ?Lab tests from previous visit reviewed and discussed with patient and her . CT abd/pel w/ contrast 2.05.15- Borderline hepatomegaly with diffuse fatty liver, multiple gallstones EGD 06.20.23- Z-line irregular, medium hiatal hernia, bile duodenitis Pathology- gastric metaplasia, minimal nonspecific chronic inflammation. 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 C/O diarrhea daily but less frequent throughout the day. ?No heartburn or abdominal pain. Continues multivitamin daily. US abd/ elastography 6.10.13- Liver measures 18.5cm ?Stiffness 7.2 kPa OV 9..24- Patient well since last visit. ?About few days ago he had a large pizza at night and then had right quadrant pain severe 7-8/10 intensity similar to gallbladder colic. ?Continues Pantoprazole. BM normal once a day. 03.12.24 ?Fib-4 ?1.06 OV 1.9.25- Patient well since last visit. ?Was referred to general surgery at last visit for gallbladder but declined surgical intervention. Says he has changed his diet and has been avoiding greasy, high fat foods. Has not had anymore abdominal pain. BM are normal. ?No other concerns 04.30.24- ?Fib- 4 ? 1.25 OV 08.19.24 Denies GI concerns at this time. During recent vacation assumes had GI illness that has since resolved. [facility] Medical History (Updated 10/07/24 @ 10:[address] Ann Friend, DO) Alcohol use Gastric reflux History of pain when walking Back pain Non-smoker Hx of reduction of nasal fracture HLD (hyperlipidemia) Fatty liver Home Medications ?Medication ?Instructions ?Recorded ?Last Taken ?Type multivitamin (Daily Multi-Vitamin 1 tab PO DAILY 06/17/23 Unknown History tablet) pantoprazole 40 mg tablet,delayed 40 mg PO DAILY 10/02/24 Unknown History release rosuvastatin 20 mg tablet 20 mg PO QHS 10/02/24 Unknown History Allergy/AdvReac Type Severity Reaction Status Date / Time No Known Allergies Allergy Verified 10/02/24 10:46 Family History Father Diabetes Grandfather Cancer Sister Diabetes Grandmother Diabetes Lung cancer Mother Diabetes Arthritis Grandfather Heart disease Surgical History (Updated 10/02/24 @ 10:52 by Vangie Lomeli) Hx of colonoscopy Hx of knee surgery H/O vasectomy Social History Smoking Status: Never smoker alcohol intake: current alcohol intake frequency: a few times a month substance use type: does not use ROS Constitutional Constitutional: Denies fatigue, fever(s), poor appetite, weight gain or weight loss Gastrointestinal Gastrointestinal: Denies belching, bloating, change in bowel habits, change in stool character, chewing difficulty, coffee ground emesis, constipation, cramping, diarrhea, dyspepsia, dysphagia, early satiety, excessive flatus, fecal incontinence, heartburn, hematemesis, hematochezia, hemorrhoids, loose stools, melena, nausea, odynophagia, rectal bleeding, tenesmus, vomiting or weight changes Physical Exam Const alert, oriented x3, no apparent distress and healthy appearing General Appearance: cooperative GI normal to inspection, nondistended, normoactive bowel sounds, soft to palpation, non-tender and non-distended Percussion: normal to percussion Rectal Exam: deferred Assessment & Plan Assessment/Plan (1) Barretts esophagus: PLAN: Assessment and Plan Assessment and Plan (1) Cholelithiasis: Status: Chronic Plan: Patient did not had abdominal pain. He is avoiding fatty, oily and greasy food. Saw the surgeon Dr. Low and does not want surgery now. He is not having any abdominal pain. (2) Metabolic dysfunction-associated steatotic liver disease (MASLD): Status: Chronic Plan: No abdominal pain. Bowel movement regular. Labs reviewed. Slight progressive increase in ALT and AST, ALT more than AST. Alkaline phosphatase normal. Liver ultrasound and elastography reviewed. Fatty infiltration. Median liver stiffness 7.2 kPa. GB wall 2.1. No pericholecystic fluid. Multiple echogenic consistent with multiple gallstones. CBD 4.3 mm Patient had liver elastography shows 6 kPa compatible with F2 F3 liver fibrosis. His extensive workup was negative for celiac disease, autoimmune disease, ceruloplasmin, QuantiFERON test. Protein electrophoresis also looks normal fractionation of albumin, alpha-1, alpha-2 and beta globulin, and gammaglobulin. Indication, response rate, benefits, side effects/adverse effects and drug drug interaction of Resmitrom first FDA approved medication for F2 F3 liver fibrosis, MASLD was discussed with the patient with booklet. Questions encouraged and answered. Repeat liver ultrasound elastography ordered. I feel patient is a good candidate for Rezdiffra. Will consider this medication after repeat liver ultrasound. Orders: (3) Cruz's esophagus Orders ABD Limited w/ Elastography 3 Months E78.5 - Hyperlipidemia, unspecified, K76.0 - Fatty (change of) liver, not elsewhere classified, K80.20 - Calculus of gallbladder without cholecystitis without obstruction, R10.11 - Right upper quadrant pain, R79.89 - Other specified abnormal findings of blood chemistry CBC W/Diff, Automated 3 Months E78.5 - Hyperlipidemia, unspecified, K76.0 - Fatty (change of) liver, not elsewhere classified, K80.20 - Calculus of gallbladder without cholecystitis without obstruction, R10.11 - Right upper quadrant pain, R79.89 - Other specified abnormal findings of blood chemistry Comprehensive Metabolic Profil 3 Months E78.5 - Hyperlipidemia, unspecified, K76.0 - Fatty (change of) liver, not elsewhere classified, K80.20 - Calculus of gallbladder without cholecystitis without obstruction, R10.11 - Right upper quadrant pain, R79.89 - Other specified abnormal findings of blood chemistry Prothrombin Time w/INR 3 Months E78.5 - Hyperlipidemia, unspecified, K76.0 - Fatty (change of) liver, not elsewhere classified, K80.20 - Calculus of gallbladder without cholecystitis without obstruction, R10.11 - Right upper quadrant pain, R79.89 - Other specified abnormal findings of blood chemistry ANDRIA w/ Reflex Mult Confirm 3 Months E78.5 - Hyperlipidemia, unspecified, K76.0 - Fatty (change of) liver, not elsewhere classified, K80.20 - Calculus of gallbladder without cholecystitis without obstruction, R10.11 - Right upper quadrant pain, R79.89 - Other specified abnormal findings of blood chemistry CRP 3 Months E78.5 - Hyperlipidemia, unspecified, K76.0 - Fatty (change of) liver, not elsewhere classified, K80.20 - Calculus of gallbladder without cholecystitis without obstruction, R10.11 - Right upper quadrant pain, R79.89 - Other specified abnormal findings of blood chemistry Thyroid Stim Hormone (TSH) 3 Months E78.5 - Hyperlipidemia, unspecified, K76.0 - Fatty (change of) liver, not elsewhere classified, K80.20 - Calculus of gallbladder without cholecystitis without obstruction, R10.11 - Right upper quadrant pain, R79.89 - Other specified abnormal findings of blood chemistry Lipid Profile 3 Months E78.5 - Hyperlipidemia, unspecified, K76.0 - Fatty (change of) liver, not elsewhere classified, K80.20 - Calculus of gallbladder without cholecystitis without obstruction, R10.11 - Right upper quadrant pain, R79.89 - Other specified abnormal findings of blood chemistry Medications: New rosuvastatin 20 mg PO .at bed time 3 months 90 tabs 2RF
--- NOTE | 2024-10-07 10:35 | PRE.ANES_ITS ---
ASA Classification* ASA Classification ASA Classification: 2 Assessment & Plan Anesthesia* Anesthesia Assessment Anesthesia Assessment: Discussed sedation and/or anesthesia options, risks, benefits, and alternatives with patient/parents/legal guardian/POA. Questions invited. The patient/parents/legal guardian/POA seems to understand and agrees to proceed with anesthesia plan. Reviewed the physical assessment, medical history, allergy history and patient home medications list prior to surgery/procedure/anesthetic and documented any changes. Performed airway and anesthesia risk assessments. Anesthesia Type Anesthesia Type: MAC History Source History Obtained from:: Patient and Chart Anesthesia Focused Assessment* Temperature: 97.7 F Pulse Rate: 67 Blood Pressure: 149/82 Respiratory Rate: 16 Pulse Ox: 97 Oxygen Delivery Method: Room Air Airway Assessment Mouth opens: >3 cm Mallampati Score: II Teeth Condition: Caps/Crowns (Lower left cap On molar. It is tight.) and Implants (Patient has a top right molar implant. It is tight.) Neck Range of motion (ROM): Full ROM Labs Anesthesia Preop lab: CBC WBC 8.3 K/mm3 (4.4-11.0) 04/30/24 09:10 04/30/24 RBC 5.69 M/mm3 (4.6-6.2) 04/30/24 09:10 04/30/24 Hgb 16.0 g/dL (13.0-16.5) 04/30/24 09:10 04/30/24 Hct 48.5 % (40-54) 04/30/24 09:10 04/30/24 Plt Count 253 K/mm3 (150-450) 04/30/24 09:10 04/30/24 CHEMISTRY Potassium 4.5 mmol/L (3.5-5.1) 04/30/24 09:10 04/30/24 Sodium 139 mmol/L (136-145) 04/30/24 09:10 04/30/24 BUN 14 mg/dL (7-18) 04/30/24 09:10 04/30/24 Creatinine 0.91 mg/dL (0.70-1.30) 04/30/24 09:10 04/30/24 Glucose 116 mg/dL (74-106) H 04/30/24 09:10 04/30/24 TSH 0.80 uIU/mL (0.358-3.74) 11/23/22 10:11 COAG PT 13.1 SECONDS (11.7-14.9) 04/30/24 09:10 Pre-Assessment Diagnosis/Proposed Procedure Planned Operative Procedure(s): EGD Anesthesia History Anesthesia History - canal structure operator: Anesthesia History - canal structure operator Hx Hospitalization No 10/02/24 10:47 Any Problems With Anesthesia No 10/02/24 10:47 Cholinesterase deficiency No 10/02/24 10:47 You/Your Family Experience No 10/02/24 10:47 fever (hyperthermia) with Relationship Recent Exposure to Contagious No 10/07/24 10:19 Disease Does patient have nerve No 10/02/24 10:47 stimulator Patient instructed to have device shut off --Does patient have Pacemaker No 10/07/24 10:19 or ICD? When Was Last Pacemaker Check QUESTION #4 FULL TEXT: You/Your Family Experience fever (hyperthermia) with Anesthesia Last Oral Intake Last Oral intake: Last Oral Intake NPO since 05:00 10/07/24 10:19 Meds taken in AM with sips of Yes 10/07/24 10:19 water? Meds patient instructed to pantoprazole 10/07/24 10:19 take am of surgery Any additional information?: Yes Meds taken in AM with sips of water?: Yes PONV PONV - canal structure operator: PONV - canal structure operator Female No 10/02/24 10:47 HX of Motion Sickness No 10/02/24 10:47 HX of N/V After Surgery No 10/02/24 10:47 Non-Smoker Yes 10/02/24 10:47 Duration of Surgery greater No 10/02/24 10:47 than 60 minutes Number of Risk Factors 1 10/02/24 10:47 PONV Score Low Risk 10/02/24 10:47 Height & Weight Height & Weight: Anesthesia: Height & Weight Height 5 ft 9 in 10/07/24 10:19 Weight: 109 kg 10/07/24 10:19 Body Mass Index (BMI) 35.4 10/07/24 10:19 Respiratory Assessment Respiratory Assessment - canal structure operator: Respiratory Tract Infection Hx - canal structure operator Hx Respiratory Tract Infection No 10/02/24 10:47 STOP Sleep Apnea STOP Sleep Apnea - canal structure operator: STOP Sleep Apnea - canal structure operator Hx Hypertension No 10/02/24 10:47 Hx Sleep Apnea No 10/02/24 10:47 CPAP BIPAP Do you snore loudly (louder No 10/02/24 10:47 than talking or can be heard Do you often feel tired/ No 10/02/24 10:47 fatigued/ sleepy during daytime? Has anyone observed you stop No 10/02/24 10:47 breathing during sleep? STOP Results Negative 10/02/24 10:47 QUESTION #5 FULL TEXT : Do you snore loudly (louder than talking or can be heard through closed doors)? Tobacco Use History Tobacco Use History - canal structure operator: Tobacco Use History - canal structure operator Tobacco Use Smoking Status Never smoker 10/02/24 10:47 Hx Tobacco Use No 10/02/24 10:47 Years Smoking Packs Smoked per Day Smoking Cessation Date was within the last 15 years Hx Smoking Cessation Date Hx Smoking Cessation Counseling Hematologic Medial History Hematologic Hx - canal structure operator: Hematologic Medical Hx - school aide Hx of Blood Transfusion No 10/02/24 10:47 Hx of Transfusion in last 3 No 10/02/24 10:47 Months Date of Last Transfusion (if within last 3 months) Ever experience any problems No 10/02/24 10:47 with transfusion(s)? Specify any problems Hx of Preganancy in last 3 N/A 10/02/24 10:47 Months Nurse Filling Out Transfusion DSCHRIBER 10/02/24 10:47 & Questions: Date: 10/02/24 10/02/24 10:47 Time: 10:48 10/02/24 10:47 Patient unable to answer at this time (ie. confused, unrespo /Reproduction History /Reproductive History - canal structure operator: /Reproductive Hx- canal structure operator Hx Now No 10/02/24 10:47 Gestational Age (in weeks): EDC: Hx Hx Para Hx Section SAB No 10/02/24 10:47 Active Medications Active Medications: Current Medications Generic Name Dose Route Start Last Admin Trade Name Freq PRN Reason Stop Dose Admin Lactated Ringer's 1,000 mls @ 15 mls/hr 10/07/24 10:30 IV .Q48H JAQUELIN PFSH Medical History Alcohol use Gastric reflux History of pain when walking Back pain Non-smoker Hx of reduction of nasal fracture HLD (hyperlipidemia) Fatty liver Home Medications ?Medication ?Instructions ?Recorded ?Last Taken ?Type multivitamin (Daily Multi-Vitamin 1 tab PO DAILY 06/1710/06/24 10:00 History tablet) pantoprazole 40 mg tablet,delayed 40 mg PO DAILY 10/0210/07/24 05:30 History release rosuvastatin 20 mg tablet 20 mg PO QHS 10/02/24 23:00 History Allergy/AdvReac Type Severity Reaction Status Date / Time No Known Allergies Allergy Verified 10/07/24 10:14 Family History Father Diabetes Grandfather Cancer Sister Diabetes Grandmother Diabetes Lung cancer Mother Diabetes Arthritis Grandfather Heart disease Surgical History Hx of colonoscopy Hx of knee surgery H/O vasectomy Social History Smoking Status: Never smoker alcohol intake: current alcohol intake frequency: a few times a month substance use type: does not use Review of Systems (Anesthesia) ROS Narrative System reviewed and no additional complaints, except as documented.
--- NOTE | 2024-10-07 10:45 | EGD_PTH ---
PATIENT: SUZI SPENCER LOC: EN U#:[id number] AGE/SX: 44/M ROOM: RE10/07/[address]: Dr. Seth Alvarado DO : 1980 BED: DIS: 10/07/2024 SPEC #: [id number] RECD: 10/07/24 13:05 STATUS: KYMBERLY REI[place] #: [id number] SAGE: 10/07/24 10:[address]: Seth Alvarado DEPT: SURGICAL PATHOLOGY RECD BY: Feng Mendoza ENTERED: 10/07/24 13:56 SP TYPE: EGD BIOPSY SUDEEP DR: Dr. Prashant Taveras MD Tissues: A - Esophagus, NOS B - Duodenum, NOS Procedures: Surgery Specimen Level IV HEADER OPERATION: EGD and biopsy PRE-OP DIAGNOSIS: Cruz's esophagus TISSUE SUBMITTED: A- Distal esophagus biopsy, B- Duodenum biopsy MICROSCOPIC DIAGNOSIS A. Distal esophagus, biopsy: Cruz mucosa, negative for dysplasia. B. Duodenum, biopsy: Normal villous architecture with Vin gland hyperplasia. Negative for increased intraepithelial lymphocytes. MICROSCOPIC DESCRIPTION Slides are reviewed. GROSS DESCRIPTION A. Received in fixative is one container labeled with the patient's name and designated Distal esophagus biopsy. The specimen consists of three irregular fragments of light phelps soft tissue that in aggregate measure 0.2 to 0.6 cm. The specimen is totally submitted in one cassette. B. Received in fixative is one container labeled with the patient's name and designated Duodenum biopsy. The specimen consists of four irregular fragments of light phelps soft tissue that in aggregate measure <0.1 to 0.4 cm. The specimen is totally submitted in one cassette. KWADWO/ 10/07/2024 CPT:32282c1
--- NOTE | 2024-10-07 11:21 | OP.EGD_ITS ---
Patient Name: Jeremy Johnson Procedure Date: 10/07/2024 11:03 AM Date of : 1980 Age: 44 Procedure: Upper GI endoscopy Indications: Follow-up of Cruz's esophagus Providers: Seth Alvarado DO Referring MD: Landen Taveras Medicines: Monitored Anesthesia Care Patient Profile: This is a 44 year old male. Refer to note in patient chart for documentation of history and physical. Patient has symptoms of chronic heartburn. His most recent EGD for Cruz's biopsy was within the past three years. Complications: No immediate complications. Procedure: Pre-Anesthesia Assessment: - Prior to the procedure, a History and Physical was performed, and patient medications and allergies were reviewed. The patient is competent. The risks and benefits of the procedure and the sedation options and risks were discussed with the patient. All questions were answered and informed consent was obtained. Patient identification and proposed procedure were verified by the physician in the pre-procedure area. Mental Status Examination: alert and oriented. Airway Examination: normal oropharyngeal airway and neck mobility. Respiratory Examination: clear to auscultation. CV Examination: normal. Prophylactic Antibiotics: The patient does not require prophylactic antibiotics. Prior Anticoagulants: The patient has taken no anticoagulant or antiplatelet agents except for NSAID medication. ASA Grade Assessment: II - A patient with mild systemic disease. After reviewing the risks and benefits, the patient was deemed in satisfactory condition to undergo the procedure. The anesthesia plan was to use monitored anesthesia care (MAC). Immediately prior to administration of medications, the patient was re-assessed for adequacy to receive sedatives. The heart rate, respiratory rate, oxygen saturations, blood pressure, adequacy of pulmonary ventilation, and response to care were monitored throughout the procedure. The physical status of the patient was re-assessed after the procedure. After obtaining informed consent, the endoscope was passed under direct vision. Throughout the procedure, the patient's blood pressure, pulse, and oxygen saturations were monitored continuously. The gastroscope was introduced through the mouth, and advanced to the second part of duodenum. The upper GI endoscopy was accomplished without difficulty. The patient tolerated the procedure well. Scope In: 11:14:15 AM Scope Out: 11:18:00 AM Total Procedure Duration Time 0 hours 3 minutes 45 seconds Findings: The Z-line was irregular and was found 39 cm from the incisors. Biopsies were taken with a cold forceps for histology. Verification of patient identification for the specimen was done. Estimated blood loss was minimal. The entire examined stomach was normal. Patchy mild inflammation characterized by friability and granularity was found in the duodenal bulb and in the first portion of the duodenum. Biopsies were taken with a cold forceps for histology. Verification of patient identification for the specimen was done. Estimated blood loss was minimal. Impression: - Z-line irregular, 39 cm from the incisors. Biopsied. - Normal stomach. - Chronic duodenitis. Biopsied. Recommendation: - Discharge patient to home. - Resume previous diet. - Continue present medications. - Await pathology results. Procedure Code(s): --- Professional --- 62868, Esophagogastroduodenoscopy, flexible, transoral; with biopsy, single or multiple CPT copyright 2021 [employer]. All rights reserved. The codes documented in this report are preliminary and upon instructor pilot review may be revised to meet current compliance requirements. Seth Alvarado DO 10/07/2024 11:21:11 AM This report has been signed electronically. Number of Addenda: 0 Note Initiated On: 10/07/2024 11:03 AM
--- NOTE | 2024-10-07 11:22 | OP.CCLET_ITS ---
10/07/2024 Landen Taveras [address] [place] [address] Re : Upper GI endoscopy procedure for Jeremy Johnson Dear Dr. Taveras This procedure was performed on Monday, October 07, 2024. My impressions and recommendations are as follows: Impressions : - Z-line irregular, 39 cm from the incisors. Biopsied. - Normal stomach. - Chronic duodenitis. Biopsied. Recommendations : - Discharge patient to home. - Resume previous diet. - Continue present medications. - Await pathology results. My findings are described in the full procedure note, which is enclosed. If I can be of further assistance, please feel free to contact me at . Sincerely, Seth Alvarado, 10/07/2024 11:21:11 AM This report has been signed electronically.
--- NOTE | 2024-10-07 11:27 | PCM.POST.ANE ---
Anesthesia: Postop Eval I Current Vital Signs Temperature: 98 F Pulse Rate: 76 Blood Pressure: 121/77 Respiratory Rate: 16 Pulse Ox: 94 Oxygen Delivery Method: Room Air Assessment Airway patent: Yes Spontaneous unlabored respirations: Yes Mental status: Asleep nausea: No Vomiting: No Anesthesia Complication: No Fluid Hydration Crystalloid volume administer (ml): 400 Total IV fluid infused: 400 Progress Note Anesthesia document: Postop Eval 1 completed: Yes
--- NOTE | 2024-10-07 16:14 | PCM.POSTANE2 ---
Anesthesia Postop Eval I Sum Postop Eval Completion status Anesthesia document: Postop Eval 1 completed: Yes Anesthesia Postop Eval I Summary Anesthesia Postop Eval I Summary: Anesthesia Postop Eval I: Assessment Summary Airway patent Yes 10/07/24 11:28 [email or web address] Spontaneous unlabored Yes 10/07/24 11:28 [email or web address] respirations Mental status Asleep 10/07/24 11:28 [email or web address] nausea No 10/07/24 11:28 [email or web address] Vomiting No 10/07/24 11:28 [email or web address] Anesthesia Postop Eval I: Fluid Summary Crystalloid volume administer 400 10/07/24 11:28 [email or web address] (ml) Colloids volume administered ( ml) Blood Product volume administered (ml) Total IV fluid infused 400 10/07/24 11:28 [email or web address] Anesthesia Postop Eval I: Summary Notes Anesthesia Complication No 10/07/24 11:28 [email or web address] Anesthesia Complication Comment: Post-operative progress note Anesthesia: Postop Eval II Evaluation Mental status: Awake Pain Level: 0 nausea: No Vomiting: No
== END 2024-10-07 12:06 | disposition home or self-care (01) ==
LOC: EN 09:43 → AC 09:45
PROVIDERS: PCP Family Medicine; Referring Provider Family Medicine; Visit Provider Internal Medicine Gastroenterology
PROC: 0DJ08ZZ Inspection of Upper Intestinal Tract, Via Natural or Artificial Opening Endoscopic (ICD-10-PCS; CPT 43235; principal; 2024-10-07 10:40)
DX: K29.80 Duodenitis without bleeding (principal); K22.70 Barrett's esophagus without dysplasia; E78.5 Hyperlipidemia, unspecified; K21.9 Gastro-esophageal reflux disease without esophagitis; Z79.899 Other long term (current) drug therapy; K76.0 Fatty (change of) liver, not elsewhere classified
CPT/HCPCS: 43239; 88305; J2405

== ENCOUNTER → 2024-12-31 | Outpatient (CLI) | payer OTHER, SELFPAY ==
[2024-12-31 09:54] LABS: Hematocrit 48.0 % (40-54); Hemoglobin 15.9 g/dL (13.0-16.5); Immature Granulocytes Count 0.020 X10^3/uL (0.0-0.0); Mean Corp Hgb Conc 33.1 g/dL (32-36); Mean Corpuscular Volume 86.0 fL (80-94); Mean Platelet Vol. 11.0 fl (6.2-12.0); NRBC Flagged by Analyzer 0 % (0-5); Platelet Count 270 K/mm3 (150-450); RBC Distribution Width CV 12.8 % (11.6-14.6); RBC Distribution Width SD 39.8 fl (35.1-43.9); Red Blood Count 5.58 M/mm3 (4.6-6.2); White Blood Count 9.6 K/mm3 (4.4-11.0)
[2024-12-31 10:04] LABS: Prothrombin Time (Protime)PT. 12.8 SECONDS (11.7-14.9)
[2024-12-31 11:59] LABS: AST(SGOT) 50 U/L (<=37); Alanine Aminotransfer ALT/SGPT 49 U/L (<=46); Albumin, Serum 4.5 g/dL (3.5-5.0); Alkaline Phosphatase 78 U/L (40-129); Anion Gap 11 (5-15); BUN 15 mg/dL (4-19); BUN/Creat Ratio 14.7 RATIO (10-20); Calcium,Total 9.7 mg/dL (7.6-11.0); Carbon Dioxide 25.6 mmol/L (21.0-32.0); Chloride 105 mmol/L (98-108); Cholesterol 130 mg/dL (<=200); Globulin 3.0 g/dL (2.2-4.2); Glucose 124 mg/dL (70-99); Low Density Lipoprotein Calc. 69 mg/dL; Potassium 4.7 mmol/L (3.3-5.1); Triglycerides 129 mg/dL; Very Low Density Lipoprotein 26 mg/dL (5-40); cholesterol:hdl ratio screen 3.70
[2024-12-31 12:01] LABS: CRP < 3.00 mg/L (0.0-3.0)
[2025-01-01 16:09] LABS: ANTINUCLEAR ANTIBODIES DIRECT Negative (Negative)
== END | disposition home or self-care (01) ==
LOC: LAB 09:29
PROVIDERS: PCP Family Medicine; Referring Provider Internal Medicine; Visit Provider Internal Medicine
DX: K80.20 Calculus of gallbladder without cholecystitis without obstruction (principal); R79.89 Other specified abnormal findings of blood chemistry; K76.0 Fatty (change of) liver, not elsewhere classified; E78.5 Hyperlipidemia, unspecified; R10.11 Right upper quadrant pain
CPT/HCPCS: 80053; 80061; 83036; 84443; 85025; 85610; 86038; 86140; 86225; 86235